=== PATIENT | male | born 1930 | race Caucasian/White ===

== ENCOUNTER 2018-03-07 11:40 | Inpatient (IN) | payer OTHER ==
[2018-03-07 14:37] LABS: Albumin 2.8 g/dL (3.4-5.0); Bilirubin Direct 0.1 mg/dL (0-0.2); Bilirubin Total 0.3 mg/dL (0.2-1.0); Protein, Total 7.3 g/dL (6.4-8.2); Troponin (Emerg Dept Use Only) 0.11 ng/mL (0.0-0.045)
[2018-03-07] MEDS ORDERED: NA CHLORIDE 0.9% 500 ML ONE (14:45)
[2018-03-07] MEDS ORDERED: NA CHLORIDE 0.9% 1,000 ML ONE (14:45)
[2018-03-07 14:52] LABS: Absolute Lymphocytes (CBC) 0.9 K/uL (0.7-4.9); Absolute Monocytes 0.6 K/uL (0.1-1.3); Absolute Neutrophil 6.6 K/uL (1.8-8.0); Basophils % 0.6 % (0-1.3); Eosinophils % 0.5 % (0-4.4); Hematocrit 31.8 % (39.6-49.0); Lymphocytes % 11.2 % (15.3-44.8); MCH 31.2 pg (27.0-35.0); MCV 86.9 fL (80-100); MPV 7.7 fL (7.6-11.3); Monocytes % 7.5 % (3.3-12.3); RBC Red Blood Cell Count 3.66 M/uL (4.33-5.43)
--- NOTE | 2018-03-07 14:53 | EKG ---
Test Date: 2018-03-07 Test Time: 13:56:03 Systems Programmer: PATEL MEASUREMENT RESULTS: Intervals: Rate: 86 [place]: 204 QRSD: 144 QT: 400 QTc: 478 [place]: P: [place]: 204 QRS: 11 T: 27 INTERPRETIVE STATEMENTS: Normal sinus rhythm Right bundle branch block Abnormal ECG Compared to ECG 01/17/2014 09:54:51 Sinus tachycardia no longer present Electronically Signed On 03-07-18 14:53:02 CABLE MAKER by Carlos Montejo
[2018-03-07 14:59] LABS: Protime INR 1.12
--- NOTE | 2018-03-07 15:52 | RAD REPORT ---
EXAM DESCRIPTION: CT - Abdomen Pelvis Wo Contrast - 03/07/2018 3:33 pm CLINICAL HISTORY: Abdominal pain COMPARISON: January 2014 TECHNIQUE: Axial [address] imaging of the abdomen and pelvis was performed without IV contrast. No IV contrast was given because of allergy, abnormal renal function, patient refusal or physician re quest. No oral contrast was given. All CT scans are performed using dose optimization technique as appropriate and may include automated exposure control or mA/KV adjustment according to patient size. FINDINGS: Patient has interstitial thickening throughout both lung bases progressive but not new fro m 2013. This could be progressive fibrosis, interstitial edema/ infiltrate or a combination. Small hi atal hernia is present. The liver, spleen and pancreas show no suspicious findings on non-contrast imaging. Gallbladder and b iliary tree are also without suspicious finding. No hydronephrosis or suspicious renal mass. No significant adrenal finding. Isodense renal masses an d pyelonephritis cannot be excluded in the absence of IV contrast. The urinary bladder is without sig nificant finding. No gastric dilatation or gastric wall thickening. Multiple distended small bowel loops are present. C olon is not dilated. No point of obstruction identified. Patient has bilateral inguinal hernias. The right inguinal hernia contains loops of small bowel. No bowel wall edema. This does not appear to be a point of obstruction. Distal descending colon extends into the left inguinal hernia. No free air or pneumatosis. Prostate gland is enlarged. No suspicious bony findings. IMPRESSION: Multiple distended but nondilated small bowel loops. Small bowel obstruction is not iden tifiable at this time. No free air, abscess or surgically emergent finding. Bilateral inguinal hernias are present containing small bowel on the right and colon on the left. No bowel wall thickening or edema. Interstitial thickening throughout both lung bases progressive from 2013 comparison. This could be pr ogressive fibrosis, superimposed infiltrate/edema or a combination. Full assessment is limited is the absence of IV contrast.
--- NOTE | 2018-03-07 16:57 | ER ---
Nurse's Notes [facility] Name: Sushant Garrett Age: 87 yrs Sex: Male : 1930 Arrival Date: 03/07/2018 Time: 11:46 Bed 5 Private MD: Unknown, Unknown Diagnosis: Weakness;Unspecified kidney failure;Non-ST elevation (NSTEMI) myocardial infarction;Nausea;Diarrhea, unspecified Presentation: 03/07 12:01 Presenting complaint: Patient states: Decreased appetite and insomnia for 6 days. aj Diarrhea for 3 days. Transition of care: patient was not received from another setting of care. Onset of symptoms was March 01, 2018. Risk Assessment: Do you want to hurt yourself or someone else? Patient reports no desire to harm self or others. Initial Sepsis Screen: Does the patient meet any 2 criteria? No. Patient's initial sepsis screen is negative. Does the patient have a suspected source of infection? No. Patient's initial sepsis screen is negative. Care prior to arrival: None. 12:01 Method Of Arrival: Wheelchair aj 12:01 Acuity: MIKE 3 aj Triage Assessment: 12:03 General: Appears in no apparent distress. comfortable, Behavior is calm, cooperative, aj appropriate for age. Pain: Denies pain. Neuro: Level of Consciousness is awake, alert, obeys commands, Oriented to person, place, time, situation, Appropriate for age. Respiratory: Airway is patent Respiratory effort is even, unlabored, Respiratory pattern is regular, symmetrical. GI: Reports anorexia. Derm: Skin is intact, is healthy with good turgor, Skin is pink, warm \T\ dry. normal. Historical: - Allergies: 12:03 No Known Allergies; aj - Home Meds: 12:03 Tarceva 150 mg oral tab 1 tab once daily [Active]; dicyclomine 10 mg Oral cap 1 cap 3 aj times per day [Active]; levothyroxine 150 mcg tab 1 tab once daily [Active]; - PMHx: 12:03 Cancer, Lung; aj - PSHx: 12:03 lung biopsy; aj - Immunization history:: Adult Immunizations up to date. - Social history:: Smoking status: Patient/guardian denies using tobacco. - Ebola Screening: : Patient negative for fever greater than or equal to 101.5 degrees Fahrenheit, and additional compatible Ebola Virus Disease symptoms Patient denies exposure to infectious person Patient denies travel to an Ebola-affected area in the 21 days before illness onset No symptoms or risks identified at this time. - Family history:: not pertinent. Screenin:56 Abuse screen: Denies threats or abuse. Denies injuries from another. Nutritional bp screening: No deficits noted. Tuberculosis screening: No symptoms or risk factors identified. Fall Risk None identified. Assessment: 12:56 General: SEE TRIAGE NOTE. bp 14:17 Reassessment: PO CONTRAST COMPLETED, CT NOTIFIED. bp 14:55 Reassessment: IVF INFUSING, LAB AND RAD RESULTS PENDING, VS STABLE ON MONITOR. bp 17:23 Reassessment: ADMIT MD AT B/S. bp 18:13 Reassessment: IVF INFUSING, ADMIT IN PROCESS. bp 19:15 General: Appears in no apparent distress. Behavior is calm, cooperative, appropriate bp for age. Pain: Denies pain. Neuro: Level of Consciousness is awake, alert, obeys commands, Oriented to person, place, time, situation. Cardiovascular: Patient's skin is warm and dry. Respiratory: Airway is patent Respiratory effort is even, unlabored, Respiratory pattern is regular, symmetrical. GI: Abdomen is non-distended. Derm: Skin is pink, warm \T\ dry. 19:15 General: Appears in no apparent distress. Behavior is calm, cooperative, appropriate ea for age. Pain: Denies pain. Neuro: Level of Consciousness is awake, alert, obeys commands, Oriented to person, place, time, situation. Cardiovascular: Patient's skin is warm and dry. Respiratory: Airway is patent Respiratory effort is even, unlabored, Respiratory pattern is regular, symmetrical. GI: Abdomen is non-distended. Derm: Skin is pink, warm \T\ dry. 19:49 Reassessment: Patient appears in no apparent distress at this time. Patient and/or jd3 family updated on plan of care and expected duration. Pain level reassessed. Patient is alert, oriented x 3, equal unlabored respirations, skin warm/dry/pink. 20:12 Reassessment: Patient and/or family updated on plan of care and expected duration. Pain ea level reassessed. Report called to Brittnee WALDRON. 20:53 Reassessment: Patient and/or family updated on plan of care and expected duration. Pain ea level reassessed. Patient is alert, oriented x 3, equal unlabored respirations, skin warm/dry/pink. 21:02 Reassessment: Patient appears in no apparent distress at this time. Patient and/or jd3 family updated on plan of care and expected duration. Pain level reassessed. Patient is alert, oriented x 3, equal unlabored respirations, skin warm/dry/pink. Vital Signs: 12:03 BP 119 / 64; Pulse 52; Resp 19; Temp 98.5; Pulse Ox 96% on R/A; Weight 63.5 kg; Height aj 5 ft. 6 in. (167.64 cm); 14:14 BP 113 / 70; Pulse 127; Resp 18; Pulse Ox 96% ; bp 14:54 BP 106 / 57; Pulse 94; Resp 19; Pulse Ox 98% ; bp 17:00 BP 112 / 43; Pulse 86; Resp 21; Pulse Ox 99% ; bp 19:47 BP 102 / 64; Pulse 88; Resp 18 S; Pulse Ox 100% on R/A; jd3 20:53 BP 110 / 60; Pulse 80; Resp 80; Pulse Ox 99% on R/A; ea 21:02 BP 105 / 60; Pulse 83; Resp 19 S; Pulse Ox 100% on R/A; jd3 12:03 Body Mass Index 22.60 (63.50 kg, 167.64 cm) aj ED Course: 11:46 Patient arrived in ED. mr 11:47 Unknown, Unknown is Private Physician. mr 12:02 Triage completed. aj 12:03 Arm band placed on left wrist. Patient placed in waiting room, Patient notified of wait aj time. 12:55 Michael Jorge, RN is Primary Nurse. bp 12:56 Patient has correct armband on for positive identification. Bed in low position. Call bp light in reach. Side rails up X2. Adult w/ patient. 13:00 Sonu Soliman MD is Attending Physician. dwight 14:17 Inserted saline lock: 22 gauge in right antecubital area, using aseptic technique. bp Blood collected. 14:29 X-ray completed. Portable x-ray completed in exam room. Patient tolerated procedure jb2 well. 14:30 XRAY Chest (1 view) In Process Unspecified. EDMS 14:39 Lab(s) recollected, by me, sent to lab. [facility] 15:32 CT completed. Patient tolerated procedure well. Patient moved to CT via stretcher. nj Patient moved back from CT. 15:33 Abdomen In Process Unspecified. EDMS 16:49 Kierra Whelan MD is Hospitalizing Provider. dwight 19:52 Straight cath inserted, using sterile technique, 16 Fr. Specimen obtained. bp 19:52 No provider procedures requiring assistance completed. Patient admitted, IV remains in bp place. 20:39 Ultrasound completed. Patient tolerated well. Patient moved back from ultrasound. lc3 Administered Medications: 14:20 Drug: NS 0.9% 500 ml Route: IV; Rate: bolus; Site: right antecubital; bp 19:52 Follow up: Response: No adverse reaction; IV Status: Completed infusion jd3 14:20 Drug: NS 0.9% 1000 ml Route: IV; Rate: 125 ml/hr; Site: right antecubital; bp 19:52 Follow up: Response: No adverse reaction; IV Status: Infusion continued upon admission jd3 17:36 Drug: Aspirin 162 mg Route: PO; bp 19:51 Follow up: Response: No adverse reaction jd3 Outcome: 16:57 Decision to Hospitalize by Provider. dwight 19:53 Condition: stable bp 19:53 Instructed on the need for admit, Demonstrated understanding of instructions, follow-up care, medications. 20:11 Admitted to Med/surg accompanied by tech, room 415, with chart, Report called to Brittnee michele RN 21:03 Patient left the ED. jd3 Signatures: Dispatcher [employer] EDMS Jes Agee, Sonu Wright RN, MD MD cha Rivera, Martha mr Garcia, Rehan barraza2 Estee Harman Nathan nj Herrera, Deanna 3 Brenna Monroe RN RN ea Davies, Jonathon, RN RN jMichael White, RN RN bp
--- NOTE | 2018-03-07 16:57 | EDPHYS ---
Physician Documentation [facility] Name: Sushant Garrett Age: 87 yrs Sex: Male : 1930 Arrival Date: 03/07/2018 Time: 11:46 Bed 5 Private MD: Unknown, Unknown ED Physician Sonu Soliman HPI: 03/07 13:38 This 87 yrs old Male presents to ER via Wheelchair with complaints of dwight Dehydration. 13:38 The patient presents with abdominal pain in the upper abdomen, in the lower abdomen, dwight abdominal distention in the upper abdomen, in the lower abdomen. Onset: The symptoms/episode began/occurred 3 day(s) ago. The patient presents to the emergency department with nausea, diarrhea, abdominal pain, of the right upper quadrant, left upper quadrant, right lower quadrant and left lower quadrant. Onset: The symptoms/episode began/occurred 3 day(s) ago. Possible causes: unknown. The symptoms are aggravated by nothing. The symptoms are alleviated by remaining still. The symptoms do not radiate. Historical: - Allergies: 12:03 No Known Allergies; aj - Home Meds: 12:03 Tarceva 150 mg oral tab 1 tab once daily [Active]; dicyclomine 10 mg Oral cap 1 cap 3 aj times per day [Active]; levothyroxine 150 mcg tab 1 tab once daily [Active]; - PMHx: 12:03 Cancer, Lung; aj - PSHx: 12:03 lung biopsy; aj - Immunization history:: Adult Immunizations up to date. - Social history:: Smoking status: Patient/guardian denies using tobacco. - Ebola Screening: : Patient negative for fever greater than or equal to 101.5 degrees Fahrenheit, and additional compatible Ebola Virus Disease symptoms Patient denies exposure to infectious person Patient denies travel to an Ebola-affected area in the 21 days before illness onset No symptoms or risks identified at this time. - Family history:: not pertinent. ROS: 13:38 Constitutional: Negative for fever, chills, and weight loss, Eyes: Negative for injury, dwight pain, redness, and discharge, ENT: Negative for injury, pain, and discharge, Neck: Negative for injury, pain, and swelling, Cardiovascular: Negative for chest pain, palpitations, and edema, Respiratory: Negative for shortness of breath, cough, wheezing, and pleuritic chest pain, Back: Negative for injury and pain, : Negative for injury, bleeding, discharge, and swelling, MS/Extremity: Negative for injury and deformity, Skin: Negative for injury, rash, and discoloration, Neuro: Negative for headache, weakness, numbness, tingling, and seizure, Psych: Negative for depression, anxiety, suicide ideation, homicidal ideation, and hallucinations, Allergy/Immunology: Negative for hives, rash, and allergies, Endocrine: Negative for neck swelling, polydipsia, polyuria, polyphagia, and marked weight changes, Hematologic/Lymphatic: Negative for swollen nodes, abnormal bleeding, and unusual bruising. 13:38 Abdomen/GI: Positive for abdominal pain, of the right upper quadrant, left upper quadrant, right lower quadrant and left lower quadrant. Exam: 13:38 Constitutional: This is a well developed, well nourished patient who is awake, alert, dwight and in no acute distress. Head/Face: Normocephalic, atraumatic. Eyes: Pupils equal round and reactive to light, extra-ocular motions intact. Lids and lashes normal. Conjunctiva and sclera are non-icteric and not injected. Cornea within normal limits. Periorbital areas with no swelling, redness, or edema. ENT: Nares patent. No nasal discharge, no septal abnormalities noted. Tympanic membranes are normal and external auditory canals are clear. Oropharynx with no redness, swelling, or masses, exudates, or evidence of obstruction, uvula midline. Mucous membranes moist. Neck: Trachea midline, no thyromegaly or masses palpated, and no cervical lymphadenopathy. Supple, full range of motion without nuchal rigidity, or vertebral point tenderness. No Meningismus. Chest/axilla: Normal chest wall appearance and motion. Nontender with no deformity. No lesions are appreciated. Cardiovascular: Regular rate and rhythm with a normal S1 and S2. No gallops, murmurs, or rubs. Normal PMI, no JVD. No pulse deficits. Respiratory: Lungs have equal breath sounds bilaterally, clear to auscultation and percussion. No rales, rhonchi or wheezes noted. No increased work of breathing, no retractions or nasal flaring. Back: No spinal tenderness. No costovertebral tenderness. Full range of motion. Male : Normal genitalia with no discharge or lesions. Skin: Warm, dry with normal turgor. Normal color with no rashes, no lesions, and no evidence of cellulitis. MS/ Extremity: Pulses equal, no cyanosis. Neurovascular intact. Full, normal range of motion. Neuro: Awake and alert, GCS 15, oriented to person, place, time, and situation. Cranial nerves II-XII grossly intact. Motor strength 5/5 in all extremities. Sensory grossly intact. Cerebellar exam normal. Normal gait. Psych: Awake, alert, with orientation to person, place and time. Behavior, mood, and affect are within normal limits. 13:38 Abdomen/GI: Inspection: distension, Bowel sounds: normal, Palpation: mild abdominal tenderness, in the right lower quadrant, Liver: no appreciated palpable abnormalities, Hernia: noted in the right inguinal area and right femoral area, incarceration, is not appreciated, tenderness, that is mild, bowel sounds are appreciated on auscultation. Vital Signs: 12:03 BP 119 / 64; Pulse 52; Resp 19; Temp 98.5; Pulse Ox 96% on R/A; Weight 63.5 kg; Height aj 5 ft. 6 in. (167.64 cm); 14:14 BP 113 / 70; Pulse 127; Resp 18; Pulse Ox 96% ; bp 14:54 BP 106 / 57; Pulse 94; Resp 19; Pulse Ox 98% ; bp 17:00 BP 112 / 43; Pulse 86; Resp 21; Pulse Ox 99% ; bp 19:47 BP 102 / 64; Pulse 88; Resp 18 S; Pulse Ox 100% on R/A; jd3 20:53 BP 110 / 60; Pulse 80; Resp 80; Pulse Ox 99% on R/A; ea 21:02 BP 105 / 60; Pulse 83; Resp 19 S; Pulse Ox 100% on R/A; jd3 12:03 Body Mass Index 22.60 (63.50 kg, 167.64 cm) MDM: 13:00 Patient medically screened. [facility] 13:41 Data reviewed: vital signs, nurses notes, lab test result(s), EKG, radiologic studies, [facility] CT scan, plain films. 03/07 13:36 Order name: Basic Metabolic Panel; Complete Time: 16:43 [facility] 03/07 13:36 Order name: CBC with Diff; Complete Time: 16:43 [facility] 03/07 13:36 Order name: LFT's; Complete Time: 16:43 [facility] 03/07 13:36 Order name: Magnesium; Complete Time: 16:43 [facility] 03/07 13:36 Order name: NT PRO-BNP; Complete Time: 16:43 [facility] 03/07 13:36 Order name: PT-INR; Complete Time: 16:43 [facility] 03/07 13:36 Order name: Troponin (emerg Dept Use Only); Complete Time: 16:43 [facility] 03/07 13:36 Order name: Lipase; Complete Time: 16:43 [facility] 03/07 13:36 Order name: Urine Culture [facility] 03/07 13:36 Order name: Stool Culture [facility] 03/07 13:36 Order name: Fecal Leukocyte Stain [facility] 03/07 13:36 Order name: CDIFF [facility] 03/07 13:36 Order name: Lactate; Complete Time: 16:43 [facility] 03/07 18:42 Order name: T4 Free [facility] 03/07 13:36 Order name: XRAY Chest (1 view) [facility] 03/07 13:36 Order name: EKG; Complete Time: 13:39 [facility] 03/07 13:36 Order name: Cardiac monitoring; Complete Time: 14:06 [facility] 03/07 13:36 Order name: EKG - Nurse/Tech; Complete Time: 14:06 [facility] 03/07 13:36 Order name: IV Saline Lock; Complete Time: 14:06 [facility] 03/07 15:02 Order name: Abdomen ; Complete Time: 16:43 [facility] 03/07 16:57 Order name: CONS Physician Consult [facility] 03/07 16:58 Order name: CONS Physician Consult [facility] 03/07 18:42 Order name: Thyroid Stimulating Hormone [facility] 03/07 19:54 Order name: Urine Dipstick--Ancillary (enter results) [place] 03/07 20:31 Order name: Urine Dipstick-Ancillary [facility] 03/07 20:56 Order name: US [facility] 03/07 13:36 Order name: Labs collected and sent; Complete Time: 14:07 [facility] 03/07 13:36 Order name: O2 Per Protocol; Complete Time: 14:07 [facility] 03/07 13:36 Order name: O2 Sat Monitoring; Complete Time: 14:07 [facility] 03/07 13:36 Order name: Urine Dipstick-Ancillary (obtain specimen); Complete Time: 20:15 [facility] Administered Medications: 14:20 Drug: NS 0.9% 500 ml Route: IV; Rate: bolus; Site: right antecubital; bp 19:52 Follow up: Response: No adverse reaction; IV Status: Completed infusion jd3 14:20 Drug: NS 0.9% 1000 ml Route: IV; Rate: 125 ml/hr; Site: right antecubital; bp 19:52 Follow up: Response: No adverse reaction; IV Status: Infusion continued upon admission jd3 17:36 Drug: Aspirin 162 mg Route: PO; bp 19:51 Follow up: Response: No adverse reaction jd3 Disposition: 03/07/18 16:57 Hospitalization ordered by Kierra Whelan for Inpatient Admission. Preliminary diagnosis are Weakness, Unspecified kidney failure, Non-ST elevation (NSTEMI) myocardial infarction, Nausea, Diarrhea, unspecified. - Bed requested for Telemetry/MedSurg (Inpatient). - Status is Inpatient Admission. jd3 - Condition is Fair. - Problem is new. - Symptoms have improved. UTI on Admission? No Signatures: Dispatcher [employer] EDKS Jes Agee RN RN aj Anderson, Corey, MD MD cha Fitzgerald, Diane, RN RN df Davies, Jonathon, RN RN jd3 Peltier, Brian RN RN bp Corrections: (The following items were deleted from the chart) 15:02 13:39 Abdomen Pelvis W Con+CT.RAD.HEMANT ordered. [facility] 19:17 16:57 Hospitalization Ordered by Keirra Whelan MD for Inpatient Admission. Preliminary df diagnosis is Weakness; Unspecified kidney failure; Non-ST elevation (NSTEMI) myocardial infarction; Nausea; Diarrhea, unspecified. Bed requested for Telemetry/MedSurg (Inpatient). Status is Inpatient Admission. Condition is Fair. Problem is new. Symptoms have improved. UTI on Admission? No. dwight 21:03 19:17 03/07/2018 16:57 Hospitalization Ordered by Kierra Whelan MD for Inpatient jd3 Admission. Preliminary diagnosis is Weakness; Unspecified kidney failure; Non-ST elevation (NSTEMI) myocardial infarction; Nausea; Diarrhea, unspecified. Bed requested for Telemetry/MedSurg (Inpatient). Status is Inpatient Admission. Condition is Fair. Problem is new. Symptoms have improved. UTI on Admission? No. df
--- NOTE | 2018-03-07 16:59 | RAD REPORT ---
EXAM DESCRIPTION: RAD - Chest Single View - 03/07/2018 2:32 pm CLINICAL HISTORY: Decreased appetite, abdominal pain, history of lung cancer COMPARISON: January 2014 TECHNIQUE: AP portable chest image was obtained 1417 hours . FINDINGS: Lungs are fibrotic. Prominent bilateral lung base interstitial stranding is present. Diaph ragm is flattened. Lungs are hyperexpanded compared to the prior study. History indicates prior lung cancer diagnosis. No clearly defined mass on this study. Stranding in the lateral left mid lung field could be progressive scarring or an infiltrate. There are no surgical clips identifiable to indicate a lobectomy or wedge resection. Heart and vasculature are normal. No measurable pleural effusion and no pneumothorax. No acute bony abnormality seen. No acute aortic findings suspected. IMPRESSION: Interstitial fibrotic changes are present. 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 Bilateral lung base interstitial opacification could be focally prominent fibrosis or superimposed in terstitial edema/ infiltrate. Minimal stranding in the lateral mid lung field could be infiltrate or scarring.
[2018-03-07] MEDS ORDERED: ALBUTEROL 2.5 MG/3 ML NEB SOL NEB PRN (17:30)
[2018-03-07] MEDS ORDERED: ONDANSETRON 4 MG/2 ML VIAL IV PRN (17:30)
[2018-03-07] MEDS ORDERED: IPRATROPIUM BROM 0.5MG/2.5ML NEB PRN (17:30)
[2018-03-07] MEDS ORDERED: ACETAMINOPHEN 500 MG TAB PO PRN (17:30)
[2018-03-07] MEDS ORDERED: ASPIRIN EC 81 MG TAB PO ONE (17:40)
--- NOTE | 2018-03-07 17:47 | P.HP ---
Certification for Inpatient Patient admitted to: Inpatient With expected LOS: >2 Midnights Patient will require the following post-hospital care: None Practitioner: I am a practitioner with admitting privileges, knowledge of patient current condition, hospital course, and medical plan of care. Services: Services provided to patient in accordance with Admission requirements found in Title 42 Section 412.3 of the Code of Federal Regulations Patient History Date of Service: 03/07/18 Primary Care Provider: Dr. Tirado([place], [place]); Oncology-Dr. Donahue() Reason for admission: Nausea, diarrhea History of Present Illness: 87-year-old male presented to the emergency room with nausea and diarrhea. Patient reports that he has been having nausea and diarrhea for quite some time. He denies any significant abdominal pain. He also denies any chest pain, shortness of breath or palpitations. Recently the diarrhea has been very watery. There is no blood in the stool or melena. He denies any fever or chills. He reports that the nausea and diarrhea have been consistent since he started on Tarceva his lung cancer medication. Most recently he has had poor oral intake. His daughter told him he needed to go to the emergency room for further evaluation. He initially resisted but after talking to his PCP it was recommended that he go to the ER for evaluation. In the ER he was evaluated. Blood pressure stable. White count 8.2, hemoglobin 11.4, platelet count of 215. Sodium 128, potassium 4.0, BUN of 65, creatinine 3.3 with a GFR of 18. Glucose 111. Lactic acid 1.1, AST 53. Troponin elevated at 0.11 with a BNP of 5252. Chest x-ray showed COPD pattern. EKG showed no significant ST changes. CT scan of the abdomen showed multiple distended but nondilated small bowel loops. Small-bowel obstruction was not identified at this time. No free air or abscess noted. No surgically emergent finding noted. Patient has bilateral inguinal hernia as. No bowel wall thickening or edema. Interstitial thickening throughout both lungs bases progressive since 2013. Patient was admitted for further evaluation. When I saw the patient ER, he appeared stable. He did not appear septic. He family was at bedside. He reports heavy use an antibiotic for for 10 days recently foreign infection in his toe. He has been taking Tarceva for over 5 years. Since taking medication-Tarceva he has noted increased nausea and diarrhea which is the potential side effect. The patient has a history of hypothyroidism, non small-cell lung cancer, former tobacco use, restless leg syndrome. Allergies No Known Allergies Allergy (Verified 08/08/12 18:11) Home medications list reviewed: Yes Home Medications: Ascorbic Acid [Vitamin C*] 500 mg PO BEDTIME 08/09/12 Aspirin Enteric Coated [ASPIRIN 81 MG EC*] 81 mg PO DAILY 08/09/12 Calcium 600 mg PO DAILY 08/09/12 Levothyroxine [Synthroid*] 150 mcg PO [id number] 08/09/12 Lysine [l-Lysine] 500 mg PO BEDTIME 08/09/12 Multivitamin [Multiple Vitamins] 1 each PO DAILY 08/09/12 [place]-3 Fatty Acids [Fish Oil] 1,000 mg PO BID 08/09/12 Omeprazole [Prilosec] 20 mg PO DAILY 08/09/12 Pramipexole Di-HCl [Mirapex] 1.5 mg PO NOON 08/09/12 Saw [place] 320 mg PO DAILY 08/09/12 Sildenafil Citrate [Viagra] 100 mg PO DAILY PRN 08/09/12 Testosterone 180 08/09/12 - Past Medical/Surgical History Diabetic: No -: Non small-cell lung cancer -: Hypothyroidism -: Former tobacco use -: Restless leg syndrome -: Chronic diarrhea/nausea Past Surgical History: Patient denies surgical history Psychosocial/ Personal History: The patient is a . He lives by himself. He has several children - Family History Family History: Reviewed- Non-Contributory - Social History Smoking Status: Former smoker Alcohol use: Yes CD- Drugs: No Caffeine use: Yes Place of Residence: Home Review of Systems General: Weakness, As per HPI Eyes: Unremarkable ENT: Unremarkable Respiratory: Unremarkable Cardiovascular: Unremarkable Gastrointestinal: Nausea, Diarrhea, As per HPI Genitourinary: Unremarkable Musculoskeletal: Unremarkable Integumentary: Unremarkable Neurological: Unremarkable Lymphatics: Unremarkable Physical Examination - Physical Exam General: Alert, In no apparent distress, Oriented x3, Cooperative HEENT: Atraumatic, Normocephalic, PERRLA, Other (Dry mucous membranes) Neck: Supple Respiratory: Clear to auscultation bilaterally, Normal air movement Cardiovascular: Normal pulses, Regular rate/rhythm Gastrointestinal: Normal bowel sounds, Soft and benign, Non-distended, No ascites, No tenderness, No masses, No rebound, No guarding Musculoskeletal: No contractures, No erythema, No tenderness, No warmth Integumentary: No tenderness/swelling, No erythema, No warmth, No cyanosis Neurological: Normal speech, Normal strength at 5/5 x4 extr, Normal tone, Normal affect - Studies Laboratory Data (last 24 hrs) 03/07/18 14:37: PT 13.2 H, INR 1.12 03/07/18 14:02: WBC 8.2, Hgb 11.4 L, Hct 31.8 L, Plt Count 215 03/07/18 14:02: Sodium 128 L, Potassium 4.0, BUN 65 H, Creatinine 3.30 H, Glucose 111 H, Magnesium 2.0, Total Bilirubin 0.3, AST 53 H, ALT 53, Alkaline Phosphatase 106, Lipase 333 Assessment and Plan - Plan Impression: Nausea, diarrhea likely related to colitis versus [id number] with noted dehydration complicated with acute renal failure and hyponatremia Non-small cell lung cancer COPD Former tobacco use Hypothyroidism Elevated troponin Restless leg syndrome Plan: Nausea, diarrhea likely related to colitis versus [id number]-[id number] with noted dehydration complicated with acute renal failure and hyponatremia: Will start IV fluids. Will also start Cipro and Flagyl as colitis is suspected. CT scan reviewed. Will check stool for culture, guaiac, and C diff colitis. Will monitor electrolytes closely. Patient has been taking Tarceva which can cause nausea and diarrhea. I will try to get a hold of his oncologist tomorrow discuss the possibility of discontinuation of medication. Will continue to hold Tarceva at this time. Will check renal ultrasound to evaluate for possible renal disease or dehydration. Will consult Nephrology to further evaluate. Non-small cell lung cancer: Will maintain sats above 90%. Will hold Tarceva due to above findings. Will discuss with his oncologist with about the possibility of stopping this medication COPD: Suspect the patient has underlying COPD. Will start Brovana and albuterol nebs. Will maintain sats above 90%. Former tobacco use: Patient has not smoked in quite some time. Hypothyroidism: Will continue with his medication. Will check tsh and free T4. Elevated troponin: I suspect this is likely stress related. Patient without any significant EKG changes. Will continue monitor EKG and troponin. Will check echocardiogram. Will consult cardiology for further evaluation and recommendation. Restless leg syndrome: Will continue with his medication. Discharge Plan: Home - Advance Directives Does patient have a Living Will: Yes Does patient have a Durable POA for Healthcare: No - Code Status/Comfort Care Code Status Assessed: Yes (Patient is DNR) Time Spent Managing Pts Care (In Minutes): 55
[2018-03-07] MEDS ORDERED: ENOXAPARIN 40 MG/0.4 ML SQ SCH (18:00)
[2018-03-07 18:41] LABS: Thyroid Stimulating Hormone 5.65 uIU/mL (0.360-3.740)
[2018-03-07 20:30] LABS: Urine Blood TRACE (NEG); Urine Glucose NEGATIVE (NEG); Urine Protein 2+ (NEG); Urine Specific Gravity 1.015 (1.005-1.030); Urine pH 5.5 (5.0-7.0)
[2018-03-07] MEDS: ARFORMOTEROL TARTRATE 15 MCG/2 ML VIAL.NEB NEB SCH (20:40)
--- NOTE | 2018-03-07 20:55 | RAD REPORT ---
EXAM DESCRIPTION: US - Renal Ultrasound-Complete - 03/07/2018 8:39 pm CLINICAL HISTORY: Acute renal failure COMPARISON: CT imaging March 07 FINDINGS: The right kidney measures 10.4 x 5.0 x 4.9 cm. The left kidney measures 10.1 x 4.6 x 3.5 cm. Cortical thickness is normal. Increased cortical echogenicity present consistent with medical shaq al disease. Patient has bilateral extrarenal pelves. No hydronephrosis. No solid mass identifiable. A 4.6 centimeter benign cyst is present upper pole right kidney. Additional small cysts are present. No bladder wall thickening or mass. No intraluminal stone or mass. IMPRESSION: Bilateral extrarenal pelves. No hydronephrosis or solid mass lesion. Medical renal disease is evident. No significant cortical thinning. Benign renal cysts are present.
[2018-03-07] MEDS ORDERED: Ciprofloxacin 200mg IV 200 MG/100 ML IV.SOLN. IV SCH (21:00)
[2018-03-07] MEDS: Ciprofloxacin 200mg IV 200 MG/100 ML IV.SOLN. IV SCH (22:45)
[2018-03-07] MEDS: NA CHLORIDE 0.9% 1,000 ML IV SCH (22:46)
[2018-03-07] MEDS: PRAMIPEXOLE 1 MG TAB PO SCH (22:46)
[2018-03-07] MEDS: ENOXAPARIN 30 MG/0.3 ML SQ SCH (22:46)
[2018-03-07 23:55] LABS: Troponin I 0.08 ng/mL (0.0-0.045)
[2018-03-07 23:57] LABS: CKMB Creatine Kinase MB 13.9 ng/mL (0.3-3.6)
[2018-03-08] MEDS: METRONIDAZOLE 500mg IVPB 500 MG/100 ML BAG IV SCH ×3 (00:41→17:11)
[2018-03-08 04:24] VITALS: BMI 19.7
[2018-03-08] MEDS: NA CHLORIDE 0.9% 1,000 ML IV SCH ×2 (05:03→14:11)
[2018-03-08] MEDS: LEVOTHYROXINE SOD 0.075 MG TAB PO SCH (05:03)
[2018-03-08 07:01] LABS: Absolute Monocytes 0.7 K/uL (0.1-1.3); Absolute Neutrophil 5.1 K/uL (1.8-8.0); Basophils % 0.5 % (0-1.3); Eosinophils % 2.5 % (0-4.4); Hematocrit 30.2 % (39.6-49.0); Lymphocytes % 14.7 % (15.3-44.8); MCH 30.6 pg (27.0-35.0); MCV 86.9 fL (80-100); MPV 7.5 fL (7.6-11.3); Monocytes % 10.3 % (3.3-12.3); RBC Red Blood Cell Count 3.48 M/uL (4.33-5.43)
[2018-03-08 07:04] LABS: Albumin 2.4 g/dL (3.4-5.0); Bilirubin Total 0.3 mg/dL (0.2-1.0); Magnesium 1.8 mg/dL (1.8-2.4); Potassium 3.2 mmol/L (3.5-5.1); Protein, Total 6.1 g/dL (6.4-8.2)
[2018-03-08] MEDS ORDERED: MAGNESIUM SULFATE 1 gm IVPB 1 GM/100 ML BAG IV ONE (07:39)
[2018-03-08 07:55] LABS: Troponin I 0.08 ng/mL (0.0-0.045)
[2018-03-08] MEDS ORDERED: POTASSIUM CL SA 10 MEQ TAB PO ONE (08:00)
[2018-03-08 08:10] LABS: CKMB Creatine Kinase MB 17.9 ng/mL (0.3-3.6)
[2018-03-08] MEDS: ARFORMOTEROL TARTRATE 15 MCG/2 ML VIAL.NEB NEB SCH ×2 (08:26→20:20)
[2018-03-08] MEDS: ENOXAPARIN 30 MG/0.3 ML SQ SCH (08:38)
[2018-03-08] MEDS: ASPIRIN EC 81 MG TAB PO SCH (08:39)
[2018-03-08] MEDS: PANTOPRAZOLE 40MG TABLET PO SCH (08:39)
[2018-03-08] MEDS: CRANBERRY 4200 MG PO SCH ×2 (14:00→21:00)
--- NOTE | 2018-03-08 15:22 | ECHO ---
HEIGHT: 5 ft 10 in WEIGHT: 137 lb 9.6 oz DATE OF STUDY: 03/08/[address]: Reynaldo Prasad DO 2-DIMENSIONAL: YES M.MODE: YES DOPPLER: YES COLOR FLOW: YES TDS: NO PORTABLE: NO DEFINITY: NO BUBBLE STUDY: NO DIAGNOSIS: ELEVATED TROPONIN CARDIAC HISTORY: CATHERIZATION: NO SURGERY: NO PROSTHETIC VALVE: NO PACEMAKER: NO MEASUREMENTS (cm) DIASTOLIC (NORMALS) SYSTOLIC (NORMALS) IVSd 1.2 (0.6-1.2) LA Diam 3.7 (1.9-4.0) LVEF 60% LVIDd 4.8 (3.5-5.7) LVIDs 3.2 (2.0-3.5) %FS 32% LVPWd 1.3 (0.6-1.2) Ao Diam 2.9 (2.0-3.7) 2 DIMENSIONAL ASSESSMENT: RIGHT ATRIUM: NORMAL LEFT ATRIUM: NORMAL RIGHT VENTRICLE: NORMAL LEFT VENTRICLE: NORMAL TRICUSPID VALVE: NORMAL MITRAL VALVE: NORMAL PULMONIC VALVE: NORMAL AORTIC VALVE: NORMAL PERICARDIAL EFFUSION: NONE AORTIC ROOT: NORMAL LEFT VENTRICULAR WALL MOTION: NORMAL EJECTION FRACTION. DOPPLER/COLOR FLOW: MILD TRICUSPID REGURGITATION. COMMENTS: MILD TRICUSPID REGURGITATION. NORMAL LEFT VENTRICULAR SIZE AND FUNCTION. LOW LEFT VENTRICULAR COMLIANCE. TECHNOLOGIST: PATRICIA LYNN
--- NOTE | 2018-03-08 16:45 | P.PN ---
Subjective Date of Service: 03/08/18 Primary Care Provider: Dr. Tirado([place], [place]); Oncology-Dr. Donahue([phone]) Chief Complaint: Nausea, diarrhea Subjective: Improving Physical Examination - Vital Signs Temperature: 97.2 F Blood Pressure: 106/61 Pulse: 74 Respirations: 18 Pulse Ox (%): 100 - Physical Exam General: Alert, In no apparent distress, Oriented x3, Cooperative HEENT: Atraumatic Neck: Supple Respiratory: Clear to auscultation bilaterally, Normal air movement Cardiovascular: Normal pulses, Regular rate/rhythm Gastrointestinal: Normal bowel sounds, Soft and benign, Non-distended, No tenderness, No masses, No rebound, No guarding Musculoskeletal: No erythema, No tenderness, No warmth Integumentary: No tenderness/swelling, No erythema, No warmth, No cyanosis Neurological: Normal speech, Normal strength at 5/5 x4 extr, Normal tone, Normal affect - Studies Medications List Reviewed: Yes Assessment & Plan Discharge Plan: Home Plan to discharge in: 48 Hours Physician Review Additional Text: Impression: Nausea, diarrhea likely related to colitis versus [id number] with noted dehydration complicated with 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 Will also continue with Cipro and Flagyl. Patient being evaluated for C diff colitis. Nausea and diarrhea may be related to his anti cancer medication-Tarceva. Will try to get a hold of his oncologist to further evaluate. Stool cultures obtained. Will ambulate with physical therapy. Will discuss further with nephrology. It appears patient has underlying chronic kidney disease. Non-small cell lung cancer: Will maintain sats above 90%. Will hold Tarceva due to above findings. Will discuss with his oncologist with about the possibility of stopping this medication COPD: Suspect the patient has underlying COPD. Will continue with Brovana and albuterol nebs. Will maintain sats above 90%. Former tobacco use: Patient has not smoked in quite some time. Hypothyroidism: Will continue with his medication. Will review and adjust medication Elevated troponin: I suspect this is likely stress related. Will check on echocardiogram. Case discussed with cardiology. No cardiac intervention recommended at this time. Restless leg syndrome: Will continue with his medication. Time Spent Managing Pts Care (In Minutes): 55
[2018-03-08] MEDS: DOCOSAHEXANOIC AC/EPA 1000 MG PO SCH (21:10)
[2018-03-08] MEDS: PRAMIPEXOLE 1 MG TAB PO SCH (21:11)
[2018-03-08] MEDS: Ciprofloxacin 200mg IV 200 MG/100 ML IV.SOLN. IV SCH (21:13)
--- NOTE | 2018-03-08 21:19 | P.CNS ---
Date of Consult: 03/08/18 Reason for Consult: Abnormal RFT and Hypokalemia Primary Care Provider: Dr. Tirado([place], [place]); Oncology-Dr. Donahue([phone]) Chief Complaint: Nausea, diarrhea History of Present Illness: 87-year-old man with PMHx of CKD , non-small cell lung ca on Tarceva, and COPD with chronic diarrhea Pt was admitted for woresning diarrhea of the last few days pt have chronic diarrhea since started chemotherapy 8 days prior to admission was prescribed antbiotics for foot infection and his symptoms woresen no chest pain , palpitation, nausea, vomiting In the ER he was evaluated. \ White count 8.2, hemoglobin 11.4, platelet count of 215. Sodium 128, potassium 4.0, BUN of 65, creatinine 3.3 with a GFR of 18. Glucose 111. Lactic acid 1.1, AST 53. Troponin elevated at 0.11 with a BNP of 5252. Allergies No Known Allergies Allergy (Verified 08/08/12 18:11) Home Medications: Levothyroxine [Synthroid*] 0.15 mg PO [id number] 08/09/12 Multivitamin [Multiple Vitamins] 1 each PO DAILY 08/09/12 Pramipexole Di-HCl [Mirapex] 1.5 mg PO NOON 08/09/12 [place] 4,200 mg PO TID 03/08/18 Cyanocobalamin (Vitamin B-12) [Vitamin B12] 1 tab PO DAILY 03/08/18 Dicyclomine [Bentyl*] 20 mg PO TID 03/08/18 Erlotinib HCl [Tarceva] 1 tab PO DAILY 03/08/18 Fish Oil/Dha/Epa [Fish Oil 1,200 mg Fish Oil] 1,200 mg PO BID 03/08/18 - Past Medical/Surgical History Diabetic: No -: Non small-cell lung cancer -: Hypothyroidism -: Former tobacco use -: Restless leg syndrome -: Chronic diarrhea/nausea -: polyp removal -: blister on lip removed Psychosocial/ Personal History: The patient is a . He lives by himself. He has several children - Social History Smoking Status: Former smoker Alcohol use: Yes CD- Drugs: No Caffeine use: Yes Place of Residence: Home Physical Examination Temp Pulse Resp BP Pulse Ox 97.2 F 74 18 106/61 100 03/08/18 16:45 03/08/18 16:45 03/08/18 16:45 03/08/18 16:45 03/08/18 16:45 General: Alert, In no apparent distress HEENT: Atraumatic Neck: Supple, Without JVD or thyroid abnormality Respiratory: Clear to auscultation bilaterally Cardiovascular: No edema, Regular rate/rhythm, Normal S1 S2, No gallops, No rubs , No murmurs Gastrointestinal: Normal bowel sounds, Soft and benign - Problems (1) Hyponatremia Current Visit: Yes Status: Acute (2) Dehydration Onset Date: 03/08/18 Current Visit: Yes Status: Acute (3) Diarrhea Onset Date: 03/08/18 Current Visit: Yes Status: Chronic (4) Elevated troponin Onset Date: 03/08/18 Current Visit: Yes Status: Acute (5) Hypothyroidism Onset Date: 03/08/18 Current Visit: Yes Status: Chronic (6) Small cell lung cancer Onset Date: 03/08/18 Current Visit: Yes Status: Acute Conclusions/Impression: 87-year-old man with PMHx of CKD , non-small cell lung ca on Tarceva, and COPD with chronic diarrhea Pt was admitted for woresning diarrhea of the last few days pt have chronic diarrhea since started chemotherapy 8 days prior to admission was prescribed antbiotics for foot infection and his symptoms woresen no chest pain , palpitation, nausea, vomiting In the ER he was evaluated. \ White count 8.2, hemoglobin 11.4, platelet count of 215. Sodium 128, potassium 4.0, BUN of 65, creatinine 3.3 with a GFR of 18. Glucose 111. Lactic acid 1.1, AST 53. Troponin elevated at 0.11 with a BNP of 5252. MARITA on CKD likely due to dehydration Cr 3.3 and improving to 2.9 Cr 1.7 in 2013 will try to get records from PCP US 10.07/18 , echogenic , rt cyst Ua +2 prot, trace bld UPC Elevated CE enzymes aymptomatic cont to trend Hyponatremia improved, due to depletion Hypokalemia due to diarrhea replace as needed Hypothyrodism on saynthroid Non-small Cell lung Ca hold chemo for now diarrhea fu c.diff
[2018-03-08] MEDS ORDERED: POTASSIUM 25 MEQ EFFERV TAB PO ONE (23:54)
[2018-03-09] MEDS: METRONIDAZOLE 500mg IVPB 500 MG/100 ML BAG IV SCH ×2 (00:58→08:35)
[2018-03-09] MEDS: NA CHLORIDE 0.9% 1,000 ML IV SCH ×2 (01:00→14:00)
[2018-03-09 05:47] LABS: Urine Appearance CLEAR; Urine Bilirubin NEGATIVE (NEG); Urine Blood NEGATIVE (NEG); Urine Color YELLOW; Urine Glucose NEGATIVE (NEG); Urine Protein TRACE (NEG); Urine Urobilinogen 0.2 mg/dL (0.2-1.0); Urine pH 5.5 (5.0-7.0)
[2018-03-09 05:53] LABS: Urine Protein/Creatinine Ratio 0.76 ratio (<0.15)
[2018-03-09] MEDS: LEVOTHYROXINE SOD 0.075 MG TAB PO SCH (06:07)
[2018-03-09 06:10] LABS: Urine Microscopic Reflex ORDER UMIC
[2018-03-09 06:26] LABS: Urine Bacteria <20 /HPF (NONE SEEN); Urine Culture Reflex Order NOT NEEDED; Urine RBC NONE SEEN /HPF (NONE SEEN)
[2018-03-09 06:47] LABS: Absolute Lymphocytes (CBC) 1.1 K/uL (0.7-4.9); Absolute Monocytes 0.7 K/uL (0.1-1.3); Absolute Neutrophil 4.4 K/uL (1.8-8.0); Basophils % 0.5 % (0-1.3); Eosinophils % 3.1 % (0-4.4); Hematocrit 26.9 % (39.6-49.0); Lymphocytes % 17.8 % (15.3-44.8); MCH 30.8 pg (27.0-35.0); MCV 86.9 fL (80-100); MPV 7.4 fL (7.6-11.3); Monocytes % 10.8 % (3.3-12.3)
[2018-03-09 06:52] LABS: Albumin 2.2 g/dL (3.4-5.0); Bilirubin Total 0.3 mg/dL (0.2-1.0); Potassium 3.7 mmol/L (3.5-5.1); Protein, Total 5.7 g/dL (6.4-8.2)
[2018-03-09] MEDS: CRANBERRY 4200 MG PO SCH ×2 (08:23→14:00)
[2018-03-09] MEDS: ASPIRIN EC 81 MG TAB PO SCH (08:34)
[2018-03-09] MEDS: DOCOSAHEXANOIC AC/EPA 1000 MG PO SCH (08:34)
[2018-03-09] MEDS: PANTOPRAZOLE 40MG TABLET PO SCH (08:34)
[2018-03-09] MEDS: ENOXAPARIN 30 MG/0.3 ML SQ SCH (08:35)
[2018-03-09] MEDS: ARFORMOTEROL TARTRATE 15 MCG/2 ML VIAL.NEB NEB SCH (08:42)
[2018-03-09 08:58] VITALS: BP 106/51; TEMP 98.1
[2018-03-09] MEDS ORDERED: POTASSIUM 25 MEQ EFFERV TAB PO ONE (09:00)
[2018-03-09] MEDS ORDERED: CYANOCOBALAMIN 1,000 MCG TAB PO SCH (09:00)
[2018-03-09 09:25] LABS: Ferritin 196.8 ng/mL (26-388); Transferrin 148 mg/dL (200-360)
--- NOTE | 2018-03-09 10:39 | P.DS ---
Admission Date: 03/07/18 Discharge Date: 03/09/18 Primary Care Provider: Dr. Tirado([place], [place]); Oncology-Dr. Donahue() Disposition: [facility] CARE Discharge Condition: GOOD Reason for Admission: Nausea, diarrhea Consultations: Nephrology-Dr. Amador Cardiology-Dr. Garber Procedures: CT scan: COMPARISON: January 2014 TECHNIQUE: Axial [address] imaging of the abdomen and pelvis was performed without IV contrast. No IV contrast was given because of allergy, abnormal renal function, patient refusal or physician request. No oral contrast was given. All CT scans are performed using dose optimization technique as appropriate and may include automated exposure control or mA/KV adjustment according to patient size. FINDINGS: Patient has interstitial thickening throughout both lung bases progressive but not new from 2013. This could be progressive fibrosis, interstitial edema/ infiltrate or a combination. Small hiatal hernia is present. The liver, spleen and pancreas show no suspicious findings on non-contrast imaging. Gallbladder and biliary tree are also without suspicious finding. No hydronephrosis or suspicious renal mass. No significant adrenal finding. Isodense renal masses and pyelonephritis cannot be excluded in the absence of IV contrast. The urinary bladder is without significant finding. No gastric dilatation or gastric wall thickening. Multiple distended small bowel loops are present. Colon is not dilated. No point of obstruction identified. Patient has bilateral inguinal hernias. The right inguinal hernia contains loops of small bowel. No bowel wall edema. This does not appear to be a point of obstruction. Distal descending colon extends into the left inguinal hernia. No free air or pneumatosis. Prostate gland is enlarged. No suspicious bony findings. IMPRESSION: Multiple distended but nondilated small bowel loops. Small bowel obstruction is not identifiable at this time. No free air, abscess or surgically emergent finding. Bilateral inguinal hernias are present containing small bowel on the right and colon on the left. No bowel wall thickening or edema. Interstitial thickening throughout both lung bases progressive from 2013 comparison. This could be progressive fibrosis, superimposed infiltrate/edema or a combination. ECHO: Ejection fraction 60% LEFT VENTRICULAR WALL MOTION: NORMAL EJECTION FRACTION. DOPPLER/COLOR FLOW: MILD TRICUSPID REGURGITATION. COMMENTS: MILD TRICUSPID REGURGITATION. NORMAL LEFT VENTRICULAR SIZE AND FUNCTION. LOW LEFT VENTRICULAR COMLIANCE. Renal ultrasound: COMPARISON: CT imaging March 07 FINDINGS: The right kidney measures 10.4 x 5.0 x 4.9 cm. The left kidney measures 10.1 x 4.6 x 3.5 cm. Cortical thickness is normal. Increased cortical echogenicity present consistent with medical renal disease. Patient has bilateral extrarenal pelves. No hydronephrosis. No solid mass identifiable. A 4.6 centimeter benign cyst is present upper pole right kidney. Additional small cysts are present. No bladder wall thickening or mass. No intraluminal stone or mass. IMPRESSION: Bilateral extrarenal pelves. No hydronephrosis or solid mass lesion. Medical renal disease is evident. No significant cortical thinning. Benign renal cysts are present. 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 Patient reports that he has been having nausea and diarrhea for quite some time. He denies any significant abdominal pain. He also denies any chest pain, shortness of breath or palpitations. Recently the diarrhea has been very watery. There is no blood in the stool or melena. He denies any fever or chills. He reports that the nausea and diarrhea have been consistent since he started on Tarceva his lung cancer medication. Most recently he has had poor oral intake. His daughter told him he needed to go to the emergency room for further evaluation. He initially resisted but after talking to his PCP it was recommended that he go to the ER for evaluation. In the ER he was evaluated. Blood pressure stable. White count 8.2, hemoglobin 11.4, platelet count of 215. Sodium 128, potassium 4.0, BUN of 65, creatinine 3.3 with a GFR of 18. Glucose 111. Lactic acid 1.1, AST 53. Troponin elevated at 0.11 with a BNP of 5252. Chest x-ray showed COPD pattern. EKG showed no significant ST changes. CT scan of the abdomen showed multiple distended but nondilated small bowel loops. Small-bowel obstruction was not identified at this time. No free air or abscess noted. No surgically emergent finding noted. Patient has bilateral inguinal hernia as. No bowel wall thickening or edema. Interstitial thickening throughout both lungs bases progressive since 2013. Patient was admitted for further evaluation. When I saw the patient ER, he appeared stable. He did not appear septic. He family was at bedside. He reports heavy use an antibiotic for for 10 days recently foreign infection in his toe. He has been taking Tarceva for over 5 years. Since taking medication-Tarceva he has noted increased nausea and diarrhea which is the potential side effect. The patient has a history of hypothyroidism, non small-cell lung cancer, former tobacco use, restless leg syndrome. Hospital Course: Patient presented with nausea, vomiting and dehydration likely related to medication-Tarceva with possible colitis. Patient was admitted for further evaluation. CT scan revealed no obstruction. C diff culture negative. Patient responded to IV antibiotic therapy and fluids. Tarceva was discontinued. Patient did well during the course of his stay. At discharge he will continue with Cipro 250 mg daily and Flagyl 500 mg 3 times a day for 7 days. I was able to get in contact with his oncologist prior to discharge. Will recommend to hold Tarceva for at least 2 weeks. Recommendations for the patient to follow up with oncology within 2 weeks to determine if the Tarceva can be discontinued or continued after that time. Recommendation is for the patient follow up with GI as an outpatient to further evaluate as well. Patient may require colonoscopy. Patient presented with dehydration. 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 Patient also had hyponatremia. Patient receive IV fluids. Renal function and hyponatremia improved. At discharge recommendation is to recheck lab-BMP in 1 week. Recommendation is for the patient follow up with nephrology as an outpatient to further monitor and address. Recommendation on no further use of nonsteroidal anti-inflammatories. Future medications will need to be renally dosed. Patient likely with underlying COPD. Patient with underlying [id number] lung cancer. As recommended above, will recommend to hold Tarceva for the next 2 weeks. Patient will follow up with his oncologist to determine when to restart her see the after that time. At discharge Symbicort 160 mcg 2 puffs twice daily and Pro air 2 puffs 3 times a day as needed for shortness of breath has been started. Patient may follow up with pulmonology as an outpatient to further monitor and address. Patient has hypothyroidism. Patient will continue with his medication Levoxyl 150 mcg daily. Recommendation to recheck tsh and free T4 in 4-6 weeks to monitor his progress. Patient has restless leg syndrome. Patient will continue with his medication Mirapex 1.5 mg daily. Patient has enlarged prostate per CT scan. Patient may have underlying BPH. Patient may follow up with his PCP to have his PSA evaluated. Patient may benefit with urology evaluation as an outpatient to further monitor and address. Patient with bilateral inguinal hernias. No obstruction identified on CT scan. No heavy lifting, pushing or pulling is recommended. Patient may follow up with surgery as an outpatient to further consider surgery in the future. Patient with anemia with noted iron deficiency. Patient also takes B12 supplementation as an outpatient. At discharge he will continue with iron 325 mg 1 pill once daily. Recommendation to recheck CBC in 2-4 weeks to monitor his progress. Vital Signs/Physical Exam: Temp Pulse Resp BP Pulse Ox 98.1 F 76 18 106/51 L 97 03/09/18 08:00 03/09/18 08:00 03/09/18 08:00 03/09/18 08:00 03/09/18 08:00 General: Alert, In no apparent distress, Oriented x3, Cooperative HEENT: Atraumatic, Normocephalic, Mucous membr. moist/pink Neck: Supple Respiratory: Clear to auscultation bilaterally, Normal air movement Cardiovascular: Normal pulses, Regular rate/rhythm Gastrointestinal: Normal bowel sounds, Soft and benign, Non-distended, No tenderness, No masses, No rebound, No guarding Musculoskeletal: No contractures, No erythema, No tenderness, No warmth Integumentary: No significant lesion, No tenderness/swelling, No erythema, No warmth, No cyanosis Neurological: Normal speech, Normal strength at 5/5 x4 extr, Normal tone, Normal affect Laboratory Data at Discharge: WBC 6.4 K/uL (4.3-10.9) 03/09/18 05:26 Hgb 9.5 g/dL (13.6-17.9) L 03/09/18 05:26 Hct 26.9 % (39.6-49.0) L 03/09/18 05:26 Plt Count 199 K/uL (152-406) 03/09/18 05:26 PT 13.2 SECONDS (9.5-12.5) H 11/28/18 14:37 INR 1.12 03/07/18 14:37 Sodium 137 mmol/L (136-145) 03/09/18 05:26 Potassium 3.7 mmol/L (3.5-5.1) 03/09/18 05:26 BUN 45 mg/dL (7-18) H 03/09/18 05:26 Creatinine 2.40 mg/dL (0.55-1.3) H 03/09/18 05:26 Glucose 94 mg/dL (74-106) 03/09/18 05:26 Magnesium 2.0 mg/dL (1.8-2.4) 03/09/18 05:26 Total Bilirubin 0.3 mg/dL (0.2-1.0) 03/09/18 05:26 AST 35 U/L (15-37) 03/09/18 05:26 ALT 43 U/L (12-78) 03/09/18 05:26 Alkaline Phosphatase 85 U/L (45-117) 03/09/18 05:26 Troponin I 0.08 ng/mL (0.0-0.045) H 03/08/18 05:30 Triglycerides 126 mg/dL (<150) 03/08/18 05:30 Cholesterol 113 mg/dL (<200) 03/08/18 05:30 HDL Cholesterol 52 mg/dL (40-60) 03/08/18 05:30 Cholesterol/HDL Ratio 2.17 03/08/18 05:30 Lipase 333 U/L (73-393) 03/07/18 14:02 Home Medications: Levothyroxine [Synthroid*] 0.15 mg PO [id number] 08/09/12 Pramipexole Di-HCl [Mirapex] 1.5 mg PO NOON 08/09/12 Cranberry 4,200 mg PO TID 03/08/18 Cyanocobalamin (Vitamin B-12) [Vitamin B12] 1 tab PO DAILY 03/08/18 Erlotinib HCl [Tarceva] 1 tab PO DAILY 03/08/18 Fish Oil/Dha/Epa [Fish Oil 1,200 mg Fish Oil] 1,200 mg PO BID 03/08/18 Albuterol Sulfate [Proair Hfa] 2 puff IH TID PRN #1 hfa.aer.ad 03/09/18 Budesonide/Formoterol Fumarate [Symbicort 160-4.5 Mcg Inhaler] 2 puff IH BID #1 hfa.aer.ad 03/09/18 Ciprofloxacin HCl [Cipro 250 MG Tablet*] 250 mg PO DAILY #7 tab 03/09/18 Ferrous Sulfate [Iron] 325 mg PO DAILY #90 tablet 03/09/18 Pantoprazole [Protonix Tab] 40 mg PO DAILY #30 tab 03/09/18 metroNIDAZOLE [Flagyl] 500 mg PO TID #21 tablet 03/09/18 New Medications: Albuterol Sulfate [Proair Hfa] 2 puff IH TID PRN #1 hfa.aer.ad PRN Reason: Shortness Of Breath Budesonide/Formoterol Fumarate [Symbicort 160-4.5 Mcg Inhaler] 2 puff IH BID #1 hfa.aer.ad Ciprofloxacin HCl [Cipro 250 MG Tablet*] 250 mg PO DAILY #7 tab Ferrous Sulfate [Iron] 325 mg PO DAILY #90 tablet metroNIDAZOLE [Flagyl] 500 mg PO TID #21 tablet Pantoprazole [Protonix Tab] 40 mg PO DAILY #30 tab Patient Discharge Instructions: 1. Follow up with PCP in 1 week to follow up this hospitalization. 2. Patient presented with nausea, vomiting and dehydration likely related to medication-Tarceva with possible colitis. Patient was admitted for further evaluation. CT scan revealed no obstruction. C diff culture negative. Patient responded to IV antibiotic therapy and fluids. Tarceva was discontinued. Patient did well during the course of his stay. At discharge he will continue with Cipro 250 mg daily and Flagyl 500 mg 3 times a day for 7 days. I was able to get in contact with his oncologist prior to discharge. Will recommend to hold Tarceva for at least 2 weeks. Recommendations for the patient to follow up with oncology within 2 weeks to determine if the Tarceva can be discontinued or continued after that time. Recommendation is for the patient follow up with GI as an outpatient to further evaluate as well. Patient may require colonoscopy. 3. Patient presented with dehydration. 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 Patient also had hyponatremia. Patient receive IV fluids. Renal function and hyponatremia improved. At discharge recommendation is to recheck lab-BMP in 1 week. Recommendation is for the patient follow up with nephrology as an outpatient to further monitor and address. Recommendation on no further use of nonsteroidal anti-inflammatories. Future medications will need to be renally dosed. 4. Patient likely with underlying COPD. Patient with underlying non- small-cell lung cancer. As recommended above, will recommend to hold Tarceva for the next 2 weeks. Patient will follow up with his oncologist to determine when to restart her see the after that time. At discharge Symbicort 160 mcg 2 puffs twice daily and Pro air 2 puffs 3 times a day as needed for shortness of breath has been started. Patient may follow up with pulmonology as an outpatient to further monitor and address. 5. Patient has hypothyroidism. Patient will continue with his medication Levoxyl 150 mcg daily. Recommendation to recheck tsh and free T4 in 4-6 weeks to monitor his progress. 6. Patient has restless leg syndrome. Patient will continue with his medication Mirapex 1.5 mg daily. 7. Patient has enlarged prostate per CT scan. Patient may have underlying BPH. Patient may follow up with his PCP to have his PSA evaluated. Patient may benefit with urology evaluation as an outpatient to further monitor and address. 8. Patient with bilateral inguinal hernias. No obstruction identified on CT scan. No heavy lifting, pushing or pulling is recommended. Patient may follow up with surgery as an outpatient to further consider surgery in the future. 9. Patient with anemia with noted iron deficiency. Patient also takes B12 supplementation as an outpatient. At discharge he will continue with iron 325 mg 1 pill once daily. Recommendation to recheck CBC in 2-4 weeks to monitor his progress. Diet: AHA Activity: Ad kate Time spent managing pt's care (in minutes): 55
[2018-03-09 14:00] VITALS: O2SAT 97
--- NOTE | 2018-03-09 20:54 | P.PN ---
Subjective Date of Service: 03/09/18 Primary Care Provider: Dr. Tirado([place], [place]); Oncology-Dr. Donahue([phone]) Chief Complaint: Nausea, diarrhea Pt seen and examined before Dc no new complaints diarrhea resolved Cr down to 2.4 Physical Examination - Vital Signs Temperature: 98.1 F Blood Pressure: 106/51 Pulse: 76 Respirations: 18 Pulse Ox (%): 97 - Physical Exam General: Alert HEENT: Atraumatic Neck: Supple, Without JVD or thyroid abnormality Respiratory: Clear to auscultation bilaterally, Normal air movement Cardiovascular: No edema - Studies Medications List Reviewed: Yes Assessment And Plan - Current Problems (Diagnosis) (1) Hyponatremia Status: Acute (2) Dehydration Onset Date: 03/08/18 Status: Acute (3) Diarrhea Onset Date: 03/08/18 Status: Chronic (4) Elevated troponin Onset Date: 03/08/18 Status: Acute (5) Hypothyroidism Onset Date: 03/08/18 Status: Chronic (6) Small cell lung cancer Onset Date: 03/08/18 Status: Acute - Plan 87-year-old man with PMHx of CKD , non-small cell lung ca on Tarceva, and COPD with chronic diarrhea Pt was admitted for woresning diarrhea of the last few days pt have chronic diarrhea since started chemotherapy 8 days prior to admission was prescribed antbiotics for foot infection and his symptoms woresen no chest pain , palpitation, nausea, vomiting In the ER he was evaluated. \ White count 8.2, hemoglobin 11.4, platelet count of 215. Sodium 128, potassium 4.0, BUN of 65, creatinine 3.3 with a GFR of 18. Glucose 111. Lactic acid 1.1, AST 53. Troponin elevated at 0.11 with a BNP of 5252. MARITA on CKD likely due to dehydration Cr down to 2.4 Cr 1.7 in 2014 US 10.4/10 , echogenic , rt cyst Ua +2 prot, trace bld Elevated CE enzymes aymptomatic Hyponatremia resolved due to depletion Hypokalemia resolved due to diarrhea replace as needed Hypothyrodism on saynthroid Non-small Cell lung Ca hold chemo for now diarrhea resolved
--- NOTE | 2018-03-12 11:55 | CON ---
Date of Consultation: 03/08/2018 Reason For Consultation: Elevated troponin. History Of Present Illness: Mr. Garrett is an 87, admitted with weakness, was found to have elevated troponin. He is a DNR. Has no interest in invasive workup. He had a creatinine of 3.3, hemoglobin of 10.6, potassium of 3.2. His BNP was 5152. Troponin was 0.11. His CPKs and MBs were positive. T he patient denied any chest pain, shortness of breath, nausea, vomiting, diaphoresis, PND, orthopnea, pedal edema, palpitation, or syncope. Past Medical History: Lung cancer that is metastatic. Allergies: NONE. Review of Systems: Negative. Social History: Negative. Medications: Include thyroid and multivitamins. Physical Examination: General: He appeared to be weak. He appeared to be his stated age. Vital Signs: Stable. He was afebrile. HEENT: Negative. Neck: Supple with no bruit. Chest: Clear. Cardiac: Revealed a regular rhythm and rate. No murmurs, gallops, or rubs. Abdomen: Benign. Extremities: Revealed no clubbing, cyanosis, or edema. Diagnostic Data: As stated earlier. Impression And Plan: I believe Mr. Garrett main issue is dehydration. His creatinine is elevated. H is potassium is low. I think the troponin elevation and BNP elevation are not clinically significant . There is no symptoms indicating any cardiac issue. Nevertheless, I think he needs to have a renal consult. He needs to be hydrated aggressively. An echocardiogram is pending. No plan to do any in vasive workup on Mr. Garrett. He is a DNR. JATINDER/THAD Voice ID: [id number] Report ID: [id number]
[2018-03-13 21:15] LABS: Albumin, (SPE) 2.5 g/dL (3.8-4.8); Alpha-1-Globulins 0.5 g/dL (0.2-0.3); Alpha-2-Globulins 0.7 g/dL (0.5-0.9); Gamma Globulins 0.8 g/dL (0.8-1.7); INTERPRETATION REPORT
== END 2018-03-09 17:12 | disposition home health service (06) | DRG 392 ==
LOC: ER 11:40 → ERHOLD 16:52 → 4TH 20:16
PROVIDERS: ADMIT Family Medicine; ATTEND Family Medicine
DX: K52.9 Noninfective gastroenteritis and colitis, unspecified (principal); K52.1 Toxic gastroenteritis and colitis; C34.90 Malignant neoplasm of unspecified part of unspecified bronchus or lung; N18.4 Chronic kidney disease, stage 4 (severe); N17.9 Acute kidney failure, unspecified; E87.1 Hypo-osmolality and hyponatremia; T45.1X5A Adverse effect of antineoplastic and immunosuppressive drugs, initial encounter; Y92.9 Unspecified place or not applicable; E03.9 Hypothyroidism, unspecified; G25.81 Restless legs syndrome; Z87.891 Personal history of nicotine dependence; E86.0 Dehydration; J44.9 Chronic obstructive pulmonary disease, unspecified; N40.0 Benign prostatic hyperplasia without lower urinary tract symptoms; K40.20 Bilateral inguinal hernia, without obstruction or gangrene, not specified as recurrent; D50.9 Iron deficiency anemia, unspecified
CPT/HCPCS: 36415; 51702; 71045; 74176; 76770; 80048; 80053; 80061; 80076; 81003; 81015; 82274; 82550; 82553; 82570; 82607; 82728; 83540; 83605; 83690; 83735; 83880; 84132; 84156; 84165; 84439; 84443; 84466; 84484; 85025; 85610; 86334; 87040; 87045; 87046; 87086; 87088; 87177; 87205; 87209; 87493; 89055; 93005; 93306; 96360; 96361; 97163; 99285; J0744; J1650; J3475; J7030; J7605

== ENCOUNTER 2018-03-15 09:26 | Emergency (ER) | payer OTHER ==
[2018-03-15] MEDS ORDERED: NA CHLORIDE 0.9% 500 ML ONE (09:48)
[2018-03-15 09:56] LABS: Absolute Monocytes 0.9 K/uL (0.1-1.3); Absolute Neutrophil 5.5 K/uL (1.8-8.0); Basophils % 0.3 % (0-1.3); Eosinophils % 3.8 % (0-4.4); Hematocrit 26.2 % (39.6-49.0); Lymphocytes % 13.5 % (15.3-44.8); MCH 32.1 pg (27.0-35.0); MCV 88.3 fL (80-100); MPV 6.6 fL (7.6-11.3); Monocytes % 11.6 % (3.3-12.3); RBC Red Blood Cell Count 2.97 M/uL (4.33-5.43)
[2018-03-15 10:14] LABS: Albumin 2.2 g/dL (3.4-5.0); Bilirubin Direct 0.1 mg/dL (0-0.2); Bilirubin Total 0.3 mg/dL (0.2-1.0); Potassium 4.4 mmol/L (3.5-5.1); Protein, Total 6.2 g/dL (6.4-8.2)
[2018-03-15] MEDS ORDERED: NA CHLORIDE 0.9% 250 ML ONE (10:28)
[2018-03-15] MEDS ORDERED: NA CHLORIDE 0.9% 1,000 ML ONE (12:06)
--- NOTE | 2018-03-15 12:23 | RAD REPORT ---
EXAM DESCRIPTION: CTAbdomen Pelvis W Contrast - 03/15/2018 12:09 pm CLINICAL HISTORY: Abdominal pain. ABD PAIN COMPARISON: Abdomen Pelvis Wo Contrast dated 03/07/2018; CT ABDOMEN PELVIS WO CONTRAST dated 01/17 TECHNIQUE: Biphasic CT imaging of the abdomen and pelvis was performed with 100 ml non-ionic IV cont rast. All CT scans are performed using dose optimization technique as appropriate and may include automated exposure control or mA/KV adjustment according to patient size. FINDINGS: Emphysematous and fibrotic changes are present in both lung bases.Moderate hiatal hernia i s present with slight thickening of the distal esophagus. The liver demonstrates small benign appearing cyst in the left lobe measuring 12 mm. No aggressive li danyel lesion or biliary dilatation. Small gallstones suspected. The spleen, pancreas and adrenal glands are normal. Bilateral renal cysts are present, benign in appearance, largest measuring 4 cm involvin g the superior anterior right kidney. No bowel obstruction, free air, free fluid or abscess. A large amount of stool is present throughout the colon. Colonic diverticulosis is also noted in the descending and sigmoid colon. The appendix is not identified as a discrete structure, however, no secondary findings of appendicitis are identified . No evidence of significant lymphadenopathy. Right inguinal hernia is present containing a small amount of fluid as well as a loop of the small in testine without obstruction. Left inguinal hernia is present containing a small amount fat. Moderate lumbosacral degenerative changes are present. Moderate degenerative changes are present in both hips. IMPRESSION: Marked fecal retention in the colon is seen. Right inguinal hernia is present containing fluid and nonobstructed small bowel. Diverticulosis coli without diverticulitis. Prominent emphysematous changes and fibrotic changes lung bases. Cholelithiasis.
--- NOTE | 2018-03-15 13:00 | ER ---
Nurse's Notes [facility] Name: Sushant Garrett Age: 87 yrs Sex: Male : 1930 Arrival Date: 03/15/2018 Time: 09:28 Bed 8 Private MD: Diagnosis: Constipation, unspecified Presentation: 03/15 09:22 Presenting complaint: EMS states: pt c/o diffuse abd pain, pt was on toilet having a sv large semi-loose stool, last BM was 3 days ago. Pt was recently taken off of his lung cancer meds last week and it had caused him to have diarrhea for 4 yrs. Transition of care: patient was not received from another setting of care. Onset of symptoms was March 15, 2018. Risk Assessment: Do you want to hurt yourself or someone else? Patient reports no desire to harm self or others. Initial Sepsis Screen: Does the patient meet any 2 criteria? No. Patient's initial sepsis screen is negative. Does the patient have a suspected source of infection? No. Patient's initial sepsis screen is negative. Care prior to arrival: None. 09:22 Method Of Arrival: EMS sv 09:22 Acuity: MIKE 3 sv Triage Assessment: 09:38 General: Appears in no apparent distress. comfortable, Behavior is calm, cooperative, sv appropriate for age. Pain: Denies pain. Neuro: Level of Consciousness is awake, alert, obeys commands, Oriented to person, place, time, situation, Moves all extremities. Respiratory: Respiratory effort is even, unlabored, Respiratory pattern is regular, symmetrical. GI: Abdomen is round Stools are reported to be loose, Abd is soft and non tender X 4 quads. Derm: Skin is normal. Historical: - Allergies: 09:37 No Known Allergies; sv - Home Meds: 09:37 Cipro Oral [Active]; levothyroxine oral [Active]; Flagyl Oral [Active]; Fish Oil oral sv oral [Active]; cranberry oral oral [Active]; B12 [Active]; pramipoxole [Active]; Ferrous Sulfate Oral [Active]; Protonix Oral [Active]; - PMHx: 09:37 Cancer, Lung; sv - PSHx: 09:37 lung biopsy; sv - Immunization history:: Adult Immunizations up to date. - Social history:: Smoking status: Patient/guardian denies using tobacco. - Ebola Screening: : No symptoms or risks identified at this time. - Family history:: not pertinent. - Hospitalizations: : No recent hospitalization is reported. Screenin:37 Abuse screen: Denies threats or abuse. Denies injuries from another. Nutritional sv screening: No deficits noted. Tuberculosis screening: No symptoms or risk factors identified. Fall Risk None identified. Assessment: 09:49 Reassessment: Patient appears in no apparent distress at this time. No changes from sv previously documented assessment. Patient and/or family updated on plan of care and expected duration. Pain level reassessed. Patient is alert, oriented x 3, equal unlabored respirations, skin warm/dry/pink. 09:53 Reassessment: Pt completed PO contrast, CT notified. ph 10:31 Reassessment: Patient appears in no apparent distress at this time. No changes from sv previously documented assessment. Patient and/or family updated on plan of care and expected duration. Pain level reassessed. Patient is alert, oriented x 3, equal unlabored respirations, skin warm/dry/pink. 11:30 Reassessment: Patient appears in no apparent distress at this time. No changes from sv previously documented assessment. Patient and/or family updated on plan of care and expected duration. Pain level reassessed. Patient is alert, oriented x 3, equal unlabored respirations, skin warm/dry/pink. 12:55 Reassessment: IVF changed to 500 ml bolus. sv 13:37 Reassessment: Patient appears in no apparent distress at this time. Patient and/or iw family updated on plan of care and expected duration. Pain level reassessed. Patient is alert, oriented x 3, equal unlabored respirations, skin warm/dry/pink. IV infusion complete, pt assisted to wheelchair, discharged to home, with family, assisted to vehicle Patient states symptoms have improved. GI: Bowel sounds. Vital Signs: 09:33 BP 127 / 62; Pulse 97; Resp 16; Temp 98.3; Pulse Ox 99% ; Pain 0/10; sv 10:44 BP 112 / 64; Pulse 84; Resp 16; Pulse Ox 99% ; sv 11:58 BP 107 / 62; Pulse 82; Resp 16; Pulse Ox 100% ; jb1 ED Course: 09:28 Patient arrived in ED. ph 09:30 Aaron Baez MD is Attending Physician. rn 09:30 Lindsey Prater, VANITA is Primary Nurse. sv 09:32 Triage completed. sv 09:37 Arm band placed on. sv 09:37 Patient has correct armband on for positive identification. Placed in gown. Bed in low sv position. Side rails up X2. Pulse ox on. NIBP on. Door closed. Warm blanket given. Head of bed elevated. 09:48 Initial lab(s) drawn, by me, sent to lab. Inserted saline lock: 22 gauge in right jb1 antecubital area, using aseptic technique. Blood collected. 09:54 Oral contrast given. vr 10:[address] Scan. sv 12:09 Abdomen In Process Unspecified. EDMS 13:39 No provider procedures requiring assistance completed. IV discontinued, intact, iw bleeding controlled, No redness/swelling at site. Pressure dressing applied. Administered Medications: 09:49 Drug: NS 0.9% 500 ml Route: IV; Rate: bolus; Site: right antecubital; sv 10:31 Follow up: Response: No adverse reaction; IV Status: Completed infusion; IV Intake: sv 500ml 10:31 Drug: NS 0.9% 250 ml Route: IV; Rate: 1 bolus; Site: right antecubital; sv 10:50 Follow up: Response: No adverse reaction; IV Status: Completed infusion; IV Intake: sv 250ml 12:05 Drug: NS 0.9% 1000 ml Route: IV; Rate: 200 ml/hr; Site: right antecubital; sv 13:38 Follow up: Response: No adverse reaction; IV Status: Completed infusion; IV Intake: sv 500ml Intake: 09:52 PO: 500ml (Contrast); Total: 500ml. sv 10:31 IV: 500ml; Total: 1000ml. sv 10:50 IV: 250ml; Total: 1250ml. sv 13:38 IV: 500ml; Total: 1750ml. sv 09:52 CT informed pt finished contrast. sv Outcome: 12:59 Discharge ordered by . rn 13:38 Discharged to home via wheelchair, with family. iw 13:38 Condition: good 13:38 Discharge instructions given to patient, family, Instructed on discharge instructions, follow up and referral plans. Demonstrated understanding of instructions, follow-up care. 13:39 Patient left the ED. iw Signatures: Dispatcher [employer] EDMS Efraín Shannon jb1 Lindsey Prater, RN RN Yokasta Aggarwal RN RN iw Aaron Baez MD MD rn Davis, Victoria vr Hall, Patricia, RN RN ph
--- NOTE | 2018-03-15 13:00 | EDPHYS ---
Physician Documentation [facility] Name: Sushant Garrett Age: 87 yrs Sex: Male : 1930 Arrival Date: 03/15/2018 Time: 09:28 Bed 8 Private MD: ED Physician Aaron Baez HPI: 03/15 12:49 This 87 yrs old Male presents to ER via EMS with complaints of Abdominal Pain.rn 12:49 The patient presents with. Onset: The symptoms/episode began/occurred today. Associated rn signs and symptoms: Pertinent positives: constipation, Pertinent negatives: diarrhea, dysuria, fever. The symptoms are described as achy. Modifying factors: The symptoms are alleviated by nothing, the symptoms are aggravated by nothing. Severity of pain: At its worst the pain was moderate in the emergency department the pain has improved. The patient has experienced similar episodes in the past. Reports recently stopped his cancer medication that gave him chronic diarrhea, reports constipation, had abd pain today, improved after having large bowel movement, no vomiting, no fever. . Historical: - Allergies: 09:37 No Known Allergies; sv - Home Meds: 09:37 Cipro Oral [Active]; levothyroxine oral [Active]; Flagyl Oral [Active]; Fish Oil oral sv oral [Active]; cranberry oral oral [Active]; B12 [Active]; pramipoxole [Active]; Ferrous Sulfate Oral [Active]; Protonix Oral [Active]; - PMHx: 09:37 Cancer, Lung; sv - PSHx: 09:37 lung biopsy; sv - Immunization history:: Adult Immunizations up to date. - Social history:: Smoking status: Patient/guardian denies using tobacco. - Ebola Screening: : No symptoms or risks identified at this time. - Family history:: not pertinent. - Hospitalizations: : No recent hospitalization is reported. ROS: 12:49 Constitutional: Negative for fever, chills, and weight loss, Eyes: Negative for injury, rn pain, redness, and discharge, Cardiovascular: Negative for chest pain, palpitations, and edema, Respiratory: Negative for shortness of breath, cough, wheezing, and pleuritic chest pain, Abdomen/GI: + abd pain with constipation MS/Extremity: Negative for injury and deformity, Skin: Negative for injury, rash, and discoloration, Neuro: Negative for headache, weakness, numbness, tingling, and seizure. Exam: 12:49 Constitutional: This is a well developed, well nourished patient who is awake, alert, rn and in no acute distress. Head/Face: Normocephalic, atraumatic. Eyes: Pupils equal round and reactive to light, extra-ocular motions intact. Lids and lashes normal. Conjunctiva and sclera are non-icteric and not injected. Cornea within normal limits. Periorbital areas with no swelling, redness, or edema. ENT: dry MM Cardiovascular: Regular rate and rhythm with a normal S1 and S2. No gallops, murmurs, or rubs. Normal PMI, no JVD. No pulse deficits. Respiratory: Lungs have equal breath sounds bilaterally, clear to auscultation and percussion. No rales, rhonchi or wheezes noted. No increased work of breathing, no retractions or nasal flaring. Abdomen/GI: soft, non-tender, non-distended MS/ Extremity: Pulses equal, no cyanosis. Neurovascular intact. Full, normal range of motion. Equal circumference. Neuro: Awake and alert, GCS 15, oriented to person, place, time, and situation. Cranial nerves II-XII grossly intact. Motor strength 5/5 in all extremities. Sensory grossly intact. Vital Signs: 09:33 BP 127 / 62; Pulse 97; Resp 16; Temp 98.3; Pulse Ox 99% ; Pain 0/10; sv 10:44 BP 112 / 64; Pulse 84; Resp 16; Pulse Ox 99% ; sv 11:58 BP 107 / 62; Pulse 82; Resp 16; Pulse Ox 100% ; jb1 MDM: 09:30 Patient medically screened. rn 11:30 ED course: Pt taken to CT scan, CT abdomen/pelvis initally ordered with contrast, rn creatinine high, drank contrast so only oral contrast CT planned to be performed, facilities maintenance technician accidentally looked at another person's labs, and performed CT with IV contrast and oral, notified me immediately, will monitor and hydrate. . 12:49 Differential diagnosis: diverticulitis, non-specific abd pain, constipation, fecal rn impaction, dehydration. Data reviewed: vital signs, nurses notes, lab test result(s), radiologic studies, CT scan, and as a result, I will discharge patient. Counseling: I had a detailed discussion with the patient and/or guardian regarding: the historical points, exam findings, and any diagnostic results supporting the discharge/admit diagnosis, lab results, radiology results, the need for outpatient follow up, to return to the emergency department if symptoms worsen or persist or if there are any questions or concerns that arise at home. Special discussion: I discussed with the patient/guardian in detail that at this point there is no indication for admission to the hospital. It is understood, however, that if the symptoms persist or worsen the patient needs to return immediately for re-evaluation. ED course: Pt improved, no abd pain, no acute findings on ct scan other than constipation, recommended outpt f/u with good bowel regimen and hydration, also needs repeat outpt creatinine given accidental contrast study.. 03/15 09:32 Order name: Basic Metabolic Panel; Complete Time: 10:17 rn 03/15 09:32 Order name: CBC with Diff; Complete Time: 10: rn 03/15 09:32 Order name: Hepatic Function; Complete Time: 10: rn 03/15 09:32 Order name: Lipase; Complete Time: 10: rn 03/15 09:32 Order name: IV Saline Lock; Complete Time: 09:49 rn 03/15 09:32 Order name: Labs collected and sent; Complete Time: 09:49 rn 03/15 12:05 Order name: Abdomen ; Complete Time: 12:32 EDMS Administered Medications: 09:49 Drug: NS 0.9% 500 ml Route: IV; Rate: bolus; Site: right antecubital; sv 10:31 Follow up: Response: No adverse reaction; IV Status: Completed infusion; IV Intake: sv 500ml 10:31 Drug: NS 0.9% 250 ml Route: IV; Rate: 1 bolus; Site: right antecubital; sv 10:50 Follow up: Response: No adverse reaction; IV Status: Completed infusion; IV Intake: sv 250ml 12:05 Drug: NS 0.9% 1000 ml Route: IV; Rate: 200 ml/hr; Site: right antecubital; sv 13:38 Follow up: Response: No adverse reaction; IV Status: Completed infusion; IV Intake: sv 500ml Disposition: 03/15/18 12:59 Discharged to Home. Impression: Constipation, unspecified. - Condition is Stable. - Discharge Instructions: Constipation, Adult. - Medication Reconciliation Form, Thank You Letter, Antibiotic Education, Prescription Opioid Use form. - Follow up: Private Physician; When: As needed; Reason: Recheck today's complaints, Re-evaluation by your physician. - Problem is new. - Symptoms have improved. Signatures: Dispatcher [employer] EDIA Lindsey Prater RN RN sv Yokasta Travis RN RN iw Aaron Baez MD MD overnight caregiver: (The following items were deleted from the chart) 12:05 11:30 Abdomen Pelvis Wo Con+CT.RAD.BRZ ordered. EDIA EDIA 12:18 09:33 Abdomen Pelvis W Con+CT.RAD.BRZ ordered. [facility] EDIA 13:39 12:59 03/15/2018 12:59 Discharged to Home. Impression: Constipation, unspecified. iw Condition is Stable. Forms are Medication Reconciliation Form, Thank You Letter, Antibiotic Education, Prescription Opioid Use. Follow up: Private Physician; When: As needed; Reason: Recheck today's complaints, Re-evaluation by your physician. Problem is new. Symptoms have improved. rn
[2018-03-15 13:46] VITALS: TEMP 98.3
[2018-03-15 13:48] VITALS: BP 107/62; O2SAT 100
== END 2018-03-15 13:39 | disposition home or self-care (01) ==
LOC: ER 09:26
DX: K59.00 Constipation, unspecified (principal); Z85.118 Personal history of other malignant neoplasm of bronchus and lung
CPT/HCPCS: 36415; 74177; 80048; 80076; 83690; 85025; 96361; 96365; 99284; J7030; Q9967

== ENCOUNTER 2018-03-21 14:30 | Inpatient (IN) | payer OTHER ==
[2018-03-21] MEDS ORDERED: ACETAMINOPHEN 500 MG TAB ONE ×2 (15:11→22:01)
[2018-03-21] MEDS ORDERED: NA CHLORIDE 0.9% 2,000 ML ONE (15:18)
[2018-03-21 15:26] LABS: Absolute Lymphocytes (CBC) 0.2 K/uL (0.7-4.9); Absolute Monocytes 0.3 K/uL (0.1-1.3); Absolute Neutrophil 15.9 K/uL (1.8-8.0); Basophils % 0.2 % (0-1.3); Eosinophils % 0.1 % (0-4.4); Lymphocytes % 1.2 % (15.3-44.8); MPV 7.6 fL (7.6-11.3); RBC Red Blood Cell Count 3.06 M/uL (4.33-5.43)
[2018-03-21 15:27] LABS: Protime INR 1.25
--- NOTE | 2018-03-21 15:28 | RAD REPORT ---
EXAM DESCRIPTION: RAD - Chest Single View - 03/21/2018 3:22 pm CLINICAL HISTORY: FEVER Chest pain. COMPARISON: Chest Single View dated 03/07/2018; CHEST SINGLE VIEW dated 01/17/2014; CHEST SINGLE VIE W dated 08/08/2012 FINDINGS: Portable technique limits examination quality. Bilateral patchy pulmonary opacities are noted, greatest in the lung bases, most likely representing bilateral pneumonia. The heart is mildly enlarged in size. Small pleural effusions versus pleural thi ckening suspected.
[2018-03-21 15:44] LABS: ALT/SGPT 32 U/L (12-78); AST/SGOT 54 U/L (15-37); Albumin 2.1 g/dL (3.4-5.0); Alkaline Phosphatase 68 U/L (45-117); BUN Blood Urea Nitrogen 28 mg/dL (7-18); Bicarbonate 23 mmol/L (21-32); Bilirubin Direct < 0.1 mg/dL (0-0.2); Bilirubin Total 0.3 mg/dL (0.2-1.0); CKMB Creatine Kinase MB 5.7 ng/mL (0.3-3.6); Glucose Level 112 mg/dL (74-106); Lipase 106 U/L (73-393); Potassium 4.2 mmol/L (3.5-5.1); Protein, Total 6.2 g/dL (6.4-8.2); Sodium Level 134 mmol/L (136-145); Troponin (Emerg Dept Use Only) 0.36 ng/mL (0.0-0.045)
[2018-03-21 15:49] LABS: Creatine Phosphokinase 1744 U/L (39-308)
[2018-03-21] MEDS ORDERED: AZITHROMYCIN 500 MG/250 ML BAG ONE (15:53)
[2018-03-21] MEDS ORDERED: CEFTRIAXONE/SWI 1gm 1 GM/10 ML SYR ONE (15:53)
[2018-03-21 15:58] LABS: Blood Morphology Comment NOTED (NOT SEEN); Burr Cells 1+; Platelet Estimate INCR; Urine White Blood Cell Casts OK
[2018-03-21 16:35] LABS: Urine Blood 2+ (NEG); Urine Glucose NEGATIVE (NEG); Urine Protein 2+ (NEG); Urine Specific Gravity 1.015 (1.005-1.030)
[2018-03-21 16:35] LABS: Urine Bacteria <20 /HPF (NONE SEEN); Urine Culture Reflex Order REFLEXED; Urine Mucus 1+ /HPF (NONE SEEN)
[2018-03-21] MEDS ORDERED: NA CHLORIDE 0.9% 1,000 ML ONE (17:05)
--- NOTE | 2018-03-21 17:08 | RAD REPORT ---
EXAM DESCRIPTION: USExtrem Venous W Compress Bil03/21/2018 4:55 pm CLINICAL HISTORY: Bilateral leg swelling COMPARISON: none FINDINGS: The common femoral, superficial femoral, popliteal and posterior tibial veins bilaterally are compressible and demonstrate augmentation. Doppler demonstrates good flow. A 3.9 x 0.8 x 2 centimeter right Amrtinez's cyst A 3.7 x 1.2 x 1.6 centimeter left Martinez's cyst IMPRESSION: No evidence of deep venous thrombosis involving either lower extremity. Bilateral Martinez's cysts
--- NOTE | 2018-03-21 17:26 | ER ---
Nurse's Notes [facility] Name: Sushant Garrett Age: 87 yrs Sex: Male : 1930 Arrival Date: 03/21/2018 Time: 14:33 Bed 6 Private MD: Diagnosis: Sepsis, unspecified organism;Pneumonia, unspecified organism;Urinary tract infection, site not specified Presentation: 03/21 14:42 Presenting complaint: EMS states: from home, with complaints of fever starting today, hj T- 101.6; BP- 124/70; HR- 120; HR- 30; BGL- 147; per report, was diagnosed with UTI; reports pitting edema bilateral legs; 18g L AC; NS- 400 cc; A\T\) x4;. Transition of care: patient was not received from another setting of care. Onset of symptoms was March 21, 2018. Risk Assessment: Do you want to hurt yourself or someone else? Patient reports no desire to harm self or others. Initial Sepsis Screen: Does the patient meet any 2 criteria? RR > 20 per min. Temp <36.0*C (96.8*F)) or > 38.3*C (100.9*F). Systolic BP < 90 mmHg. HR > 90 bpm. Yes Does the patient have a suspected source of infection? Yes: Dysuria/Frequency/Urgency/UTI. Care prior to arrival: Medication(s) given: Normal saline infusion, IV initiated. 18 GA, in the left antecubital area, Glucose check: 147. 14:42 Method Of Arrival: EMS: [facility] 14:42 Acuity: MIKE 3 hj Triage Assessment: 14:49 General: Appears in no apparent distress. uncomfortable, Behavior is calm, cooperative, hj appropriate for age. Pain: Denies pain. EENT: No signs and/or symptoms were reported regarding the EENT system. Neuro: Level of Consciousness is awake, alert, obeys commands, Oriented to person, place, time, situation, Appropriate for age. Cardiovascular: Capillary refill < 3 seconds Patient's skin is warm and dry. Respiratory: Airway is patent Respiratory effort is even, unlabored, Respiratory pattern is regular, symmetrical. GI: No signs and/or symptoms were reported involving the gastrointestinal system. : No signs and/or symptoms were reported regarding the genitourinary system. Derm: Musculoskeletal: No signs and/or symptoms reported regarding the musculoskeletal system. Historical: - Allergies: 14:49 No Known Allergies; hj - Home Meds: 15:15 Cipro Oral [Active]; levothyroxine 150 mcg tab 1 tab once daily [Active]; metronidazole hj 500 mg Oral tab 1 tab every 6 hours [Active]; Fish Oil 1,000 mg oral cap daily [Active]; pramipexole 1.5 mg oral Tb24 1 tab once daily [Active]; pantoprazole 40 mg oral TbEC 1 tab once daily [Active]; furosemide 40 mg Oral tab 1 tab once daily [Active]; sulfamethoxazole-trimethoprim 800-160 mg Oral tab 1 tab every 12 hours [Active]; - PMHx: 14:49 Cancer, Lung; hj - PSHx: 14:49 lung biopsy; hj - Immunization history:: Adult Immunizations up to date. - Social history:: Smoking status: Patient/guardian denies using tobacco, Patient/guardian denies using alcohol. - Ebola Screening: : Patient negative for fever greater than or equal to 101.5 degrees Fahrenheit, and additional compatible Ebola Virus Disease symptoms Patient denies exposure to infectious person Patient denies travel to an Ebola-affected area in the 21 days before illness onset. Screenin:49 Abuse screen: Denies threats or abuse. Denies injuries from another. Nutritional hj screening: No deficits noted. Tuberculosis screening: No symptoms or risk factors identified. Fall Risk None identified. Assessment: 14:49 General: Appears in no apparent distress. uncomfortable, Behavior is calm, cooperative, hj appropriate for age. Pain: Denies pain. Neuro: Level of Consciousness is awake, alert, obeys commands, Oriented to person, place, time, situation, Appropriate for age. Cardiovascular: Capillary refill < 3 seconds Patient's skin is warm and dry. Respiratory: Airway is patent Respiratory effort is even, unlabored, Respiratory pattern is regular, symmetrical. GI: No signs and/or symptoms were reported involving the gastrointestinal system. : Reports diagnosed with UTI yesterday from PCP and Rx with sulfs drugs. EENT: No signs and/or symptoms were reported regarding the EENT system. Derm: No signs and/or symptoms reported regarding the dermatologic system. Musculoskeletal: No signs and/or symptoms reported regarding the musculoskeletal system. 15:00 Reassessment: Patient and/or family updated on plan of care and expected duration. Pain hj level reassessed. Patient is alert, oriented x 3, equal unlabored respirations, skin warm/dry/pink. asymptomatic;. 15:30 Reassessment: Patient and/or family updated on plan of care and expected duration. Pain hj level reassessed. Patient is alert, oriented x 3, equal unlabored respirations, skin warm/dry/pink. awaiting results and POC;. 16:00 Reassessment: Patient and/or family updated on plan of care and expected duration. Pain hj level reassessed. Patient is alert, oriented x 3, equal unlabored respirations, skin warm/dry/pink. US neg for DVT:. 16:30 Reassessment: Patient and/or family updated on plan of care and expected duration. Pain hj level reassessed. Patient is alert, oriented x 3, equal unlabored respirations, skin warm/dry/pink. provider aware on BP trends;. 16:45 Reassessment: Patient and/or family updated on plan of care and expected duration. Pain hj level reassessed. Patient is alert, oriented x 3, equal unlabored respirations, skin warm/dry/pink. provider in room with ER MD for POC and possible central line placement for pressures;. 17:00 Reassessment: Patient and/or family updated on plan of care and expected duration. Pain hj level reassessed. Patient is alert, oriented x 3, equal unlabored respirations, skin warm/dry/pink. family updated on POC;l. 17:16 Reassessment: MD aware on hypotensive pressures; for central line placement;. hj 18:00 Reassessment: Patient and/or family updated on plan of care and expected duration. Pain hj level reassessed. Patient is alert, oriented x 3, equal unlabored respirations, skin warm/dry/pink. started on Levophed at 5 mcg;. 18:23 Reassessment: Patient and/or family updated on plan of care and expected duration. Pain hj level reassessed. Patient is alert, oriented x 3, equal unlabored respirations, skin warm/dry/pink. BP monitored; Patient states feeling better. Patient states symptoms have improved. 20:00 Reassessment: Patient appears in no apparent distress at this time. No changes from jd3 previously documented assessment. Patient and/or family updated on plan of care and expected duration. Pain level reassessed. Patient is alert, oriented x 3, equal unlabored respirations, skin warm/dry/pink. Vital Signs: 14:46 BP 95 / 35; Pulse 116; Resp 18; Temp 101.5(O); Pulse Ox 93% on R/A; Weight 63.5 kg; hj Height 5 ft. 7 in. (170.18 cm); Pain 0/10; 14:47 Pulse Ox 100% on 2 lpm NC; hj 14:58 BP 100 / 55; Pulse 103; Resp 18; Temp 101.5(O); Pulse Ox 100% on 2 lpm NC; hj 15:11 BP 96 / 59; Pulse 108; Resp 18; Pulse Ox 99% on 2 lpm NC; hj 15:51 BP 84 / 51; Pulse 105; Resp 18; Pulse Ox 98% on 2 lpm NC; hj 16:26 BP 91 / 57; Pulse 89; Resp 18; Pulse Ox 100% on 2 lpm NC; hj 16:39 BP 83 / 45; Pulse 88; Resp 18; Pulse Ox 100% on 2 lpm NC; hj 17:15 BP 77 / 51; Pulse 83; Resp 18; Pulse Ox 99% 2 lpm ; hj 17:48 BP 85 / 56; Pulse 84; Resp 18 S; Pulse Ox 99% on 2 lpm NC; iw 18:00 BP 98 / 61; Pulse 88; Resp 18; Pulse Ox 99% on 2 lpm NC; hj 18:18 BP 105 / 61; Pulse 79; Resp 18; Pulse Ox 99% on R/A; hj 18:23 BP 102 / 58; Pulse 88; Resp 18; Temp 98.7(O); Pulse Ox 99% on 2 lpm NC; hj 19:59 BP 117 / 81; Pulse 101; Resp 22 S; Temp 99.5(O); Pulse Ox 97% on 2 lpm NC; jd3 14:46 Body Mass Index 21.93 (63.50 kg, 170.18 cm) hj 18:18 levophed at 5 mcg/min hj ED Course: 14:33 Patient arrived in ED. iw 14:42 Nelson Weir RN is Primary Nurse. hj 14:43 EKG done, by technical cable jointer. reviewed by Aaron Baez MD. at1 14:45 Triage completed. hj 14:50 Arm band placed on right wrist. hj 14:50 Patient has correct armband on for positive identification. Placed in gown. Bed in low hj position. Call light in reach. Side rails up X 1. Adult w/ patient. 14:56 Initial lab(s) drawn, by me, sent to lab. First set of blood cultures drawn by me. dh3 Inserted saline lock: 20 gauge in right antecubital area, using aseptic technique. Blood collected. 15:04 Allen Lagunas NP is PHCP. pm1 15:04 Aaron Baez MD is Attending Physician. pm1 15:17 Second set of blood cultures drawn by me, by venipuncture 23G to right hand. dh3 15:21 X-ray completed. Portable x-ray completed in exam room. Patient tolerated procedure ml well. 15:23 Chest Single View XRAY In Process Unspecified. EDMS 15:46 Flu and/or RSV swab sent to lab. dh3 16:55 Extrem Venous W Compression Marco Antonio US In Process Unspecified. EDMS 17:24 Kierra Whelan MD is Hospitalizing Provider. pm1 17:40 Assisted provider with central line placement. Set up central line tray. Triple lumen iw line placed in right femoral. Line placed by Aaron Baez MD Dressed with Tape, Tegaderm, Patient tolerated well. Before procedure, did Practitioner(s) obtain informed consent? Yes. Patient \T\ family education about procedure, CLABSI prevention and S/S of infection? Yes. Time-out/Briefing performed prior to start of procedure? Yes. Was handwashing/sanitizing done immediately prior to procedure? Yes. Was patient positioned to in a way to prevent air embolism? Yes. Was procedure site sterilized? Yes, with chlorhexidine. Was the site allowed to dry? Yes. Was local anesthetic and/or sedation utilized? Yes. During the procedure, did the Practitioner(s) maintain a sterile field? Yes. Were unused ports clamped during insertion? Yes. Was a 2nd qualified MD obtained after 3 unsuccessful insertion attempts? No. Was blood aspirated from each lumen? Yes. After the procedure, did the Practitioner(s) clean the site and apply a sterile dressing? Yes. 19:00 Report given to VANITA Damon. hj 20:45 Patient admitted, IV remains in place. jd3 Administered Medications: 15:00 Drug: Tylenol 1000 mg Route: PO; hj 16:39 Follow up: Response: No adverse reaction; Temperature is decreased hj 15:01 Drug: NS 0.9% (30 ml/kg) 30 ml/kg Route: IV; Rate: bolus; Site: left antecubital; hj 15:41 Drug: Zithromax 500 mg Route: IVPB; Infused Over: 1 hrs; Site: right antecubital; hj 18:59 Follow up: IV Status: Completed infusion hj 15:42 Drug: Rocephin 1 grams Route: IV; Rate: calculated rate; Site: left antecubital; hj 18:15 Follow up: IV Status: Completed infusion hj 16:38 Drug: NS 0.9% (30 ml/kg) 30 ml/kg Route: IV; Rate: bolus; Site: right antecubital; hj 18:14 Follow up: IV Status: Completed infusion hj 16:54 Drug: NS 0.9% 1000 ml Route: IV; Rate: 100 ml/hr; Site: right antecubital; hj 18:15 Follow up: IV Status: Infusion continued hj 17:48 Drug: Levophed (4 mg/250 mL D5W 4 mcg/min Route: IV; Rate: calculated rate; Site: right iw femoral; 18:16 Follow up: IV Status: Infusion continued Point of Care Testing: Blood Glucose: 15:21 Blood Glucose: 116 mg/dL; hj Ranges: Outcome: 17:25 Decision to Hospitalize by Provider. pm1 20:44 Admitted to Tele accompanied by nurse, via stretcher, room 1, with oxygen, on monitor, mollyd3 with chart, Report called to Glen WALDRON 20:44 Condition: stable 20:44 Instructed on the need for admit, Demonstrated understanding of instructions. 21:00 Patient left the ED. rv Signatures: Dispatcher [employer] EDMS Yokasta Travis RN RN iw Lopez, Melissa ml Gonzales, Amanda, handwriting expert EKG Tat1 Nelson Weir RN RN hj Marinas, Patrick, LPTA LPTA pm1 Hina Jensen 3 Jaydon Garcia RN RN jd3 Vicente, Ronaldo, RN RN rv Corrections: (The following items were deleted from the chart) 14:59 14:46 BP 95 / 35; Pulse 116bpm; Resp 18bpm; Pulse Ox 93% RA; Temp 98.0F Oral; 89.81 kg; Height 5 ft. 7 in.; BMI: 31.0; Pain 0/10; hj 15:11 14:46 BP 95 / 35; Pulse 116bpm; Resp 18bpm; Pulse Ox 93% RA; Temp 101.5F Oral; 89.81 hj kg; Height 5 ft. 7 in.; BMI: 31.0; Pain 0/10; 18:25 18:23 BP 102 / 58; Pulse 88bpm; Resp 18bpm; Pulse Ox 99% 2 lpm Nasal Cannula; [facility]
--- NOTE | 2018-03-21 17:26 | EDPHYS ---
Physician Documentation [facility] Name: Sushant Garrett Age: 87 yrs Sex: Male : 1930 Arrival Date: 03/21/2018 Time: 14:33 Bed 6 Private MD: ED Physician Aaron Baez HPI: 03/21 16:04 This 87 yrs old Male presents to ER via EMS with complaints of Fever. pm1 16:04 The patient reports fever, that was measured at 101.6 degrees Fahrenheit. Onset: The pm1 symptoms/episode began/occurred today. Modifying factors: Recent medications: Other Diagnosed with UTI yesterday by PCP and started on Bactrim, has taken two doses of abx. Currently also taking cipro for lower extremity skin infection as a result of reaction to chemo therapy. Associated signs and symptoms: Pertinent positives: cough, Urinary frequency, Has had some constipation since last night. Normal BM last night, Pertinent negatives: chest pain, nausea, shortness of breath, vomiting. Severity of symptoms: Pain is currently a 0 / 10. The patient has been recently seen by a physician: the patient's primary care provider, yesterday, diagnosed with UTI and prescribed Bactrim. Patient was seen here on March 15 and was diagnosed with constipation. Has had constipation until last night with a normal bowel movement. Has had urinary frequency for the past few days and was seen by his PCP yesterday. Diagnosed with UTI and prescribed bactrim. Today, onset of fever, tmax 101.6. Reports a dry cough. No chest pain or shortness of breath. 16:04 3 weeks ago he was active and moving around but since chemotherapy has been sedentary. pm1 Historical: - Allergies: 14:49 No Known Allergies; hj - Home Meds: 15:15 Cipro Oral [Active]; levothyroxine 150 mcg tab 1 tab once daily [Active]; metronidazole hj 500 mg Oral tab 1 tab every 6 hours [Active]; Fish Oil 1,000 mg oral cap daily [Active]; pramipexole 1.5 mg oral Tb24 1 tab once daily [Active]; pantoprazole 40 mg oral TbEC 1 tab once daily [Active]; furosemide 40 mg Oral tab 1 tab once daily [Active]; sulfamethoxazole-trimethoprim 800-160 mg Oral tab 1 tab every 12 hours [Active]; - PMHx: 14:49 Cancer, Lung; hj - PSHx: 14:49 lung biopsy; hj - Immunization history:: Adult Immunizations up to date. - Social history:: Smoking status: Patient/guardian denies using tobacco, Patient/guardian denies using alcohol. - Ebola Screening: : Patient negative for fever greater than or equal to 101.5 degrees Fahrenheit, and additional compatible Ebola Virus Disease symptoms Patient denies exposure to infectious person Patient denies travel to an Ebola-affected area in the 21 days before illness onset. ROS: 16:04 MS/Extremity: Negative for injury and deformity. pm1 16:04 Neuro: Negative for headache, weakness, numbness, tingling, and seizure. 16:04 Eyes: Negative for injury, pain, redness, and discharge, ENT: Negative for injury, pain, and discharge, Neck: Negative for injury, pain, and swelling, Cardiovascular: Negative for chest pain, palpitations Abdomen/GI: Negative for abdominal pain, nausea, vomiting, diarrhea, and constipation, Back: Negative for injury and pain. 16:04 Constitutional: Positive for fever, Negative for body aches, poor PO intake. 16:04 Respiratory: Positive for cough, Negative for shortness of breath, sputum production, wheezing. 16:04 : Positive for urinary frequency, Negative for burning with urination, testicular pain 16:04 Skin: Positive for cellulitis, of the right and left lower extremity. 16:16 Cardiovascular: Positive for edema, bilateral lower extremities for the past two weeks. pm1 Exam: 16:16 Constitutional: This is a well developed, well nourished patient who is awake, alert, pm1 and in no acute distress. Head/Face: Normocephalic, atraumatic. Eyes: Pupils equal round and reactive to light, extra-ocular motions intact. Lids and lashes normal. Conjunctiva and sclera are non-icteric and not injected. Cornea within normal limits. Periorbital areas with no swelling, redness, or edema. ENT: Nares patent. No nasal discharge, no septal abnormalities noted. Tympanic membranes are normal and external auditory canals are clear. Oropharynx with no redness, swelling, or masses, exudates, or evidence of obstruction, uvula midline. Mucous membranes moist. Neck: Trachea midline, no thyromegaly or masses palpated, and no cervical lymphadenopathy. Supple, full range of motion without nuchal rigidity, or vertebral point tenderness. No Meningismus. Chest/axilla: Normal chest wall appearance and motion. Nontender with no deformity. No lesions are appreciated. 16:16 Abdomen/GI: Soft, non-tender, with normal bowel sounds. No distension or tympany. No guarding or rebound. No evidence of tenderness throughout. Back: No spinal tenderness. No costovertebral tenderness. Full range of motion. MS/ Extremity: Pulses equal, no cyanosis. Neurovascular intact. Full, normal range of motion. 16:16 Cardiovascular: Rate: normal, Rhythm: regular, Heart sounds: normal, Edema: pedal edema, that is moderate, bilateral extremities below knee. 16:16 Respiratory: the patient does not display signs of respiratory distress, Respirations: normal, Breath sounds: decreased breath sounds, are located in both bases. 16:16 Skin: Appearance: normal except for affected area, swelling, noted on the bilateral feet, below knees right leg and left leg. 16:16 Neuro: Orientation: is normal, Motor: is normal, moves all fours, Sensation: is normal, no obvious gross deficits. Vital Signs: 14:46 BP 95 / 35; Pulse 116; Resp 18; Temp 101.5(O); Pulse Ox 93% on R/A; Weight 63.5 kg; hj Height 5 ft. 7 in. (170.18 cm); Pain 0/10; 14:47 Pulse Ox 100% on 2 lpm NC; hj 14:58 BP 100 / 55; Pulse 103; Resp 18; Temp 101.5(O); Pulse Ox 100% on 2 lpm NC; hj 15:11 BP 96 / 59; Pulse 108; Resp 18; Pulse Ox 99% on 2 lpm NC; hj 15:51 BP 84 / 51; Pulse 105; Resp 18; Pulse Ox 98% on 2 lpm NC; hj 16:26 BP 91 / 57; Pulse 89; Resp 18; Pulse Ox 100% on 2 lpm NC; hj 16:39 BP 83 / 45; Pulse 88; Resp 18; Pulse Ox 100% on 2 lpm NC; hj 17:15 BP 77 / 51; Pulse 83; Resp 18; Pulse Ox 99% 2 lpm ; hj 17:48 BP 85 / 56; Pulse 84; Resp 18 S; Pulse Ox 99% on 2 lpm NC; iw 18:00 BP 98 / 61; Pulse 88; Resp 18; Pulse Ox 99% on 2 lpm NC; hj 18:18 BP 105 / 61; Pulse 79; Resp 18; Pulse Ox 99% on R/A; hj 18:23 BP 102 / 58; Pulse 88; Resp 18; Temp 98.7(O); Pulse Ox 99% on 2 lpm NC; hj 19:59 BP 117 / 81; Pulse 101; Resp 22 S; Temp 99.5(O); Pulse Ox 97% on 2 lpm NC; jd3 14:46 Body Mass Index 21.93 (63.50 kg, 170.18 cm) hj 18:18 levophed at 5 mcg/min hj Procedures: 17:35 Central Line: the site was prepped with Betadine, in sterile fashion, a triple lumen rn catheter was inserted, in the right femoral vein, in 1 attempts. placement was verified, by blood return, the site was dressed with Tegaderm, using sterile technique, the patient tolerated the procedure, well. MDM: 15:06 Patient medically screened. pm1 16:22 Data reviewed: vital signs. Data interpreted: Pulse oximetry: on room air is 98 %. pm1 Interpretation: normal. 16:55 Counseling: I had a detailed discussion with the patient and/or guardian regarding: the pm1 historical points, exam findings, and any diagnostic results supporting the discharge/admit diagnosis, lab results, radiology results, the need for further work-up and treatment in the hospital. 16:55 ED course: negative for DVT per U/S tech. pm1 17:38 Physician consultation: Kierra Whelan MD was called at 17:38, was contacted at 17:38, pm1 regarding admission, patient's condition, and will see patient. 03/21 15:01 Order name: Basic Metabolic Panel; Complete Time: 16:12 iw 03/21 15:01 Order name: Blood Culture Adult (2) iw 03/21 15:01 Order name: CBC with Diff; Complete Time: 16:12 iw 03/21 15:01 Order name: Ckmb; Complete Time: 16:12 iw 03/21 15:01 Order name: CPK; Complete Time: 16:12 iw 03/21 15:01 Order name: Lactate; Complete Time: 15:39 03/21 15:01 Order name: LFT's; Complete Time: 16:12 iw 03/21 15:01 Order name: Lipase; Complete Time: 16:12 iw 03/21 15:01 Order name: Procalcitonin; Complete Time: 16:12 iw 03/21 15:01 Order name: Protime (+inr); Complete Time: 15:35 iw 03/21 15:01 Order name: Ptt, Activated; Complete Time: 15:35 iw 03/21 15:01 Order name: Troponin (emerg Dept Use Only); Complete Time: 16:12 iw 03/21 15:01 Order name: Urine Microscopic Only; Complete Time: 16:48 iw 03/21 15:17 Order name: Urine Culture pm1 03/21 15:23 Order name: Glucose, Ancillary Testing; Complete Time: 15:24 EDMS 03/21 15:30 Order name: CBC Smear Scan; Complete Time: 16:12 EDMS 03/21 15:36 Order name: Flu; Complete Time: 16:16 pm1 03/21 16:20 Order name: Urine Dipstick--Ancillary (enter results); Complete Time: 16:48 03/21 16:39 Order name: Urine Culture EDNJ 03/21 17:49 Order name: C-Reactive Protein; Complete Time: 20:28 EDNJ 03/21 17:49 Order name: CBC with Automated Diff EDNJ 03/21 17:49 Order name: CBC with Automated Diff EDMS 03/21 17:49 Order name: CBC with Automated Diff EDMS 03/21 17:49 Order name: CBC with Automated Diff EDMS 03/21 17:49 Order name: Comprehensive Metabolic Panel [facility] 03/21 17:49 Order name: Comprehensive Metabolic Panel [facility] 03/21 17:49 Order name: Comprehensive Metabolic Panel [facility] 03/21 17:49 Order name: Comprehensive Metabolic Panel [facility] 03/21 17:49 Order name: Creatine Phosphokinase EDNJ 03/21 17:49 Order name: Creatine Phosphokinase EDNJ 03/21 15:01 Order name: Chest Single View XRAY; Complete Time: 15:35 iw 03/21 15:01 Order name: Accucheck; Complete Time: 15:20 iw 03/21 15:01 Order name: Cardiac monitoring; Complete Time: 15:06 iw 03/21 15:01 Order name: EKG - Nurse/Tech; Complete Time: 15:06 03/21 15:01 Order name: IV Saline Lock - Large Bore; Complete Time: 15:06 03/21 15:01 Order name: Labs collected and sent; Complete Time: 15:06 03/21 15:01 Order name: O2 Per Protocol; Complete Time: 15:06 03/21 15:01 Order name: O2 Sat Monitoring; Complete Time: 15:06 03/21 15:01 Order name: Urine Dipstick-Ancillary (obtain specimen); Complete Time: 16:38 03/21 16:16 Order name: Extrem Venous W Compression Marco Antonio US; Complete Time: 17:12 pm1 03/21 17:09 Order name: EKG Electrocardiogram EDNJ 03/21 17:49 Order name: CONS Pharmacy Consult EDNJ 03/21 17:49 Order name: Creatine Phosphokinase EDNJ 03/21 17:49 Order name: Lactate EDNJ 03/21 17:49 Order name: Lactate EDNJ 03/21 17:49 Order name: Troponin I [facility] 03/21 17:49 Order name: Troponin I; Complete Time: 20:17 EDNJ 03/21 17:49 Order name: Troponin I EDNJ 03/21 17:49 Order name: Sputum Culture EDNJ Administered Medications: 15:00 Drug: Tylenol 1000 mg Route: PO; hj 16:39 Follow up: Response: No adverse reaction; Temperature is decreased hj 15:01 Drug: NS 0.9% (30 ml/kg) 30 ml/kg Route: IV; Rate: bolus; Site: left antecubital; hj 15:41 Drug: Zithromax 500 mg Route: IVPB; Infused Over: 1 hrs; Site: right antecubital; hj 18:59 Follow up: IV Status: Completed infusion hj 15:42 Drug: Rocephin 1 grams Route: IV; Rate: calculated rate; Site: left antecubital; hj 18:15 Follow up: IV Status: Completed infusion hj 16:38 Drug: NS 0.9% (30 ml/kg) 30 ml/kg Route: IV; Rate: bolus; Site: right antecubital; hj 18:14 Follow up: IV Status: Completed infusion hj 16:54 Drug: NS 0.9% 1000 ml Route: IV; Rate: 100 ml/hr; Site: right antecubital; hj 18:15 Follow up: IV Status: Infusion continued 17:48 Drug: Levophed (4 mg/250 mL D5W 4 mcg/min Route: IV; Rate: calculated rate; Site: right iw femoral; 18:16 Follow up: IV Status: Infusion continued Point of Care Testing: Blood Glucose: 15:21 Blood Glucose: 116 mg/dL; Ranges: Critical Glucose Levels:Adult <50 mg/dl or >400 mg/dl <40 mg/dl or >180 mg/dl Disposition: 03/21/18 17:25 Hospitalization ordered by Kierra Whelan for Inpatient Admission. Preliminary diagnosis are Sepsis, unspecified organism, Pneumonia, unspecified organism, Urinary tract infection, site not specified. - Bed requested for Intensive Care Unit. - Status is Inpatient Admission. rv - Condition is Fair. - Problem is new. - Symptoms have improved. UTI on Admission? Yes Addendum: 03/27/2018 01:39 Co-signature as Attending Physician, Aaron Baez MD. r n Signatures: Dispatcher [employer] EDYokasta Roe RN RN iw Nieto, Roman, MD MD rn Joaquin, Henry, RN RN Allen Lagunas NP NURSE INTERN pm1 Sara Amaya RN RN df Hank Reyes RN RN rv Corrections: (The following items were deleted from the chart) 03/21 16:17 16:04 Eyes: Negative for injury, pain, redness, and discharge, ENT: Negative for pm1 injury, pain, and discharge, Neck: Negative for injury, pain, and swelling, Cardiovascular: Negative for chest pain, palpitations, and edema, Abdomen/GI: Negative for abdominal pain, nausea, vomiting, diarrhea, and constipation, Back: Negative for injury and pain, pm1 18:31 17:25 Hospitalization Ordered by Kierra Whelan MD for Inpatient Admission. Preliminary df diagnosis is Sepsis, unspecified organism; Pneumonia, unspecified organism; Urinary tract infection, site not specified. Bed requested for Intensive Care Unit. Status is Inpatient Admission. Condition is Fair. Problem is new. Symptoms have improved. UTI on Admission? Yes. pm1 21:00 18:31 03/21/2018 17:25 Hospitalization Ordered by Kierra Whelan MD for Inpatient rv Admission. Preliminary diagnosis is Sepsis, unspecified organism; Pneumonia, unspecified organism; Urinary tract infection, site not specified. Bed requested for Intensive Care Unit. Status is Inpatient Admission. Condition is Fair. Problem is new. Symptoms have improved. UTI on Admission? Yes. df
[2018-03-21] MEDS ORDERED: NOREPINEPHRINE 4mg/D5W 250mL 4 MG/250 ML BAG IV ONE (17:38)
[2018-03-21] MEDS ORDERED: NA CHLORIDE 0.9% 500 ML IV ONE (17:44)
[2018-03-21] MEDS ORDERED: CEFEPIME 1 GM in NA CHLORIDE 0.9% 100 ML IV SCH (18:00)
[2018-03-21] MEDS: CEFEPIME/SWI 1gm 1 GM/10 ML SYR IVP SCH (18:00)
[2018-03-21] MEDS ORDERED: VANCOMYCIN 1GM/D5W 1 GM/200 ML BAG IV SCH (21:00)
[2018-03-21] MEDS ORDERED: VANCOMYCIN/NS 1 gm 1 GM/250 ML BAG IV SCH (21:00)
--- NOTE | 2018-03-21 22:29 | P.HP ---
Certification for Inpatient With expected LOS: >2 Midnights Practitioner: I am a practitioner with admitting privileges, knowledge of patient current condition, hospital course, and medical plan of care. Services: Services provided to patient in accordance with Admission requirements found in Title 42 Section 412.3 of the Code of Federal Regulations Patient History Date of Service: 03/21/18 Reason for admission: sepsis History of Present Illness: Mr Garrett is an 87 years old male with history of NSCC of the lyng, COPD, former smoker, hypothyroidism, who start today with progressive SOB and cough. He has had fever as well. The patient is very hard hearing. At arrival the patient was hypotensive, febrile and tachycardic, O2 sat 90% on RA. Lab work remarkable for leukocytosis, normal lactate but elevated procalcitonin. Trop I was also elevated in context of acute on CKD. CXR remarkable for bilateral infiltrate consistent with pneumonia. Allergies No Known Allergies Allergy (Verified 08/08/12 18:11) Home medications list reviewed: Yes Home Medications: Levothyroxine [Synthroid*] 0.15 mg PO [id number] 08/09/12 Pramipexole Di-HCl [Mirapex] 1.5 mg PO NOON 08/09/12 Cranberry 4,200 mg PO TID 03/08/18 Cyanocobalamin (Vitamin B-12) [Vitamin B12] 1 tab PO DAILY 03/08/18 Erlotinib HCl [Tarceva] 1 tab PO DAILY 03/08/18 Fish Oil/Dha/Epa [Fish Oil 1,200 mg Fish Oil] 1,200 mg PO BID 03/08/18 Albuterol Sulfate [Proair Hfa] 2 puff IH TID PRN #1 hfa.[email or web address] 03/09/18 Budesonide/Formoterol Fumarate [Symbicort 160-4.5 Mcg Inhaler] 2 puff IH BID #1 hfa.aer.ad 03/09/18 Ciprofloxacin HCl [Cipro 250 MG Tablet*] 250 mg PO DAILY #7 tab 03/09/18 Ferrous Sulfate [Iron] 325 mg PO DAILY #90 tablet 03/09/18 Pantoprazole [Protonix Tab] 40 mg PO DAILY #30 tab 03/09/18 metroNIDAZOLE [Flagyl] 500 mg PO TID #21 tablet 03/09/18 - Past Medical/Surgical History Diabetic: No -: Non small-cell lung cancer -: Hypothyroidism -: Former tobacco use -: Restless leg syndrome -: Chronic diarrhea/nausea -: polyp removal -: blister on lip removed Psychosocial/ Personal History: The patient is a . He lives by himself. He has several children - Family History Family History: Reviewed- Non-Contributory - Social History Smoking Status: Former smoker Alcohol use: Yes CD- Drugs: No Caffeine use: Yes Place of Residence: Home Review of Systems 10-point ROS is otherwise unremarkable Physical Examination - Vital Signs Temperature: 99.5 F Blood Pressure: 117/81 Pulse: 101 Respirations: 22 - Physical Exam General: Alert, In no apparent distress HEENT: Atraumatic, PERRLA, Mucous membr. moist/pink, EOMI, Sclerae nonicteric Neck: Supple, 2+ carotid pulse no bruit, No LAD, Without JVD or thyroid abnormality Respiratory: Diminished, Crackles/rales (bibasilar crackles) Cardiovascular: Normal S1 S2, No gallops Gastrointestinal: Normal bowel sounds, No tenderness Musculoskeletal: No tenderness Integumentary: No rashes Neurological: Normal speech, Normal strength at 5/5 x4 extr, Normal tone, Normal affect Lymphatics: No axilla or inguinal lymphadenopathy - Studies Laboratory Data (last 24 hrs) 03/21/18 14:56: PT 14.8 H, INR 1.25, APTT 39.8 H 03/21/18 14:56: WBC 16.4 H D, Hgb 9.3 L, Hct 27.0 L, Plt Count 443 H D 03/21/18 14:56: Sodium 134 L, Potassium 4.2, BUN 28 H, Creatinine 2.30 H, Glucose 112 H, Total Bilirubin 0.3, AST 54 H, ALT 32, Alkaline Phosphatase 68, Lipase 106 Microbiology Data (last 24 hrs): 03/21/18 15:44 Nasopharnyx Influenza Type A Antigen Screen - Final 03/21/18 15:44 Nasopharnyx Influenza Type B Antigen Screen - Final Assessment and Plan - Problems (Diagnosis) (1) Sepsis Current Visit: Yes Status: Acute Qualifiers: Sepsis type: sepsis due to unspecified organism Qualified Code(s): A41.9 - Sepsis, unspecified organism (2) COPD exacerbation Current Visit: Yes Status: Acute (3) Pneumonia Current Visit: Yes Status: Acute Qualifiers: Pneumonia type: due to unspecified organism Laterality: bilateral Lung location: lower lobe of lung Qualified Code(s): J18.1 - Lobar pneumonia, unspecified organism (4) Elevated troponin Onset Date: 03/08/18 Current Visit: No Status: Acute (5) Small cell lung cancer Onset Date: 03/08/18 Current Visit: No Status: Acute (6) Hypothyroidism Onset Date: 03/08/18 Current Visit: No Status: Chronic Qualifiers: Hypothyroidism type: unspecified Qualified Code(s): E03.9 - Hypothyroidism , unspecified - Plan The patient will be admitted to the hospital due to sepsis, secondary to COPD exacerbation due to pneumonia. He required vasopressors initially to sustain his blood pressure, currently Levophed is off. Continue IV broad spectrum antibiotics. The patient said that he has been treated with antibiotics for UTI recently as well. Continue close monitoring of his clinical status. - Advance Directives Does patient have a Living Will: Yes Does patient have a Durable POA for Healthcare: Yes - Code Status/Comfort Care Code Status Assessed: Yes Code Status: Full Code Critical Care: Yes (30 minutes)
[2018-03-22] MEDS: CEFEPIME/SWI 1gm 1 GM/10 ML SYR IVP SCH ×3 (01:18→17:49)
[2018-03-22] MEDS ORDERED: D5W 250 ML IV ONE (02:46)
[2018-03-22] MEDS ORDERED: NOREPINEPHRINE 4 MG/4 ML VIAL ONE (02:46)
[2018-03-22] MEDS: ACETAMINOPHEN 500 MG TAB PO PRN ×3 (03:39→17:49)
[2018-03-22 05:15] LABS: Absolute Lymphocytes (CBC) 0.2 K/uL (0.7-4.9); Absolute Monocytes 0.3 K/uL (0.1-1.3); Absolute Neutrophil 13.6 K/uL (1.8-8.0); Basophils % 0.3 % (0-1.3); Eosinophils % 0.1 % (0-4.4); Hematocrit 24.9 % (39.6-49.0); Lymphocytes % 1.6 % (15.3-44.8); MPV 6.9 fL (7.6-11.3); Monocytes % 1.9 % (3.3-12.3); RBC Red Blood Cell Count 2.84 M/uL (4.33-5.43)
--- NOTE | 2018-03-22 05:17 | EKG ---
Test Date: 2018-03-21 Test Time: 14:31:09 Rotary Machine Operator: JOSE ARMANDO MEASUREMENT RESULTS: Intervals: Rate: 118 OK: QRSD: 120 QT: 354 QTc: 496 Sieper: P: OK: QRS: 9 T: 41 INTERPRETIVE STATEMENTS: Sinus tachycardia with frequent premature ventricular complexes Right bundle branch block Borderline ECG Compared to ECG 03/07/2018 13:56:03 Ventricular premature complex(es) now present Sinus rhythm no longer present Electronically Signed On 03-22-18 05:16:39 DUPLEX TRIMMER by Carlos Montejo
[2018-03-22 05:43] LABS: Albumin 1.8 g/dL (3.4-5.0); Bilirubin Total 0.3 mg/dL (0.2-1.0); Protein, Total 5.2 g/dL (6.4-8.2)
[2018-03-22] MEDS ORDERED: NA CHLORIDE 0.9% 500 ML IV ONE (09:07)
--- NOTE | 2018-03-22 10:37 | RAD REPORT ---
EXAM DESCRIPTION: RAD - Chest Single View - 03/22/2018 10:23 am CLINICAL HISTORY: Shortness of breath COMPARISON: March 21 TECHNIQUE: AP portable chest image was obtained 1007 hours . FINDINGS: Lungs are slightly underinflated. Interstitial and alveolar opacification is present in marlys th lung walker worse in each lung base. Pattern is similar or slightly worse than comparison study. . Heart and vasculature are normal. Small bilateral pleural effusions are present similar or fractiona lly increased. IMPRESSION: Interstitial and alveolar opacification present along with small pleural effusions. Findings are similar or fractionally progressive from March 21.
--- NOTE | 2018-03-22 12:34 | EKG ---
Test Date: 2018-03-22 Test Time: 09:12:26 Dough Mixer: JOSE ARMANDO MEASUREMENT RESULTS: Intervals: Rate: 129 OH: QRSD: 132 QT: 360 QTc: 527 Mora: P: OH: QRS: -37 T: 53 INTERPRETIVE STATEMENTS: Sinus tachycardia Left axis deviation Right bundle branch block Abnormal ECG Compared to ECG 03/21/2018 14:31:09 Left-axis deviation now present Ventricular premature complex(es) no longer present Electronically Signed On 03-22-18 12:33:41 PROOFING MACHINE OPERATOR by Carlos Montejo
[2018-03-22] MEDS: NOREPINEPHRINE 4 MG in D5W 250 ML IV PRN ×2 (13:42→21:22)
[2018-03-22] MEDS ORDERED: ENOXAPARIN 80 MG/0.8 ML SQ ONE (17:14)
[2018-03-22 19:02] LABS: Arterial Blood Carboxyhemoglob 1.3 % (0-1.5); Blood Gas Oxyhemoglobin 90.1 % (94-97); Blood O2 Saturation 91.7 % (92-98.5)
--- NOTE | 2018-03-22 19:14 | PN ---
Date of Progress Note: 03/22/2018 Subjective: The patient seen and examined. Chart reviewed and case discussed with RN. The patient' s family at the bedside. Treatment plan explained. All questions answered. He did have episode of hypoxia along with tachycardia. Continues to be somewhat hypotensive, however, being weaned down fro m pressors. The patient overall states he feels about the same. Medication was reviewed. Physical Examination: Vital Signs: T-max 101.5 yesterday afternoon, current temperature is 99.5, heart rate 115, blood pre ssure 120/82, respirations 28, O2 92% on 2 L via nasal cannula. General: Awake, alert, oriented x3. Elderly male, ill appearing, in some mild distress. CV: S1, S2. Sinus tachycardia. Peripheral pulses present. Respiratory: Diminished breath sounds. The patient is tachypneic and use of accessory muscles is pr esent. Gastrointestinal: Abdomen is soft, nontender, nondistended. Positive bowel sounds. No guarding or rigidity. Extremities: No clubbing or cyanosis. Trace pedal edema. Neurologic: Nonfocal. Cranial nerves 2 through 12 intact grossly. No focal neurological deficits. Skin: No rashes. Normal skin turgor. Cap refill less than 2 seconds. Laboratory Data: Sodium 134, potassium 4, chloride 105, CO2 20, BUN 33, creatinine 2.2, glucose 106, calcium 7.7. CK is 1672. Troponin 0.47, 0.36. CRP is 104, albumin 1.8. WBC 14.1, H and H 8.6, 24 .9, platelets 368, neutrophils 96.1. D-dimer 6181. Blood culture is pending. Urine culture, no [facility]. Chest x-ray, personally reviewed, shows interstitial and alveolar opacification present along w ith the small pleural effusions. Findings similar or fractionally progressive from March 21. EKG shows sinus tachycardia, rate of 129, left axis deviation, right bundle-branch block. Assessment: 1.Septic shock due to pneumonia. The patient is still hypotensive, requiring pressors. We will con tinue broad-spectrum IV antibiotics and follow up on cultures. 2.Acute chronic obstructive pulmonary disease exacerbation. Continue nebulizer treatments. Monitor O2 level. The patient did have some episodes of hypoxia, placed on Ventimask. 3.Pneumonia, bilateral lower lobe HCAP. We will continue with broad-spectrum IV antibiotics and fol low up on cultures. Chest x-ray does not show any improvement today. 4.Hypoxia. The patient was also tachycardic. D-dimer is elevated. We will check for PE with V/Q s can, unable to do CT angio due to elevated creatinine. 5.Elevated troponin level, likely due to septic shock. No intervention planned by Cardiology. Appr eciate Dr. Garber's input. No ST-elevation on EKG. 6.History of small cell lung cancer. 7.Hypothyroidism. We will continue Synthroid. 8.Severe protein-calorie malnutrition. Albumin is 1.8. 9.Acute on chronic kidney injury stage III. 10.Normocytic normochromic anemia, likely anemia of chronic disease. Plan: Continue monitoring in ICU setting. Follow up on V/Q scan. Appreciate Cardiology input. Wea n off pressors as tolerated. Overall, guarded prognosis. The patient's daughters are durable power of neuroradiologist, but no medical power of neuroradiologist is set. After discussions regarding code status, the p atient states he needs more time to decide. Therefore, we will keep as full code for now. SA/MODL Voice ID: [id number] Report ID: [id number]
[2018-03-22] MEDS: PRAMIPEXOLE 1 MG TAB PO SCH (20:23)
[2018-03-22] MEDS: FERROUS SULFATE 325 MG TAB PO SCH (20:23)
[2018-03-22] MEDS: HOME MED 1 EA UNK (Budesonide/Formoterol Fumarate [Symbicort 160-4.5 Mcg Inhaler] 2 PUFF) IH SCH (21:00)
[2018-03-23] MEDS: CEFEPIME/SWI 1gm 1 GM/10 ML SYR IVP SCH ×3 (00:32→16:58)
[2018-03-23 05:14] LABS: Absolute Lymphocytes (CBC) 0.6 K/uL (0.7-4.9); Absolute Monocytes 0.3 K/uL (0.1-1.3); Absolute Neutrophil 7.3 K/uL (1.8-8.0); Basophils % 0.3 % (0-1.3); Eosinophils % 1.5 % (0-4.4); Hematocrit 25.5 % (39.6-49.0); Lymphocytes % 7.4 % (15.3-44.8); MPV 7.2 fL (7.6-11.3); Monocytes % 3.3 % (3.3-12.3); RBC Red Blood Cell Count 2.88 M/uL (4.33-5.43)
[2018-03-23 05:23] LABS: Albumin 1.6 g/dL (3.4-5.0); Bilirubin Total 0.2 mg/dL (0.2-1.0); Potassium 3.6 mmol/L (3.5-5.1); Protein, Total 5.2 g/dL (6.4-8.2)
[2018-03-23] MEDS: LEVOTHYROXINE SOD 0.075 MG TAB PO SCH (06:00)
[2018-03-23] MEDS: PANTOPRAZOLE 40MG TABLET PO SCH (06:30)
[2018-03-23] MEDS ORDERED: VANCOMYCIN/NS 1 gm 1 GM/250 ML BAG IV SCH (09:00)
[2018-03-23] MEDS: HOME MED 1 EA UNK (Budesonide/Formoterol Fumarate [Symbicort 160-4.5 Mcg Inhaler] 2 PUFF) IH SCH (09:00)
--- NOTE | 2018-03-23 09:10 | RAD REPORT ---
EXAM DESCRIPTION: CT - Thorax Wo Con - 03/23/2018 8:49 am CLINICAL HISTORY: Shortness of breath COMPARISON: Portable chest same date, CT chest August 2012 TECHNIQUE: Axial 5 mm thick images of the chest were obtained without IV contrast. All CT scans are performed using dose optimization technique as appropriate and may include automated exposure control or mA/KV adjustment according to patient size. FINDINGS: Interstitial and alveolar opacification is present along the pleural margin of the upper a nd mid portion left upper lobe. There is interstitial opacification in the anterior lingula. This is suspected to be a combination of left upper lobe pneumonia and atelectasis. Increased interstitial op acification is seen peripherally in the right upper lobe. In the posterolateral right upper lobe near the minor fissure there is a 2.3 centimeter soft tissue mass with spiculated or angular margins. The re is stranding in the adjacent parenchyma. The mass has increased from the 1.5 centimeter measuremen t in 2012. Large bilateral pleural effusions are present with partial atelectasis of each lower lobe. No pneumothorax. Small nonspecific mediastinal lymph nodes are present not clearly different from comparison. Aorta an d pulmonary artery assessment is very limited in the absence of contrast. No pericardial thickening o r effusion. No chest wall mass or abnormal axillary lymphadenopathy. IMPRESSION: A 2.3 centimeter spiculated soft tissue mass in the right midlung field. Imaging charact eristics are suspicious for malignancy. The mass measured 1.5 cm in 2013. This is relatively small a mount of growth over 5 years. An atypical presentation of a granuloma or focus of scarring would also be a differential consideration. As clinical findings warrant, PET-CT imaging could be performed to evaluate for metabolic activity. T o avoid false-positive finding, this follow-up would need to be delayed until such time as any infect ious/ inflammatory process has resolved. Large bilateral layering pleural effusions. Loculation is not suspected. Bilateral lower lobe atelectasis. Airspace opacification in the posterior left upper lobe is suspicio us for an early pneumonia. Right middle lobe and bilateral upper lobe interstitial opacification has increased from 2013. This c ould be an acute interstitial edema or infiltrate as well as progressive fibrosis.
--- NOTE | 2018-03-23 09:21 | EKG ---
Test Date: 2018-03-23 Test Time: 01:32:49 Supervisor [place]: COURT LIAISON MEASUREMENT RESULTS: Intervals: Rate: 110 WI: QRSD: 140 QT: 362 QTc: 489 [place]: P: WI: QRS: -34 T: 52 INTERPRETIVE STATEMENTS: Atrial fibrillation with rapid ventricular response with premature ventricular or aberrantly conducted complexes Left axis deviation Nonspecific intraventricular block Abnormal ECG Compared to ECG 03/22/2018 09:12:26 Ventricular premature complex(es) now present Sinus tachycardia no longer present Right bundle-branch block no longer present Electronically Signed On 03-23-18 09:20:29 ROLL THREADER OPERATOR by Carlos Montejo
[2018-03-23 11:34] LABS: Arterial Blood Carboxyhemoglob 1.2 % (0-1.5); Blood Gas Oxyhemoglobin 96.4 % (94-97); Blood O2 Saturation 98.2 % (92-98.5)
--- NOTE | 2018-03-23 12:51 | PN ---
Date of Progress Note: 03/23/2018 Subjective: The patient seen and examined. Chart reviewed and case discussed with RN. The patient had to be placed on BiPAP last night due to the respiratory distress, now in atrial fibrillation. Th e patient states he does not feel well and still deciding on his code status, however, for now wants to be full code, was previously DNR. Medications: List reviewed. Physical Examination: Vital Signs: Temperature 98.5, heart rate 108, blood pressure 103/52, respirations 24, O2 98% on BiP AP. General: Awake, alert, oriented x3, ill-appearing elderly male, in mild respiratory distress. CV: S1 and S2. Irregularly irregular. Peripheral pulses present. Respiratory: Moving air well. No wheezing or crackles. Gastrointestinal: Abdomen is soft, nontender, nondistended. Positive bowel sounds. Extremities: No clubbing, cyanosis. Does have pedal edema. Neurologic: Nonfocal. Laboratory Data: Sodium 134, potassium 3.6, chloride 105, CO2 20, BUN 39, creatinine 2.2, glucose 10 1, calcium 7.7. CK 586. Albumin 1.6. WBC 8.4, H and H 8.9 and 25.5, platelets 301, neutrophils 87% . ABG; pH 7.43, pCO2 24, pO2 60, and bicarb 15. Blood cultures no growth to date. Assessment: An 87-year-old male with: 1.Septic shock due to pneumonia. The patient is still hypotensive on Levophed, difficult to wean of f. Cultures negative to date. We will continue on IV antibiotics. 2.Acute chronic obstructive pulmonary disease exacerbation. Continue nebulizer treatments. The pat ient getting into respiratory distress. Now currently on BiPAP. 3.Acute respiratory distress with impending failure. The patient is currently on BiPAP. The patien t's code status is unclear. At this point wants to be full code, however, still wanting time to deci de, was previously DNR. He does not have any medical power of in house cra. 4.Bilateral lower lobe pneumonia, health care-associated pneumonia. The patient will continue on an tibiotics. Cultures negative to date. Chest x-ray did not show much improvement yesterday. We will obtain CT scan of the chest. 5.Elevated troponin level, likely secondary to septic shock. Cardiology on board. No intervention planned. 6.New onset atrial fibrillation. We will continue with Lovenox 1 mg/kg, likely secondary to hypoxia and sepsis. 7.History of small cell lung cancer. We will further assess with CT of the chest. 8.Hypothyroidism. Continue Synthroid. 9.Severe protein-calorie malnutrition, albumin less than 2. 10.Iydig-ju-cobicwh kidney disease, stage 3. 11.Normocytic normochromic anemia, anemia of chronic disease. Plan: We will address code status with the rest of the family members. We will obtain echocardiogra m to rule out RV strain. Not safe to go down for V/Q scan at this point. We will obtain CT chest. Consult Pulmonology. /MODL Voice ID: [id number] Report ID: [id number]
[2018-03-23] MEDS: PRAMIPEXOLE 1 MG TAB PO SCH (13:16)
--- NOTE | 2018-03-23 15:39 | ECHO ---
HEIGHT: 5 ft 7 in WEIGHT: 165 lb 6.4 oz DATE OF STUDY: 03/23/[address]: Kierra Whelan MD 2-DIMENSIONAL: YES M.MODE: YES DOPPLER: YES COLOR FLOW: YES TDS: NO PORTABLE: NO DEFINITY: NO BUBBLE STUDY: NO DIAGNOSIS: CHANGE IN RHYTHM CARDIAC HISTORY: CATHERIZATION: NO SURGERY: NO PROSTHETIC VALVE: NO PACEMAKER: NO MEASUREMENTS (cm) DIASTOLIC (NORMALS) SYSTOLIC (NORMALS) IVSd 1.4 (0.6-1.2) LA Diam 4.3 (1.9-4.0) LVEF 40% LVIDd 4.0 (3.5-5.7) LVIDs 3.2 (2.0-3.5) %FS 19% LVPWd 1.3 (0.6-1.2) Ao Diam 3.1 (2.0-3.7) 2 DIMENSIONAL ASSESSMENT: RIGHT ATRIUM: NORMAL LEFT ATRIUM: DILATED RIGHT VENTRICLE: NORMAL LEFT VENTRICLE: LEFT VENTRICULAR HYPERTROPHY TRICUSPID VALVE: NORMAL MITRAL VALVE: NORMAL PULMONIC VALVE: NORMAL AORTIC VALVE: SCLEROSIS PERICARDIAL EFFUSION: NONE AORTIC ROOT: NORMAL LEFT VENTRICULAR WALL MOTION: GLOBAL HYPOKINESIS. DOPPLER/COLOR FLOW: MILD AORTIC, MITRAL AND TRICUSPID REGURGITATION. NORMAL RIGHT VENTRICULAR SYSTOLIC PRESSURE. COMMENTS: DEPRESSED LEFT VENTRICULAR EJECTION FRACTION. DILATED LEFT ATRIUM. LEFT VENTRICULAR HYPERTROPHY. AORTIC SCLEROSIS WITH NO AORTIC STENOSIS. MILD AORTIC, MITRAL AND TRICUSPID REGURGITATION. TECHNOLOGIST: KELSIE SAVAGE
--- NOTE | 2018-03-23 15:45 | P.CNS ---
Date of Consult: 03/23/18 Chief Complaint: sepsis History of Present Illness: Patient is 87 years of age admitted to the hospital complaining of feeling very weak and some shortness of breath denies any cough. History of lung cancer his oral chemotherapy was stopped recently patient was hypotensive little confused history of COPD Allergies No Known Allergies Allergy (Verified 08/08/12 18:11) Home Medications: Levothyroxine [Synthroid*] 0.15 mg PO [id number] 08/09/12 Pramipexole Di-HCl [Mirapex] 1.5 mg PO NOON 08/09/12 Cranberry 4,200 mg PO TID 03/08/18 Cyanocobalamin (Vitamin B-12) [Vitamin B12] 1 tab PO DAILY 03/08/18 Fish Oil/Dha/Epa [Fish Oil 1,200 mg Fish Oil] 1,200 mg PO BID 03/08/18 Albuterol Sulfate [Proair Hfa] 2 puff IH TID PRN #1 hfa.aer.ad 03/09/18 Budesonide/Formoterol Fumarate [Symbicort 160-4.5 Mcg Inhaler] 2 puff IH BID #1 hfa.aer.ad 03/09/18 Pantoprazole [Protonix Tab] 40 mg PO DAILY #30 tab 03/09/18 metroNIDAZOLE [Flagyl] 500 mg PO TID #21 tablet 03/09/18 Ferrous Sulfate [Iron] 325 mg PO BEDTIME 03/22/18 - Past Medical/Surgical History Diabetic: No -: Non small-cell lung cancer -: Hypothyroidism -: Former tobacco use -: Restless leg syndrome -: Chronic diarrhea/nausea -: R inguinal hernia -: Diverticulosis -: Emphysema -: polyp removal -: blister on lip removed -: Lung biopsy Psychosocial/ Personal History: The patient is a . He lives by himself. He has several children - Social History Smoking Status: Former smoker Alcohol use: Yes CD- Drugs: No Caffeine use: Yes Place of Residence: Home Review of Systems General: Weakness Respiratory: Shortness of Breath Physical Examination Temp Pulse Resp BP Pulse Ox 98.5 F 120 H 13 79/40 L 94 03/23/18 04:00 03/23/18 13:00 03/23/18 13:00 03/23/18 13:00 12/14/18 13:00 General: Alert, Oriented x2, Other (Confused at times) HEENT: Atraumatic Neck: Supple Respiratory: Diminished (Bilaterally) Cardiovascular: No edema, Normal S1 S2 Gastrointestinal: Normal bowel sounds, Soft and benign, Non-distended - Problems (1) Shock Current Visit: Yes Status: Acute Plan: Patient is 87 years of age with a history of lung cancer COPD admitted with hypotension weakness is currently on Levophed chest x-ray shows some bilateral interstitial disease bilateral pleural effusion and a right sided lung mass blood cultures are so far negative patient's renal function has worsened pro calcitonin level is elevated patient has a respiratory alkalosis patient's white count is back to normal mild normocytic anemia echocardiogram pending I have added Decadron serum cortisol level thymine and vitamin-C continue with vancomycin cefepime
[2018-03-23] MEDS: ASCORBIC ACID 500 MG TABLET PO SCH (16:28)
[2018-03-23] MEDS: THIAMINE 200 MG/2 ML INJ IVP SCH (16:28)
[2018-03-23] MEDS: DEXAMETHASONE 4 MG/ML VIAL IV SCH (16:57)
[2018-03-23] MEDS ORDERED: ENOXAPARIN 80 MG/0.8 ML SQ SCH (17:00)
[2018-03-23] MEDS: FERROUS SULFATE 325 MG TAB PO SCH (21:00)
[2018-03-24] MEDS: CEFEPIME/SWI 1gm 1 GM/10 ML SYR IVP SCH ×3 (01:57→17:43)
[2018-03-24] MEDS: DEXAMETHASONE 4 MG/ML VIAL IV SCH ×2 (01:58→08:37)
[2018-03-24] MEDS: LEVOTHYROXINE SOD 0.075 MG TAB PO SCH (05:15)
[2018-03-24] MEDS: PANTOPRAZOLE 40MG TABLET PO SCH (05:16)
[2018-03-24 06:25] LABS: Basophils % 0.1 % (0-1.3); Eosinophils % 0.1 % (0-4.4); Hematocrit 24.9 % (39.6-49.0); Lymphocytes % 11.7 % (15.3-44.8); MPV 7.8 fL (7.6-11.3); Monocytes % 2.1 % (3.3-12.3); RBC Red Blood Cell Count 2.81 M/uL (4.33-5.43)
[2018-03-24 06:26] LABS: Absolute Lymphocytes (CBC) 0.3 K/uL (0.7-4.9)
[2018-03-24 06:43] LABS: Albumin 1.7 g/dL (3.4-5.0); Bilirubin Total 0.2 mg/dL (0.2-1.0); Potassium 3.9 mmol/L (3.5-5.1); Protein, Total 5.6 g/dL (6.4-8.2)
[2018-03-24] MEDS: THIAMINE 200 MG/2 ML INJ IVP SCH (08:36)
[2018-03-24] MEDS: ASCORBIC ACID 500 MG TABLET PO SCH (08:37)
[2018-03-24 09:19] LABS: Blood Morphology Comment NOTED (NOT SEEN); Burr Cells 2+; Platelet Estimate ADEQ
--- NOTE | 2018-03-24 09:43 | P.PN ---
Subjective Date of Service: 03/24/18 Chief Complaint: sepsis Subjective: Improving (Patient is doing much better he is currently eating shortness of breath has improved off vasopressors) Review of Systems General: Weakness Physical Examination - Vital Signs Temperature: 97.9 F Blood Pressure: 112/68 Pulse: 86 Respirations: 23 Pulse Ox (%): 96 - Physical Exam General: Alert, Oriented x3 HEENT: Atraumatic Neck: Supple Respiratory: Diminished (Diminished air entry bilaterally) - Studies Microbiology Data (last 24 hrs): 03/21/18 16:00 Clean Catch Urine [place] Count - Final 03/21/18 16:00 Clean Catch Urine - Final Assessment & Plan - Problems (Diagnosis) (1) Shock Current Visit: Yes Status: Resolved Plan: Shock resolved (2) Pleural effusion Current Visit: Yes Status: Acute Plan: Patient has bilateral pleural effusion echocardiogram shows depressed ejection fraction reduce prednisone to low-dose 10 mg twice a day transfer patient to the floor cultures are all negative Dc vancomycin cortisol level is satisfactory white count is now normal high risk for thromboembolism roving changer to p.o. Xarelto for now due to elevated creatinine will be unable to do CT angiogram no evidence of DVT his high risk for thromboembolism I have started him on Eliquis continue with thymine p.o. and vitamin-C low-dose prednisone had bronchodilators for possible underlying COPD transfer to the floor
[2018-03-24] MEDS: ARFORMOTEROL TARTRATE 15 MCG/2 ML VIAL.NEB NEB SCH ×2 (11:44→19:55)
[2018-03-24] MEDS ORDERED: ARFORMOTEROL TARTRATE 15 MCG/2 ML VIAL.NEB ONE (11:51)
[2018-03-24] MEDS: PRAMIPEXOLE 1 MG TAB PO SCH (12:40)
--- NOTE | 2018-03-24 15:25 | PN ---
Date of Progress Note: 03/24/2018 History: The patient was seen and examined. Chart reviewed and case discussed with RN. Overall, the patient is doing better on nasal cannula. He states that he does get anxious at times and blood pressure has improved. Medications: List reviewed. Physical Examination: Vital Signs: Temperature 97.9, heart rate 86, blood pressure 112/68, respirations 23, O2 96% on 4 L via nasal cannula. General: Awake, alert, oriented x3. Some mild distress, elderly male, ill- appearing. CV: S1, S2. Regular rate and rhythm. Peripheral pulses present. Respiratory: Diminished breath sounds at the bases, otherwise moving air well. No wheezing. The patient is tachypneic. No use of accessory muscles. Gastrointestinal: Abdomen is soft, nontender, nondistended. Positive bowel sounds. No guarding or rigidity. Extremities: No clubbing, cyanosis. The patient does have some pedal edema. Neurologic: Nonfocal. Skin: The patient does have chronic venous stasis changes, bilateral lower extremities. Laboratory Data: Sodium 137, potassium 3.9, chloride 105, CO2 19, BUN 43, creatinine 2.3, glucose 137, calcium 8.1, albumin 1.7. Cortisol level 19. WBC 2.4, H and H 8.5 and 24.9, platelets 282, neutrophils 86%. Blood cultures no growth to date. Assessment And Plan: An 87-year-old male with: 1. Septic shock secondary to pneumonia. The patient now off Levophed. Blood pressure improving. Cultures negative to date. We will continue IV antibiotics. Discontinue vancomycin. 2. Acute chronic obstructive pulmonary disease exacerbation. The patient is on nebulizer treatments, off BiPAP, steroids, switched to p.o. 3. Acute respiratory distress with hypoxia, improving, now back to nasal cannula. 4. Bilateral lower lobe pneumonia health care-associated. Continue antibiotics. Cultures are negative to date. 5. Bilateral pleural effusions. 6. Elevated troponin level secondary to septic shock. 7. New onset atrial fibrillation, paroxysmal, now back in sinus rhythm. The patient has been switched over to oral anticoagulation. 8. History of small cell lung cancer. 9. Hypothyroidism. Continue Synthroid. 10. Severe protein-calorie malnutrition. Albumin less than 2. Continue with protein supplementation. 11. Acute on chronic kidney disease, stage 3. 12. Creatinine somewhat elevated today compared to yesterday. 13. Normocytic normochromic anemia, secondary to anemia of chronic disease. 14. Hypertensive heart disease. Echocardiogram shows EF of 40% and left ventricular hypertrophy. Plan: We will step down to the floor. Continue to monitor closely. /THAD Voice ID: [id number] Report ID: [id number] RADHA
[2018-03-24] MEDS: IPRATROPIUM BROM 0.5MG/2.5ML NEB PRN (19:55)
[2018-03-24] MEDS: predniSONE 10 MG TAB PO SCH (20:43)
[2018-03-24] MEDS: APIXABAN 5 MG TABLET PO SCH (20:43)
[2018-03-24] MEDS: FERROUS SULFATE 325 MG TAB PO SCH (20:43)
[2018-03-25] MEDS: CEFEPIME/SWI 1gm 1 GM/10 ML SYR IVP SCH ×3 (00:36→16:52)
[2018-03-25] MEDS: LEVOTHYROXINE SOD 0.075 MG TAB PO SCH (06:15)
[2018-03-25] MEDS: PANTOPRAZOLE 40MG TABLET PO SCH (06:15)
[2018-03-25 06:57] LABS: Absolute Lymphocytes (CBC) 0.4 K/uL (0.7-4.9); Absolute Monocytes 0.4 K/uL (0.1-1.3); Absolute Neutrophil 5.5 K/uL (1.8-8.0); Basophils % 0.2 % (0-1.3); Hematocrit 25.5 % (39.6-49.0); Lymphocytes % 6.5 % (15.3-44.8); MPV 7.6 fL (7.6-11.3); Monocytes % 6.1 % (3.3-12.3); RBC Red Blood Cell Count 2.91 M/uL (4.33-5.43)
[2018-03-25 07:15] LABS: Bilirubin Total 0.2 mg/dL (0.2-1.0); Potassium 3.6 mmol/L (3.5-5.1); Protein, Total 5.9 g/dL (6.4-8.2)
[2018-03-25 08:26] LABS: Blood Morphology Comment NOT SEEN (NOT SEEN); Platelet Estimate ADEQ
[2018-03-25] MEDS: ASCORBIC ACID 500 MG TABLET PO SCH (08:42)
[2018-03-25] MEDS: predniSONE 10 MG TAB PO SCH ×2 (08:42→21:35)
[2018-03-25] MEDS: THIAMINE HCL 100 MG TABLET PO SCH (08:44)
[2018-03-25] MEDS: APIXABAN 5 MG TABLET PO SCH ×2 (08:44→21:35)
[2018-03-25] MEDS: ARFORMOTEROL TARTRATE 15 MCG/2 ML VIAL.NEB NEB SCH (10:57)
[2018-03-25] MEDS: PRAMIPEXOLE 1 MG TAB PO SCH (12:57)
--- NOTE | 2018-03-25 18:22 | PN ---
Date of Progress Note: 03/25/2018 Subjective: Patient seen and examined. Chart reviewed and case discussed with RN. The patient doin g significantly better. No acute events overnight. Medications: List reviewed. Physical Examination: Vital Signs: Temperature 99.9, heart rate 102, blood pressure 132/86, respirations 20, O2 94% on 3.5 L via nasal cannula. General: Awake, alert, oriented x3, in some mild respiratory distress. Elderly male. CVS: S1, S2. Regular rate and rhythm. Peripheral pulses present. No murmurs. Respiratory: Moving air well bilaterally. No wheezing or stridor. Gastrointestinal: Abdomen is soft, nontender, nondistended. Positive bowel sounds. No guarding or rigidity. Extremities: No clubbing, cyanosis. Trace edema. Skin: Bilateral venous stasis changes. Neuro: Cranial nerves 2 through 12 intact grossly. No focal neurological deficit. Speech is normal . Laboratory Data: Sodium 135, potassium 3.6, chloride 107, CO2 21, BUN 49, creatinine 2, glucose 128, calcium 8.4, AST 38, ALT 47, albumin 2. WBC 6.3, H and H 8.9/25.5, platelets 318, neutrophils 87%, 1% bands. Blood cultures: No growth to date. Urine culture: No growth final. Assessment: An 87-year-old male with: 1.Septic shock secondary to pneumonia, off pressors. Blood pressure is improved, on antibiotics. C ultures are negative to date. 2.Acute chronic obstructive pulmonary disease exacerbation. Continue nebulizer treatments. Still o n 4 L of oxygen via nasal cannula. Continue p.o. steroids. Appreciate Dr. Thayer's input. 3.Acute respiratory distress with hypoxia, currently still on nasal cannula. 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 4.Bilateral lower lobe pneumonia, healthcare associated. Continue antibiotics. Cultures are negati ve. 5.Bilateral pleural effusions. 6.Elevated troponin level secondary to septic shock. No chest pain. 7.New-onset atrial fibrillation, paroxysmal, switches back and forth from sinus rhythm, now on Eliqu is. 8.History of small-cell lung cancer. 9.Hypothyroidism. Synthroid. 10.Severe protein-calorie malnutrition, improving. Encourage p.o. intake supplementation. Albumin is 2. 11.Qjqop-kw-sgnwoky kidney disease stage 3. Creatinine is improving. We will continue to monitor. Avoid NSAIDs. 12.Normocytic normochromic anemia secondary to anemia of chronic disease. 13.Hypertensive heart disease. Plan: The patient will likely need physical therapy and family is interested in long term faci lity placement. We will consult Social Work. V/Q scan in a.m. Continue anticoagulation and antibio tics. Wean off oxygen as tolerated. SA/MODL Voice ID: [id number] Report ID: [id number]
[2018-03-25] MEDS: FERROUS SULFATE 325 MG TAB PO SCH (21:35)
[2018-03-26] MEDS: CEFEPIME/SWI 1gm 1 GM/10 ML SYR IVP SCH ×3 (00:34→16:17)
--- NOTE | 2018-03-26 00:55 | CON ---
Date of Consultation: 03/22/2018 Reason For Consultation: Elevated troponin. History Of Present Illness: The patient is an 87-year-old white male, has history of metastatic lung cancer, hypothyroidism, gastroesophageal reflux disease as well as anemia. He came in with sepsis. He was just in the hospital March 02, 2018, for shortness of breath. At that time, he was listed as being a DNR. He denied any chest pain, nausea, vomiting, diaphoresis, PND, orthopnea, pedal phuc a, palpitations, or syncope. He had a white count of 16,000, creatinine of 2.2. His hemoglobin was 8.3. His CPK was 1672, MB of 5.7. Troponin was 0.36. His chest x-ray showed bilateral pneumonia. EKG showed sinus tachycardia with PVCs and right bundle-branch block. Past Medical History: As stated earlier. Allergies: NONE. Review of Systems: Negative. Social History: Negative. Family History: Negative. Medications: At home include inhalers, iron tablets, Synthroid, and Protonix. Physical Examination: General: He was in sinus rhythm. Vital Signs: Stable. Afebrile. HEENT: Negative. Neck: Supple with no bruit, JVD, or thyromegaly. Chest: Reveals decreased breath sounds bilaterally. No rales. Cardiac: Revealed regular rhythm and rate with an occasional ectopy, but no gallops, rubs, or murmur s. Abdomen: Benign. Extremities: Revealed no clubbing, cyanosis. He had trace edema. Diagnostic Data: As stated earlier. Impression And Plan: 1.Elevated troponin secondary to sepsis and pneumonia. Elevated CPKs and MB's are suggestive of rha bdomyolysis type of pictures. 2.Renal insufficiency. 3.Anemia. 4.Elevated white count secondary to pneumonia. 5.Bilateral pneumonia, on antibiotics. 6.Gastroesophageal reflux disease. 7.Abnormal EKG. 8.Metastatic breast cancer. The patient has expressed interest in the past of not having much in wa y of invasive cardiac workup. An echocardiogram is pending. We will see what that shows, but I doub t that we are going to find anything drastic. It will be good to rule out wall motion abnormalities and effusions. JATINDER/MODL Voice ID: [id number] Report ID: [id number]
[2018-03-26] MEDS ORDERED: LORAZEPAM 0.5 MG TABLET PO ONE (01:37)
[2018-03-26 05:01] LABS: Absolute Lymphocytes (CBC) 0.6 K/uL (0.7-4.9); Absolute Monocytes 0.9 K/uL (0.1-1.3); Absolute Neutrophil 9.6 K/uL (1.8-8.0); Basophils % 0.1 % (0-1.3); Hematocrit 25.9 % (39.6-49.0); Lymphocytes % 5.3 % (15.3-44.8); MPV 7.3 fL (7.6-11.3); Monocytes % 7.7 % (3.3-12.3); RBC Red Blood Cell Count 2.97 M/uL (4.33-5.43)
[2018-03-26 05:19] LABS: Bilirubin Total 0.3 mg/dL (0.2-1.0); Potassium 3.6 mmol/L (3.5-5.1); Protein, Total 5.8 g/dL (6.4-8.2)
[2018-03-26 06:28] LABS: Anisocytosis 1+; Blood Morphology Comment NOTED (NOT SEEN); Platelet Estimate ADEQ
[2018-03-26] MEDS: LEVOTHYROXINE SOD 0.075 MG TAB PO SCH (07:34)
[2018-03-26] MEDS: PANTOPRAZOLE 40MG TABLET PO SCH (07:34)
[2018-03-26] MEDS: ARFORMOTEROL TARTRATE 15 MCG/2 ML VIAL.NEB NEB SCH ×2 (08:50→19:51)
[2018-03-26] MEDS: ASCORBIC ACID 500 MG TABLET PO SCH (09:28)
[2018-03-26] MEDS: THIAMINE HCL 100 MG TABLET PO SCH (09:28)
[2018-03-26] MEDS: APIXABAN 5 MG TABLET PO SCH ×2 (09:28→20:17)
[2018-03-26] MEDS: predniSONE 10 MG TAB PO SCH ×2 (09:28→20:17)
[2018-03-26 11:03] LABS: Arterial Blood Carboxyhemoglob 1.2 % (0-1.5); Blood Gas Oxyhemoglobin 95.5 % (94-97); Blood O2 Saturation 97.3 % (92-98.5)
[2018-03-26] MEDS: PRAMIPEXOLE 1 MG TAB PO SCH (11:16)
--- NOTE | 2018-03-26 11:21 | RAD REPORT ---
EXAM DESCRIPTION: CT - Head Brain Wo Cont - 03/26/2018 11:08 am CLINICAL HISTORY: Transient alteration of awareness COMPARISON: None. TECHNIQUE: Axial 5 mm thick images of the head were obtained without IV contrast. All CT scans are performed using dose optimization technique as appropriate and may include automated exposure control or mA/KV adjustment according to patient size. FINDINGS: No intracranial hemorrhage, mass, edema or shift of mid-line structures. No cortical edema or sulcal effacement. Patient has moderately advanced atrophy and chronic ischemic change. No abnorm al extra-axial fluid collections. Ventricles are in proportion to volume loss. Arterial and physiolog ic calcifications are present. Mastoid air cells and visualized portions of the paranasal sinuses are clear. No acute bony findings. IMPRESSION: Moderate severity atrophy and chronic ischemic change with no acute intracranial finding .
--- NOTE | 2018-03-26 13:54 | PN ---
Date of Progress Note: 03/26/2018 Subjective: Patient seen and examined. Chart reviewed and case discussed with RN. The patient had sudden onset of confusion and agitation, trying to pull on his BiPAP, trying to get out of bed. Medications: List reviewed. Physical Examination: Vital Signs: Temperature 97.1, heart rate 95, blood pressure 108/54, O2 99% on BiPAP. General: Awake, alert, oriented to self only, confused, agitated, elderly male, ill-appearing, in so me respiratory distress. CV: S1, S2. Irregularly irregular. Peripheral pulses present. Respiratory: Moving air well bilaterally except at the bases. Some crackles heard. The patient is tachypneic with some use of accessory muscles. Gastrointestinal: Abdomen is soft, nontender, nondistended. Positive bowel sounds. Extremities: No clubbing, cyanosis, or edema. Neuro: Cranial nerves 2 through 12 intact grossly. No focal neurological deficit. Speech is normal . Laboratory Data: Sodium 139, potassium 3.6, chloride 107, CO2 22, BUN 51, creatinine 2, glucose 128, calcium 8.3, albumin 2. WBC 11, hemoglobin and hematocrit 8.9 and 25.9, platelets 339, neutrophils 86%. Head CT scan pending. Assessment: An 87-year-old male with: 1.Septic shock secondary to pneumonia, improved. Blood pressure is stable on antibiotics. Cultures are negative. 2.Acute chronic obstructive pulmonary disease exacerbation, on nebulizer treatments. Still on suppl emental oxygen, requiring BiPAP. We will repeat ABG. Continue steroids p.o. Dr. Thayer on board. 3.Acute respiratory distress with hypoxia requiring BiPAP secondary to chronic obstructive pulmonary disease and possible pulmonary embolism. 4.New-onset atrial fibrillation, paroxysmal. Continue with Eliquis for rate control. 5.Bilateral lower lobe pneumonia, healthcare associated. Continue with antibiotics. Cultures negat lucia to date. 6.Bilateral pleural effusions, likely coming from his history of lung cancer. 7.History of small cell lung cancer. 8.Elevated troponin level secondary to septic shock. No intervention planned. Appreciate Dr. Hallie guerrero's and Dr. Montejo's input. 9.Hypothyroidism. Continue Synthroid. 10.Severe protein-calorie malnutrition. To continue p.o. protein supplementation. 11.Acute on chronic kidney disease stage 3. Creatinine stable. We will monitor and avoid NSAIDs. 12.Normocytic normochromic anemia secondary to anemia of chronic disease. 13.Hypertensive heart disease. 14.Acute metabolic encephalopathy, unclear etiology. We will obtain head CT scan to rule out any so rt of hemorrhage. We will monitor. May be related to medication side effect. Plan: Discharge planning. Likely will need SNF for physical therapy and rehab. CARLOS Voice ID: [id number] Report ID: [id number]
[2018-03-26] MEDS: IPRATROPIUM BROM 0.5MG/2.5ML NEB PRN (19:52)
[2018-03-26] MEDS: FERROUS SULFATE 325 MG TAB PO SCH (20:17)
[2018-03-27] MEDS: CEFEPIME/SWI 1gm 1 GM/10 ML SYR IVP SCH ×3 (00:40→16:05)
[2018-03-27 05:00] LABS: Absolute Monocytes 0.8 K/uL (0.1-1.3); Absolute Neutrophil 8.7 K/uL (1.8-8.0); Basophils % 0.5 % (0-1.3); Eosinophils % 0.1 % (0-4.4); Hematocrit 26.8 % (39.6-49.0); Lymphocytes % 9.1 % (15.3-44.8); MPV 7.8 fL (7.6-11.3); Monocytes % 7.7 % (3.3-12.3); RBC Red Blood Cell Count 3.06 M/uL (4.33-5.43)
[2018-03-27 05:21] LABS: Albumin 2.1 g/dL (3.4-5.0); Bilirubin Total 0.3 mg/dL (0.2-1.0); Potassium 3.7 mmol/L (3.5-5.1); Protein, Total 6.1 g/dL (6.4-8.2)
[2018-03-27] MEDS: LEVOTHYROXINE SOD 0.075 MG TAB PO SCH (05:31)
[2018-03-27] MEDS: PANTOPRAZOLE 40MG TABLET PO SCH (05:32)
[2018-03-27] MEDS: ARFORMOTEROL TARTRATE 15 MCG/2 ML VIAL.NEB NEB SCH ×2 (07:36→20:35)
[2018-03-27] MEDS: predniSONE 10 MG TAB PO SCH ×2 (10:09→20:07)
[2018-03-27] MEDS: APIXABAN 5 MG TABLET PO SCH ×2 (10:09→20:06)
[2018-03-27] MEDS: THIAMINE HCL 100 MG TABLET PO SCH (10:10)
[2018-03-27] MEDS: ASCORBIC ACID 500 MG TABLET PO SCH (10:10)
--- NOTE | 2018-03-27 11:47 | P.PN ---
Subjective Date of Service: 03/27/18 Chief Complaint: sepsis Subjective: No new changes Patient seen and examined at bedside. No family at bedside. Chart reviewed and case discussed with nursing staff. Still requiring BiPAP intermittently. When examined this morning, he was off of BiPAP, on 5 L of oxygen via nasal cannula and he was seen to be using accessory muscles for breathing. Review of Systems As noted Physical Examination - Vital Signs Temperature: 97.7 F Blood Pressure: 120/84 Pulse: 100 Respirations: 24 Pulse Ox (%): 90 - Physical Exam General: Alert, Mild distress (Struggling to breathe), Other (Elderly male, ill appearing) HEENT: Atraumatic, PERRLA, EOMI Neck: Supple, JVD not distended Respiratory: Crackles/rales, Other (Tachypneic) Cardiovascular: Irregular heart rate/rhythm (irregularly irregular) Gastrointestinal: Normal bowel sounds, No tenderness Musculoskeletal: No tenderness Integumentary: No rashes Neurological: Normal speech, Normal tone, Normal affect Lymphatics: No axilla or inguinal lymphadenopathy - Studies Microbiology Data (last 24 hrs): 03/21/18 15:16 Blood - Blood Aerobic Blood Culture - Final No growth in 5 days. 03/21/18 15:16 Blood - Blood Anaerobic Blood Culture - Final 03/21/18 14:56 Blood - Blood Aerobic Blood Culture - Final No growth in 5 days. 03/21/18 14:56 Blood - Blood Anaerobic Blood Culture - Final No growth in 5 days. Medications List Reviewed: Yes Assessment And Plan - Plan This is an 87-year-old male with: Septic shock secondary to pneumonia, improved. Blood pressure is stable on antibiotics (IV cefepime). Cultures are negative. Acute chronic obstructive pulmonary disease exacerbation, on nebulizer treatments. Still on supplemental oxygen, requiring BiPAP. Dr. Thayer on board. Acute respiratory distress with hypoxia requiring BiPAP secondary to chronic obstructive pulmonary disease and possible pulmonary embolism. New-onset atrial fibrillation, paroxysmal. Continue with Eliquis for rate control. Bilateral lower lobe pneumonia, healthcare associated. Continue with antibiotics, IV cefepime. Cultures negative to date. Bilateral pleural effusions, likely coming from his history of lung cancer. History of small cell lung cancer. Elevated troponin level secondary to septic shock. No intervention planned. Appreciate Dr. Garber's and Dr. Montejo's input. Hypothyroidism. Continue Synthroid. Severe protein-calorie malnutrition. To continue p.o. protein supplementation. Acute on chronic kidney disease stage 3. Creatinine stable. We will monitor and avoid NSAIDs. Normocytic normochromic anemia secondary to anemia of chronic disease. Hypertensive heart disease. Acute metabolic encephalopathy, unclear etiology. Improved. CT head negative for any acute abnormalities. Continue to monitor. This may be secondary to medication side effect. DVT prophylaxis: Eliquis GI prophylaxis: Not needed Diet: Heart healthy Disposition: Continue to monitor; Discharge planning, Likely will need SNF for physical therapy and rehab. Social work involved Physician Review: Patient Assessed, Agree with Above Assessment and Plan Time Spent Managing PTS Care (In Minutes): 35
[2018-03-27] MEDS: PRAMIPEXOLE 1 MG TAB PO SCH (11:53)
[2018-03-27] MEDS: FERROUS SULFATE 325 MG TAB PO SCH (20:05)
[2018-03-27] MEDS: ACETAMINOPHEN 500 MG TAB PO PRN (20:05)
[2018-03-27] MEDS: IPRATROPIUM BROM 0.5MG/2.5ML NEB PRN ×2 (20:35→21:15)
[2018-03-28] MEDS: CEFEPIME/SWI 1gm 1 GM/10 ML SYR IVP SCH ×3 (00:19→17:12)
[2018-03-28] MEDS: LEVOTHYROXINE SOD 0.075 MG TAB PO SCH (05:05)
[2018-03-28] MEDS: PANTOPRAZOLE 40MG TABLET PO SCH (06:05)
[2018-03-28] MEDS: ARFORMOTEROL TARTRATE 15 MCG/2 ML VIAL.NEB NEB SCH ×2 (08:03→19:47)
[2018-03-28] MEDS: IPRATROPIUM BROM 0.5MG/2.5ML NEB PRN ×3 (08:32→19:47)
[2018-03-28] MEDS: APIXABAN 5 MG TABLET PO SCH ×3 (09:00→22:05)
[2018-03-28] MEDS: ASCORBIC ACID 500 MG TABLET PO SCH ×2 (09:00→10:39)
[2018-03-28] MEDS: THIAMINE HCL 100 MG TABLET PO SCH ×2 (09:00→10:39)
[2018-03-28] MEDS: predniSONE 10 MG TAB PO SCH ×3 (09:00→22:05)
[2018-03-28] MEDS: PRAMIPEXOLE 1 MG TAB PO SCH (12:10)
--- NOTE | 2018-03-28 14:41 | RAD REPORT ---
EXAM DESCRIPTION: RAD - Chest Single View - 03/28/2018 2:32 pm CLINICAL HISTORY: PNA, effusions, interval management Chest pain. COMPARISON: Chest Single View dated 03/22/2018; Chest Single View dated 03/21/2018; Chest Single Vie w dated 03/07/2018; CHEST SINGLE VIEW dated 01/17/2014 FINDINGS: Portable technique limits examination quality. Significant worsening of bilateral pulmonary opacities is noted since the comparative study, likely i ndicating worsening pneumonia. The heart is mildly enlarged in size. Bilateral pleural effusions are present, small. IMPRESSION: Significant worsening in lung aeration since 03/22/2018 study.
--- NOTE | 2018-03-28 14:55 | P.PN ---
Subjective Date of Service: 03/28/18 Chief Complaint: sepsis Subjective: No new changes Patient seen and examined at bedside. No family at bedside. Chart reviewed and case discussed with nursing staff. Still requiring BiPAP. When examined this morning, if he had increased work of breathing with, was requiring BiPAP Unable to really communicate, which is far from his baseline Review of Systems As noted Physical Examination - Vital Signs Temperature: 97.9 F Blood Pressure: 145/65 Pulse: 105 Respirations: 20 Pulse Ox (%): 90 - Physical Exam General: Moderate distress HEENT: Atraumatic, PERRLA, EOMI Neck: Supple, JVD not distended Respiratory: Other (Increased work of breathing, tachypneic, on BiPAP) Cardiovascular: Normal S1 S2, Irregular heart rate/rhythm Gastrointestinal: Normal bowel sounds, No tenderness Musculoskeletal: No tenderness Integumentary: No rashes Neurological: Normal speech, Normal tone, Normal affect Lymphatics: No axilla or inguinal lymphadenopathy - Studies Medications List Reviewed: Yes Assessment And Plan - Plan This is an 87-year-old male with: Septic shock secondary to pneumonia, improved. Blood pressure is stable on antibiotics. Cultures are negative. Acute chronic obstructive pulmonary disease exacerbation, on nebulizer treatments. Still on supplemental oxygen, requiring BiPAP. Dr. Thayer on board. Acute respiratory distress with hypoxia requiring BiPAP secondary to chronic obstructive pulmonary disease and possible pulmonary embolism. New-onset atrial fibrillation, paroxysmal. Continue with Eliquis for rate control. Bilateral lower lobe pneumonia, healthcare associated. Continue with antibiotics, IV cefepime. Added Levaquin as worsening pneumonia noted on repeat chest x-ray. Cultures negative to date. Bilateral pleural effusions, likely coming from his history of lung cancer. History of small cell lung cancer. On chart review, patient noted to be on oral chemotherapy medication trend last visit, which was stopped for 2 weeks due to excessive nausea vomiting. I am unsure if patient has restarted taking the medication as he is unable to tell me so and there is no family at bedside. Attempts to call our number provided, unable to reach or leave a message. Will attempt to contact her again for further information Elevated troponin level secondary to septic shock. No intervention planned. Appreciate Dr. Garber's and Dr. Montejo's input. Hypothyroidism. Continue Synthroid. Severe protein-calorie malnutrition. To continue p.o. protein supplementation. Acute on chronic kidney disease stage 3. Creatinine stable. We will monitor and avoid NSAIDs. Normocytic normochromic anemia secondary to anemia of chronic disease. Hypertensive heart disease. Acute metabolic encephalopathy, unclear etiology. Improved. CT head negative for any acute abnormalities. Continue to monitor. This may be secondary to medication side effect. DVT prophylaxis: Eliquis GI prophylaxis: Not needed Diet: Heart healthy Disposition: Continue to monitor; Discharge planning, Likely will need SNF for physical therapy and rehab. Social work involved Physician Review: Patient Assessed, Agree with Above Assessment and Plan Time Spent Managing PTS Care (In Minutes): 35
[2018-03-28] MEDS ORDERED: Levofloxacin 750mg IV 750 MG/150 ML BAG IV SCH (15:00)
[2018-03-28] MEDS: FERROUS SULFATE 325 MG TAB PO SCH ×2 (21:00→22:05)
[2018-03-28] MEDS: PROMOD 30 ML DOSE PO SCH ×2 (21:00→22:06)
[2018-03-29] MEDS: CEFEPIME/SWI 1gm 1 GM/10 ML SYR IVP SCH ×3 (01:03→17:42)
[2018-03-29] MEDS: IPRATROPIUM BROM 0.5MG/2.5ML NEB PRN ×2 (02:09→08:08)
[2018-03-29] MEDS ORDERED: ALBUMIN HUMAN 25% 100 ML IV ONE (02:20)
[2018-03-29] MEDS ORDERED: FUROSEMIDE 20 MG/ 2ML VIAL IV ONE (02:20)
[2018-03-29] MEDS ORDERED: HYDROCORTISONE SUC 100 MG INJ IV ONE (02:23)
[2018-03-29] MEDS ORDERED: NA CHLORIDE 0.9% 50 ML ONE (03:28)
[2018-03-29] MEDS ORDERED: MORPHINE 2 MG/ML SYR IV ONE ×2 (04:05→05:42)
[2018-03-29] MEDS ORDERED: MORPHINE 2 MG/ML SYR ONE (04:20)
[2018-03-29 04:49] LABS: Urine Appearance CLEAR; Urine Bilirubin NEGATIVE (NEG); Urine Blood 1+ (NEG); Urine Color YELLOW; Urine Glucose NEGATIVE (NEG); Urine Protein 2+ (NEG); Urine Urobilinogen 0.2 mg/dL (0.2-1.0)
[2018-03-29 05:16] LABS: Urine Microscopic Reflex ORDER UMIC
[2018-03-29 05:22] LABS: Urine RBC NONE SEEN /HPF (NONE SEEN)
[2018-03-29 05:23] LABS: Urine Amorphous Sediment 3+ /HPF (NONE SEEN); Urine Bacteria <20 /HPF (NONE SEEN); Urine Culture Reflex Order NOT NEEDED
[2018-03-29] MEDS: LEVOTHYROXINE SOD 0.075 MG TAB PO SCH (06:00)
[2018-03-29] MEDS: PANTOPRAZOLE 40MG TABLET PO SCH (06:30)
[2018-03-29 07:04] LABS: Absolute Lymphocytes (CBC) 0.3 K/uL (0.7-4.9); Absolute Monocytes 0.3 K/uL (0.1-1.3); Absolute Neutrophil 10.6 K/uL (1.8-8.0); Eosinophils % 0.1 % (0-4.4); Hematocrit 23.8 % (39.6-49.0); Lymphocytes % 2.6 % (15.3-44.8); MPV 7.6 fL (7.6-11.3); Monocytes % 2.5 % (3.3-12.3)
[2018-03-29 07:09] LABS: Albumin 2.3 g/dL (3.4-5.0); Bilirubin Total 0.5 mg/dL (0.2-1.0); Magnesium 2.1 mg/dL (1.8-2.4); Phosphorus 3.4 mg/dL (2.5-4.9); Potassium 3.5 mmol/L (3.5-5.1); Protein, Total 6.1 g/dL (6.4-8.2)
[2018-03-29] MEDS ORDERED: Pharmacy Consult 1 EA XX PRN (07:46)
--- NOTE | 2018-03-29 07:52 | P.PN ---
Subjective Date of Service: 03/29/18 Chief Complaint: sepsis Patient was transferred from the floor and become more confused hypoxic requiring BiPAP chest x-ray shows extensive interstitial lung disease although there is some improvement from yesterday no evidence of obvious sepsis Review of Systems is unable to be obtained Physical Examination - Vital Signs Temperature: 97.9 F Blood Pressure: 123/95 Pulse: 119 Respirations: 40 Pulse Ox (%): 93 - Physical Exam General: Alert, Delirious Neck: Supple Respiratory: Clear to auscultation bilaterally Cardiovascular: No edema, Normal S1 S2 - Studies Medications List Reviewed: Yes Assessment & Plan - Problems (Diagnosis) (1) Pleural effusion Current Visit: Yes Status: Acute Plan: Patient has bilateral pleural effusion echocardiogram shows depressed ejection fraction reduce prednisone to low-dose 10 mg twice a day transfer patient to the floor cultures are all negative Dc vancomycin cortisol level is satisfactory white count is now normal high risk for thromboembolism exchange floor manager to p.o. Xarelto for now due to elevated creatinine will be unable to do CT angiogram no evidence of DVT his high risk for thromboembolism I have started him on Eliquis continue with thymine p.o. and vitamin-C low-dose prednisone had bronchodilators for possible underlying COPD transfer to the floor (2) Interstitial lung disease Current Visit: Yes Status: Acute Plan: Patient has extensive interstitial lung disease although seems to have improved from yesterday I have ordered some steroids added vancomycin Dc levofloxacin repeat blood cultures arterial blood gases will check with family members regarding DNR is currently on a EPAP of 10 FiO2 80% labs chest x-ray reviewed patient is anti coagulated Physician Review: Patient Assessed, Agree with Above Assessment and Plan
[2018-03-29] MEDS ORDERED: VANCOMYCIN 1.25 GM in NA CHLORIDE 0.9% 250 ML IVPB SCH (08:00)
[2018-03-29] MEDS: ARFORMOTEROL TARTRATE 15 MCG/2 ML VIAL.NEB NEB SCH ×2 (08:08→20:00)
--- NOTE | 2018-03-29 08:23 | RAD REPORT ---
EXAM DESCRIPTION: RAD - Chest Single View - 03/29/2018 7:28 am CLINICAL HISTORY: pulmonary edema Chest pain. COMPARISON: Chest Single View dated 03/28/2018; Chest Single View dated 03/22/2018; Chest Single Vie w dated 03/21/2018; Chest Single View dated 03/07/2018 FINDINGS: Portable technique limits examination quality. Bilateral pulmonary opacities are again noted, moderately improved since the comparative study. The h eart is upper limit normal in size. No displaced fractures. IMPRESSION: Moderate improvement in lung aeration since comparative study.
[2018-03-29] MEDS: METHYLPREDNISOLONE 40 MG INJ IV SCH ×2 (08:36→17:42)
[2018-03-29] MEDS: ASCORBIC ACID 500 MG TABLET PO SCH (09:00)
[2018-03-29] MEDS: PROMOD 30 ML DOSE PO SCH ×2 (09:00→20:19)
[2018-03-29] MEDS: APIXABAN 5 MG TABLET PO SCH ×2 (09:00→10:25)
[2018-03-29] MEDS: THIAMINE HCL 100 MG TABLET PO SCH (09:00)
--- NOTE | 2018-03-29 09:21 | P.PN ---
Subjective Date of Service: 03/29/18 I was called to see patient because he was more short of breath. He was not willing to keep his BiPAP on. He appeared to be in a panic. A reviewed his chart and his chest x-ray appeared to look much worse. He had hypoalbuminemia and his echo revealed an ejection fraction of less than 40%. Patient has not been on any diuretics. Will go ahead and give IV albumin and IV Lasix. Patient has significant JV distention indicative of elevated right-sided heart pressures. After the Lasix patient put out almost a L of urine output. Will continue monitoring the patient in ICU. Will repeat chest x-ray labs this morning. Hopefully patient starts improving. Review of Systems difficult Physical Examination - Vital Signs Temperature: 97.9 F Blood Pressure: 123/95 Pulse: 119 Respirations: 40 Pulse Ox (%): 93 - Physical Exam General: Alert, In no apparent distress, Oriented x3, Oriented x1 HEENT: Atraumatic, PERRLA, EOMI Neck: Supple, JVD distended (TO THE ANGLE OF THE MANDIBLE) Respiratory: Crackles/rales, Expiratory wheezes, Rhonchi/gurgles Cardiovascular: Regular rate/rhythm, Normal S1 S2 Gastrointestinal: Normal bowel sounds, Soft and benign, Non-distended, No tenderness Musculoskeletal: No clubbing, No tenderness, Swelling Integumentary: No rashes Neurological: Normal speech, Normal tone, Sensation intact, Cranial nerves 3-12 intact, Normal affect Lymphatics: No axilla or inguinal lymphadenopathy - Studies Medications List Reviewed: Yes Assessment & Plan - Problems (Diagnosis) (1) Acute exacerbation of CHF (congestive heart failure) Current Visit: Yes Status: Acute (2) History of lung cancer Current Visit: Yes Status: Acute (3) COPD exacerbation Onset Date: 03/22/18 Current Visit: Yes Status: Acute (4) Interstitial lung disease Current Visit: Yes Status: Acute (5) Pleural effusion Current Visit: Yes Status: Acute - Plan 1. Continue with IV antibiotics 2. Repeat chest x-ray 3. Will proceed with CT scan of the chest to rule out pulmonary embolus 4. ReConsult pulmonary 5. Continue with nebs as needed 6. BiPAP-to assist with hypoxemia 7. Repeat labs including CBC and renal function in a.m. 8. IV albumin with IV Lasix 9. Daily weight 10. Strict input and output 11. GI and DVT prophylaxis Discharge Plan: Shelter Plan to discharge in: Greater than 2 days - Advance Directives Does patient have a Living Will: No Does patient have a Durable POA for Healthcare: Yes - Code Status/Comfort Care Code Status: Full Code Physician Review: Patient Assessed, Agree with Above Assessment and Plan Time Spent Managing PTS Care (In Minutes): 65
[2018-03-29 10:57] LABS: Arterial Blood Carboxyhemoglob 1.3 % (0-1.5); Blood Gas Oxyhemoglobin 93.4 % (94-97)
[2018-03-29] MEDS: LORazepam 2 MG/ML VIAL IV PRN ×2 (11:24→20:46)
[2018-03-29] MEDS: PRAMIPEXOLE 1 MG TAB PO SCH (12:00)
[2018-03-29] MEDS: AA 5%/D20W/ELECTROLYTES-TPN 2,000 ML, Lipids 20% 250 ML with MULTIVITAMINS INJ 10 ML IV SCH ×3 (17:42)
[2018-03-29] MEDS: ENOXAPARIN 80 MG/0.8 ML SQ SCH (17:42)
--- NOTE | 2018-03-29 18:30 | P.PN ---
Subjective Date of Service: 03/29/18 Chief Complaint: sepsis Patient seen and examined at bedside. Daughters at bedside. Chart reviewed and case discussed with nursing staff. Answer to ICU overnight as patient agitated travel BiPAP off. He becomes very anxious with BiPAP as well, gasping for air. Discussed with daughters at bedside Review of Systems As noted Physical Examination - Vital Signs Temperature: 97.1 F Blood Pressure: 102/51 Pulse: 85 Respirations: 25 Pulse Ox (%): 99 - Physical Exam General: Moderate distress, Severe distress, Confused Respiratory: Other (On BiPAP, no wheezes or crackles heard) Cardiovascular: No edema, Irregular heart rate/rhythm (Tachycardic) - Studies Medications List Reviewed: Yes Assessment And Plan - Plan This is an 87-year-old male with: Septic shock secondary to pneumonia, seems to be improving with numbers. Clinically no improvement noted. Blood pressure is stable on antibiotics. IV antibiotics adjusted. Cultures are negative. Acute chronic obstructive pulmonary disease exacerbation, worsens. Transfer is to the ICU. Continue BiPAP at this time, Dr. Thayer on board. on nebulizer treatments. ABGs that were done this morning to not look too terrible, though if clinically deteriorating, he may need to be intubated. Discussed with daughters, patient's wish was to have everything done as possible. He remains a full code Acute respiratory distress with hypoxia requiring BiPAP secondary to chronic obstructive pulmonary disease and possible pulmonary embolism. New-onset atrial fibrillation, paroxysmal. Continue with Eliquis for rate control. Bilateral lower lobe pneumonia, healthcare associated. Continue with antibiotics, IV cefepime. IV antibiotics adjusted. Cultures negative to date. Possible pulmonary embolism. Unable to do any imaging as patient not stable enough. Will treat with Lovenox full dose. Bilateral pleural effusions, likely coming from his history of lung cancer. History of small cell lung cancer. On chart review, patient noted to be on oral chemotherapy medication trend last visit, which was stopped for 2 weeks due to excessive nausea vomiting. I am unsure if patient has restarted taking the medication as he is unable to tell me so and there is no family at bedside. Attempts to call our number provided, unable to reach or leave a message. Will attempt to contact her again for further information Elevated troponin level secondary to septic shock. No intervention planned. Appreciate Dr. Garber's and Dr. Montejo's input. Hypothyroidism. Continue Synthroid. Severe protein-calorie malnutrition. To continue p.o. protein supplementation. Acute on chronic kidney disease stage 3. Creatinine stable. We will monitor and avoid NSAIDs. Normocytic normochromic anemia secondary to anemia of chronic disease. Hypertensive heart disease. Acute metabolic encephalopathy, unclear etiology. Improved. CT head negative for any acute abnormalities. Continue to monitor. This may be secondary to medication side effect. DVT prophylaxis: Lovenox GI prophylaxis: Not needed Diet: Heart healthy Disposition: Poor prognosis long-term. Continue to monitor in ICU, wean BiPAP as tolerated. If deteriorating, may need to be intubated. - Code Status/Comfort Care Code Status Assessed: Yes Code Status: Full Code Physician Review: Patient Assessed, Agree with Above Assessment and Plan Critical Care: Yes Time Spent Managing PTS Care (In Minutes): 55
[2018-03-29] MEDS: FERROUS SULFATE 325 MG TAB PO SCH (20:19)
[2018-03-30] MEDS: METHYLPREDNISOLONE 40 MG INJ IV SCH ×4 (00:27→17:42)
[2018-03-30] MEDS: CEFEPIME/SWI 1gm 1 GM/10 ML SYR IVP SCH ×3 (00:27→17:42)
[2018-03-30] MEDS ORDERED: D50W 25 GM/50 ML SYRINGE IV PRN (00:38)
[2018-03-30] MEDS ORDERED: GLUCAGON 1 MG/VIAL IM PRN (00:38)
[2018-03-30] MEDS: LORazepam 2 MG/ML VIAL IV PRN ×2 (01:07→19:36)
[2018-03-30] MEDS: INSULIN -REGULAR HUMAN 50 UNIT/0.5 ML ML SQ SCH ×4 (01:07→18:25)
[2018-03-30] MEDS: LEVOTHYROXINE SOD 0.075 MG TAB PO SCH (05:56)
[2018-03-30] MEDS: PANTOPRAZOLE 40MG TABLET PO SCH (05:56)
[2018-03-30] MEDS: ARFORMOTEROL TARTRATE 15 MCG/2 ML VIAL.NEB NEB SCH ×2 (07:28→19:50)
--- NOTE | 2018-03-30 08:14 | P.PN ---
Subjective Date of Service: 03/30/18 Chief Complaint: Respiratory failure Patient is still hypoxic unable to tolerate being off the BiPAP alert responsive cooperative unable to swallow yesterday Review of Systems is unable to be obtained Physical Examination - Vital Signs Temperature: 97.6 F Blood Pressure: 122/86 Pulse: 100 Respirations: 21 Pulse Ox (%): 96 - Physical Exam General: Alert, Cooperative Respiratory: Crackles/rales Cardiovascular: No edema Gastrointestinal: Normal bowel sounds, Soft and benign - Studies Medications List Reviewed: Yes Assessment & Plan - Problems (Diagnosis) (1) Interstitial lung disease Current Visit: Yes Status: Acute Plan: Patient has significant bilateral interstitial lung disease I have added Lasix continue with antibiotics labs chest x-ray trial off BiPAP consider L tach reduce dose of steroids (2) Respiratory failure Current Visit: Yes Status: Acute Plan: Acute resp failure Requiring BIPAP. withsig ILD on CXRY Qualifiers: Chronicity: acute Physician Review: Patient Assessed, Agree with Above Assessment and Plan
[2018-03-30] MEDS: ASCORBIC ACID 500 MG TABLET PO SCH (08:17)
[2018-03-30] MEDS: PROMOD 30 ML DOSE PO SCH ×2 (08:17→19:36)
[2018-03-30] MEDS: THIAMINE HCL 100 MG TABLET PO SCH (08:17)
[2018-03-30] MEDS: FUROSEMIDE 20 MG/ 2ML VIAL IV SCH ×2 (08:20→17:42)
[2018-03-30 08:30] LABS: Hematocrit 25.1 % (39.6-49.0); MPV 7.7 fL (7.6-11.3); RBC Red Blood Cell Count 2.84 M/uL (4.33-5.43)
[2018-03-30 08:45] LABS: Potassium 3.2 mmol/L (3.5-5.1)
--- NOTE | 2018-03-30 09:50 | RAD REPORT ---
EXAM DESCRIPTION: [place] Single View03/30/2018 8:44 am CLINICAL HISTORY: Shortness of breath COMPARISON: March 29 FINDINGS: No significant change in extensive bilateral pulmonary opacities. Heart remains enlarged IMPRESSION: No change the extensive bilateral pulmonary opacities
[2018-03-30] MEDS: PRAMIPEXOLE 1 MG TAB PO SCH (12:00)
--- NOTE | 2018-03-30 12:38 | P.PN ---
Subjective Date of Service: 03/30/18 Chief Complaint: Respiratory failure Subjective: No new changes, Improving Patient seen and examined at bedside. Daughters at bedside. Chart reviewed and case discussed with nursing staff. Patient much more awake and alert this morning. Has been off of BiPAP since 8: 00 a.m.. Currently on Venti mask. He does have TPN running, though at the time of my exam, daughter at bedside feeding patient applesauce and yogurt. Patient more focal this morning, though still having episodes of tachypnea. Review of Systems Noted Physical Examination - Vital Signs Temperature: 97.6 F Blood Pressure: 91/57 Pulse: 117 Respirations: 30 Pulse Ox (%): 92 - Physical Exam General: Mild distress, Moderate distress, Confused Neck: JVD not distended Respiratory: Other (Ventimask, off BiPAP since 8:00 a.m.) - Studies Medications List Reviewed: Yes Assessment And Plan - Plan This is an 87-year-old male with: Septic shock secondary to pneumonia, improving. Blood pressure is stable on antibiotics. Continue current IV antibiotics. Cultures are negative. Acute chronic obstructive pulmonary disease exacerbation, improving. Continue BiPAP as needed at this time, Dr. Thayer on board. Continue IV Lasix and, 20 mg b.i.d.. Discussed with daughters, patient's wish was to have everything done as possible. He remains a full code Acute respiratory distress with hypoxia requiring BiPAP secondary to chronic obstructive pulmonary disease and possible pulmonary embolism. New-onset atrial fibrillation, paroxysmal. Continue with Eliquis for rate control. Bilateral lower lobe pneumonia, healthcare associated. Continue with current antibiotics. Cultures negative to date. Possible pulmonary embolism. Unable to do any imaging as patient not stable enough. Will treat with Lovenox full dose. Bilateral pleural effusions, likely coming from his history of lung cancer. History of small cell lung cancer. On chart review, patient noted to be on oral chemotherapy medication last visit , which was stopped for 2 weeks due to excessive nausea vomiting. I am unsure if patient has restarted taking the medication as he is unable to tell me so and there is no family at bedside. Attempts to call our number provided, unable to reach or leave a message. Will attempt to contact her again for further information Elevated troponin level secondary to septic shock. No intervention planned. Appreciate Dr. Garber's and Dr. Montejo' input. Hypothyroidism. Continue Synthroid. Severe protein-calorie malnutrition. To continue p.o. protein supplementation. Acute on chronic kidney disease stage 3. Creatinine stable. We will monitor and avoid NSAIDs. Normocytic normochromic anemia secondary to anemia of chronic disease. Hypertensive heart disease. Acute metabolic encephalopathy CT head negative for any acute abnormalities. Continue to monitor. DVT prophylaxis: Lovenox GI prophylaxis: Not needed Diet: Heart healthy Disposition: Poor prognosis long-term. Continue to monitor in ICU, wean BiPAP as tolerated. If deteriorating, may need to be intubated. - Code Status/Comfort Care Code Status: Full Code Physician Review: Patient Assessed, Agree with Above Assessment and Plan Critical Care: Yes Time Spent Managing PTS Care (In Minutes): 45
[2018-03-30] MEDS ORDERED: VANCOMYCIN 1.25 GM in NA CHLORIDE 0.9% 250 ML IVPB SCH (13:00)
[2018-03-30] MEDS: AA 5%/D20W/ELECTROLYTES-TPN 2,000 ML, Lipids 20% 250 ML with MULTIVITAMINS INJ 10 ML IV SCH ×3 (17:41)
[2018-03-30] MEDS: ENOXAPARIN 80 MG/0.8 ML SQ SCH (17:42)
[2018-03-30] MEDS: FERROUS SULFATE 325 MG TAB PO SCH (19:36)
[2018-03-31] MEDS: CEFEPIME/SWI 1gm 1 GM/10 ML SYR IVP SCH ×3 (00:24→16:40)
[2018-03-31] MEDS: INSULIN -REGULAR HUMAN 50 UNIT/0.5 ML ML SQ SCH ×4 (00:24→17:38)
[2018-03-31] MEDS: METHYLPREDNISOLONE 40 MG INJ IV SCH ×2 (00:24→08:15)
[2018-03-31] MEDS: LORazepam 2 MG/ML VIAL IV PRN (00:25)
[2018-03-31 05:46] VITALS: BMI 23.3
[2018-03-31] MEDS: LEVOTHYROXINE SOD 0.075 MG TAB PO SCH (05:49)
[2018-03-31] MEDS: PANTOPRAZOLE 40MG TABLET PO SCH (05:49)
[2018-03-31 07:33] LABS: Absolute Lymphocytes (CBC) 0.4 K/uL (0.7-4.9); Absolute Monocytes 0.5 K/uL (0.1-1.3); Absolute Neutrophil 11.7 K/uL (1.8-8.0); Basophils % 0.2 % (0-1.3); Hematocrit 24.4 % (39.6-49.0); Lymphocytes % 3.4 % (15.3-44.8); MPV 7.7 fL (7.6-11.3); Monocytes % 4.1 % (3.3-12.3); RBC Red Blood Cell Count 2.74 M/uL (4.33-5.43)
[2018-03-31 07:51] LABS: Magnesium 2.3 mg/dL (1.8-2.4); Phosphorus 3.4 mg/dL (2.5-4.9); Potassium 3.1 mmol/L (3.5-5.1)
[2018-03-31] MEDS: ARFORMOTEROL TARTRATE 15 MCG/2 ML VIAL.NEB NEB SCH (08:03)
[2018-03-31] MEDS: FUROSEMIDE 20 MG/ 2ML VIAL IV SCH (08:15)
[2018-03-31] MEDS: ASCORBIC ACID 500 MG TABLET PO SCH (08:16)
[2018-03-31] MEDS: PROMOD 30 ML DOSE PO SCH (08:16)
[2018-03-31] MEDS: THIAMINE HCL 100 MG TABLET PO SCH (08:16)
--- NOTE | 2018-03-31 09:09 | RAD REPORT ---
EXAM DESCRIPTION: [facility] Single View03/31/2018 6:53 am CLINICAL HISTORY: Shortness of breath COMPARISON: March 30 FINDINGS: Mild worsening in the right upper lobe opacities with mild atelectasis No significant change in additional bilateral pulmonary opacities The heart is mildly enlarged
[2018-03-31] MEDS ORDERED: HALOPERIDOL LACT 5 MG/ML INJ IV PRN (10:46)
--- NOTE | 2018-03-31 10:49 | P.PN ---
Subjective Date of Service: 03/31/18 Chief Complaint: Respiratory failure No change in patient's condition is intermittently confused still requiring BiPAP Review of Systems is unable to be obtained Physical Examination - Vital Signs Temperature: 97.6 F Blood Pressure: 109/80 Pulse: 112 Respirations: 24 Pulse Ox (%): 93 - Physical Exam General: Moderate distress Neck: Supple Respiratory: Crackles/rales Cardiovascular: No edema, Normal S1 S2 - Studies Medications List Reviewed: Yes Assessment & Plan - Problems (Diagnosis) (1) Interstitial lung disease Current Visit: Yes Status: Acute Plan: Patient has significant bilateral interstitial lung disease I have added Lasix continue with antibiotics labs chest x-ray trial off BiPAP consider L tach reduce dose of steroids (2) Respiratory failure Current Visit: Yes Status: Acute Plan: Patient has most likely ARDS discuss with the family members need to discuss with the patient regarding DNR and the 6 change to once a day Dc vancomycin Dc steroids and Ativan use Haldol labs reviewed renal function is worse plan to advance his dietary intake chest x-ray shows diffuse bilateral changes prognosis is very poor advise the family members to consider hospice care Qualifiers: Chronicity: acute Physician Review: Patient Assessed, Agree with Above Assessment and Plan
[2018-03-31 13:02] VITALS: O2SAT 100
[2018-03-31] MEDS: KCL 20 MEQ/100 mL IVPB 20 MEQ/100 ML BAG IV SCH ×2 (13:08→14:31)
[2018-03-31] MEDS ORDERED: MORPHINE 2 MG/ML SYR IV ONE (14:49)
[2018-03-31] MEDS: ENOXAPARIN 80 MG/0.8 ML SQ SCH (16:40)
[2018-03-31 18:00] VITALS: TEMP 99.9
[2018-03-31 19:08] VITALS: BP 108/75
--- NOTE | 2018-03-31 19:14 | P.PN ---
Subjective Date of Service: 03/31/18 Chief Complaint: Respiratory failure Subjective: No new changes, No C/O voiced Patient seen and examined at bedside. Daughters at bedside. Chart reviewed and case discussed with nursing staff. Patient's mentation waxing and waning. Also the need to use BiPAP intermittently. Review of Systems 10-point ROS is otherwise unremarkable Physical Examination - Vital Signs Temperature: 99.9 F Blood Pressure: 108/75 Pulse: 124 Respirations: 24 Pulse Ox (%): 97 - Studies Medications List Reviewed: Yes Assessment And Plan - Plan This is an 87-year-old male with: Septic shock secondary to pneumonia, Blood pressure is stable on antibiotics. Continue current IV antibiotics. Cultures are negative. Acute chronic obstructive pulmonary disease exacerbation, improving. Continue BiPAP as needed at this time, Dr. Thayer on board. Continue IV Lasix and, 20 mg b.i.d.. Acute respiratory distress with hypoxia requiring BiPAP secondary to chronic obstructive pulmonary disease and possible pulmonary embolism. New-onset atrial fibrillation, paroxysmal. Continue with Eliquis for rate control. Bilateral lower lobe pneumonia, healthcare associated. Continue with current antibiotics. Cultures negative to date. Possible pulmonary embolism. Unable to do any imaging as patient not stable enough. Will treat with Lovenox full dose. Bilateral pleural effusions, likely coming from his history of lung cancer. History of small cell lung cancer. On chart review, patient noted to be on oral chemotherapy medication last visit , which was stopped for 2 weeks due to excessive nausea vomiting. I am unsure if patient has restarted taking the medication as he is unable to tell me so and there is no family at bedside. Attempts to call our number provided, unable to reach or leave a message. Will attempt to contact her again for further information Elevated troponin level secondary to septic shock. No intervention planned. Appreciate Dr. Garber's and Dr. Montejo' input. Hypothyroidism. Continue Synthroid. Severe protein-calorie malnutrition. To continue p.o. protein supplementation. Acute on chronic kidney disease stage 3. Creatinine stable. We will monitor and avoid NSAIDs. Normocytic normochromic anemia secondary to anemia of chronic disease. Hypertensive heart disease. Acute metabolic encephalopathy CT head negative for any acute abnormalities. Continue to monitor. DVT prophylaxis: Lovenox GI prophylaxis: Not needed Diet: Heart healthy Disposition: Poor prognosis long-term. It seems that family has decided to go with hospice, hospice consulted. Pending hospice evaluation Physician Review: Patient Assessed, Agree with Above Assessment and Plan
[2018-04-01] MEDS ORDERED: THIAMINE 200 MG/2 ML INJ IVP SCH (09:00)
[2018-04-01] MEDS ORDERED: FUROSEMIDE 20 MG/ 2ML VIAL IV SCH (09:00)
--- NOTE | 2018-04-01 12:30 | P.DS ---
Admission Date: 03/21/18 Discharge Date: 04/01/18 Disposition: HOSPICE-MEDICAL FACILITY Discharge Condition: SERIOUS Reason for Admission: Respiratory failure Consultations: Cardiology Pulmonology Brief History of Present Illness: Mr Garrett is an 87 years old male with history of NSCC of the lyng, COPD, former smoker, hypothyroidism, who start today with progressive SOB and cough. He has had fever as well. The patient is very hard hearing. At arrival the patient was hypotensive, febrile and tachycardic, O2 sat 90% on RA. Lab work remarkable for leukocytosis, normal lactate but elevated procalcitonin. Trop I was also elevated in context of acute on CKD. CXR remarkable for bilateral infiltrate consistent with pneumonia. Hospital Course: Patient With a history of small-cell lung cancer who was admitted with septic shock, likely secondary to pneumonia. He was started on IV antibiotics he. He seemed to deteriorate in respiratory garcia, was using BiPAP and we were unable to wean him off BiPAP. He was transferred to the ICU, did receive IV Lasix along with the BiPAP. He it was very difficult transition patient off BiPAP, even when taken off BiPAP for feeding, he would decide at, start panicking gasping for air. He was also started on Lovenox to cover for a possible pulmonary embolism. Imaging/further testing was unable to be done as patient was not stable enough for it. His blood cultures did remained negative throughout. He remained in the ICU for the rest of the stay, trying to wean off BiPAP, we were unable to do so for very long. His time. He was a full code , it was discussed with patient and the family regarding code status. They were not sure how they wanted to proceed, patient getting confused and was unable to express his wishes properly. Family did decide to converted to a DNR , they did have a meeting with hospice and eventually decided to convert patient to hospice inpatient. Patient was discharged from the ICU for inpatient hospice care. Vital Signs/Physical Exam: Temp Pulse Resp BP Pulse Ox 99.9 F 124 H 24 H 108/75 97 04/01/18 12:30 04/01/18 12:30 04/01/18 12:30 04/01/18 12:30 04/01/18 12:30 General: Moderate distress, Confused Respiratory: Clear to auscultation bilaterally Laboratory Data at Discharge: WBC 12.7 K/uL (4.3-10.9) H 03/31/18 07:22 Hgb 8.2 g/dL (13.6-17.9) L 03/31/18 07:22 Hct 24.4 % (39.6-49.0) L 03/31/18 07:22 Plt Count 348 K/uL (152-406) 03/31/18 07:22 PT 14.8 SECONDS (9.5-12.5) H 03/21/18 14:56 INR 1.25 03/21/18 14:56 APTT 39.8 SECONDS (24.3-36.9) H 03/21/18 14:56 Sodium 145 mmol/L (136-145) 03/31/18 07:22 Potassium 3.1 mmol/L (3.5-5.1) L 03/31/18 07:22 BUN 79 mg/dL (7-18) H 03/31/18 07:22 Creatinine 2.23 mg/dL (0.55-1.3) H 03/31/18 07:22 Glucose 221 mg/dL (74-106) H 03/31/18 07:22 Phosphorus 3.4 mg/dL (2.5-4.9) 03/31/18 07:22 Magnesium 2.3 mg/dL (1.8-2.4) 03/31/18 07:22 Total Bilirubin 0.5 mg/dL (0.2-1.0) 03/29/18 06:39 AST 18 U/L (15-37) 03/29/18 06:39 ALT 34 U/L (12-78) 03/29/18 06:39 Alkaline Phosphatase 68 U/L (45-117) 03/29/18 06:39 Troponin I 0.36 ng/mL (0.0-0.045) H 03/21/18 22:21 Lipase 106 U/L (73-393) 03/21/18 14:56 Home Medications: RX: Levothyroxine [Synthroid*] 0.15 mg PO [id number] 08/09/12 RX: Pramipexole Di-HCl [Mirapex] 1.5 mg PO NOON 08/09/12 RX: Cranberry 4,200 mg PO TID 03/08/18 RX: Cyanocobalamin (Vitamin B-12) [Vitamin B12] 1 tab PO DAILY 03/08/18 RX: Fish Oil/Dha/Epa [Fish Oil 1,200 mg Fish Oil] 1,200 mg PO BID 03/08/18 Albuterol Sulfate [Proair Hfa] 2 puff IH TID PRN #1 hfa.aer.ad 03/09/18 Budesonide/Formoterol Fumarate [Symbicort 160-4.5 Mcg Inhaler] 2 puff IH BID #1 hfa.aer.ad 03/09/18 Pantoprazole [Protonix Tab] 40 mg PO DAILY #30 tab 03/09/18 metroNIDAZOLE [Flagyl] 500 mg PO TID #21 tablet 03/09/18 Ferrous Sulfate [Iron] 325 mg PO BEDTIME 03/22/18 Time spent managing pt's care (in minutes): 55
== END 2018-03-31 20:00 | disposition hospice, inpatient (51) | DRG 871 ==
LOC: ER 14:30 → ERHOLD 17:48 → 3RD-ICU 20:09 → 2ND 03-24 11:54 → 3RD-ICU 03-29 06:40
PROVIDERS: ADMIT Family Medicine; ATTEND Family Medicine
PROC: 5A09557 Assistance with Respiratory Ventilation, Greater than 96 Consecutive Hours, Continuous Positive Airway Pressure (ICD-10-PCS; principal; 2018-03-21)
PROC: 06HY33Z Insertion of Infusion Device into Lower Vein, Percutaneous Approach (ICD-10-PCS; 2018-03-21)
DX: A41.9 Sepsis, unspecified organism (principal); J18.1 Lobar pneumonia, unspecified organism; R65.21 Severe sepsis with septic shock; J96.01 Acute respiratory failure with hypoxia; E43 Unspecified severe protein-calorie malnutrition; G93.41 Metabolic encephalopathy; J44.0 Chronic obstructive pulmonary disease with (acute) lower respiratory infection; J44.1 Chronic obstructive pulmonary disease with (acute) exacerbation; C34.90 Malignant neoplasm of unspecified part of unspecified bronchus or lung; N17.9 Acute kidney failure, unspecified; E87.3 Alkalosis; J91.8 Pleural effusion in other conditions classified elsewhere; L03.116 Cellulitis of left lower limb; L03.115 Cellulitis of right lower limb; R65.20 Severe sepsis without septic shock; Z87.891 Personal history of nicotine dependence; E03.9 Hypothyroidism, unspecified; I95.9 Hypotension, unspecified; G25.81 Restless legs syndrome; D63.1 Anemia in chronic kidney disease; Y95 Nosocomial condition; R79.89 Other specified abnormal findings of blood chemistry; K21.9 Gastro-esophageal reflux disease without esophagitis; R00.0 Tachycardia, unspecified; I45.10 Unspecified right bundle-branch block; I48.0 Paroxysmal atrial fibrillation; I13.10 Hypertensive heart and chronic kidney disease without heart failure, with stage 1 through stage 4 chronic kidney disease, or unspecified chronic kidney disease; N18.3 Chronic kidney disease, stage 3 (moderate); Z51.5 Encounter for palliative care; Z66 Do not resuscitate; Z68.21 Body mass index [BMI] 21.0-21.9, adult
CPT/HCPCS: 36415; 70450; 71045; 71250; 80048; 80053; 80076; 80202; 81003; 81015; 82533; 82550; 82553; 82805; 82962; 83605; 83690; 83735; 83880; 84100; 84145; 84484; 85025; 85027; 85379; 85610; 85730; 86140; 87040; 87086; 87088; 87804; 93005; 93306; 93970; 94640; 94660; 94760; 99285; J0456; J0692; J0696; J1630; J1650; J1720; J1940; J2270; J2920; J3370; J3411; J7030; J7060; J7512; J7605; P9047

== ENCOUNTER 2018-03-31 20:02 | Inpatient (IN) | payer OTHER ==
[2018-03-31] MEDS ORDERED: HALOPERIDOL LACT 5 MG/ML INJ IV PRN (20:17)
[2018-03-31] MEDS ORDERED: ONDANSETRON 4 MG/2 ML VIAL IV PRN (20:23)
[2018-03-31] MEDS ORDERED: BISACODYL 10 MG RECTAL SUPP PR PRN (20:25)
[2018-03-31] MEDS: LORazepam 2 MG/ML VIAL IV PRN ×2 (21:24→23:26)
[2018-03-31] MEDS: SCOPOLAMINE HYDROBROMIDE PATCH TD PRN (21:34)
[2018-03-31] MEDS: MORPHINE 2 MG/ML SYR IV PRN ×2 (21:42→23:30)
[2018-04-01] MEDS: LORazepam 2 MG/ML VIAL IV PRN (03:47)
[2018-04-01] MEDS: MORPHINE 2 MG/ML SYR IV PRN ×4 (03:48→22:19)
[2018-04-01 05:57] VITALS: BMI 23.1
[2018-04-01] MEDS: FUROSEMIDE 20 MG/ 2ML VIAL IV SCH (08:27)
[2018-04-01] MEDS: MORPHINE 2 MG/ML SYR IV SCH ×4 (11:28→20:00)
--- NOTE | 2018-04-01 14:20 | P.HP ---
Certification for Inpatient Patient admitted to: Inpatient With expected LOS: >2 Midnights Patient will require the following post-hospital care: None Practitioner: I am a practitioner with admitting privileges, knowledge of patient current condition, hospital course, and medical plan of care. Services: Services provided to patient in accordance with Admission requirements found in Title 42 Section 412.3 of the Code of Federal Regulations Patient History Date of Service: 04/01/18 History of Present Illness: Mr Garrett is an 87 years old male with history of NSCC of the lung, COPD, former smoker, hypothyroidism, and recently admitted to the hospital for acute respiratory failure secondary to sepsis secondary to pneumonia. Patient was referred over to hospice due to declining acute respiratory status and end- stage COPD and CHF. Patient's family made patient DNR DNI and [facility]. Allergies No Known Allergies Allergy (Verified 08/08/12 18:11) Home Medications: Levothyroxine [Synthroid*] 0.15 mg PO [id number] 08/09/12 Pramipexole Di-HCl [Mirapex] 1.5 mg PO NOON 08/09/12 Cranberry 4,200 mg PO TID 03/08/18 Cyanocobalamin (Vitamin B-12) [Vitamin B12] 1 tab PO DAILY 03/08/18 Fish Oil/Dha/Epa [Fish Oil 1,200 mg Fish Oil] 1,200 mg PO BID 03/08/18 Albuterol Sulfate [Proair Hfa] 2 puff IH TID PRN #1 hfa.aer.ad 03/09/18 Budesonide/Formoterol Fumarate [Symbicort 160-4.5 Mcg Inhaler] 2 puff IH BID #1 hfa.aer.ad 03/09/18 Pantoprazole [Protonix Tab] 40 mg PO DAILY #30 tab 03/09/18 metroNIDAZOLE [Flagyl] 500 mg PO TID #21 tablet 03/09/18 Ferrous Sulfate [Iron] 325 mg PO BEDTIME 03/22/18 - Past Medical/Surgical History Diabetic: No -: Non small-cell lung cancer -: Hypothyroidism -: Former tobacco use -: Restless leg syndrome -: Chronic diarrhea/nausea -: R inguinal hernia -: Diverticulosis -: Emphysema -: polyp removal -: blister on lip removed -: Lung biopsy Psychosocial/ Personal History: The patient is a . He lives by himself. He has several children - Social History Smoking Status: Former smoker Alcohol use: No CD- Drugs: No Caffeine use: No Place of Residence: Home Review of Systems 10-point ROS is otherwise unremarkable Physical Examination - Vital Signs Temperature: 98.1 F Blood Pressure: 96/60 Pulse: 86 Respirations: 12 Pulse Ox (%): 91 - Physical Exam General: In no apparent distress, Moderate distress HEENT: Atraumatic, Mucous membr. moist/pink, EOMI, Sclerae nonicteric Neck: Supple, 2+ carotid pulse no bruit, No LAD, Without JVD or thyroid abnormality Respiratory: Clear to auscultation bilaterally, Normal air movement Cardiovascular: Regular rate/rhythm, Normal S1 S2 Gastrointestinal: Normal bowel sounds, No tenderness Musculoskeletal: No tenderness Integumentary: No rashes Assessment and Plan - Problems (Diagnosis) (1) Admission for hospice care Current Visit: Yes Status: Acute (2) Acute exacerbation of CHF (congestive heart failure) Current Visit: No Status: Acute Qualifiers: Heart failure type: combined systolic and diastolic Qualified Code(s): I50.43 - Acute on chronic combined systolic (congestive) and diastolic ( congestive) heart failure (3) COPD (chronic obstructive pulmonary disease) Onset Date: 03/08/18 Current Visit: No Status: Acute Qualifiers: COPD type: chronic bronchitis Chronic bronchitis type: mixed simple and mucopurulent Qualified Code(s): J41.8 - Mixed simple and mucopurulent chronic bronchitis - Plan The patient is admitted to inpatient hospice due to rapidly declining respiratory status. Will continue to monitor patient closely here in the hospital. P.r.n. medication for hospice already on board. Discharge Plan: Other Plan to discharge in: Greater than 2 days - Advance Directives Does patient have a Living Will: No Does patient have a Durable POA for Healthcare: Yes - Code Status/Comfort Care Code Status Assessed: Yes Comfort Measures: Hospice Care Critical Care: Yes
[2018-04-01] MEDS: ATROPINE 1% OPTH DROPS 5ML SL PRN (21:17)
[2018-04-02] MEDS: MORPHINE 2 MG/ML SYR IV SCH ×7 (00:29→23:55)
[2018-04-02] MEDS: MORPHINE 2 MG/ML SYR IV PRN ×4 (02:22→22:28)
[2018-04-02] MEDS: LORazepam 2 MG/ML VIAL IV PRN ×6 (03:38→20:15)
[2018-04-02] MEDS: ATROPINE 1% OPTH DROPS 5ML SL PRN ×4 (04:26→16:04)
[2018-04-02] MEDS: FUROSEMIDE 20 MG/ 2ML VIAL IV SCH (08:17)
[2018-04-02] MEDS: ACETAMINOPHEN 650MG/RECT SUPP PR PRN (16:06)
[2018-04-03] MEDS: MORPHINE 2 MG/ML SYR IV SCH ×2 (04:01→08:00)
[2018-04-03] MEDS: ATROPINE 1% OPTH DROPS 5ML SL PRN (04:06)
[2018-04-03] MEDS: LORazepam 2 MG/ML VIAL IV PRN (04:11)
[2018-04-03] MEDS: MORPHINE 4 MG/ML SYR IV SCH ×4 (08:13→20:37)
[2018-04-03] MEDS: FUROSEMIDE 20 MG/ 2ML VIAL IV SCH (08:13)
[2018-04-03] MEDS ORDERED: MORPHINE 4 MG/ML SYR IV PRN (09:00)
[2018-04-04] MEDS: MORPHINE 4 MG/ML SYR IV SCH ×7 (00:55→20:38)
[2018-04-04] MEDS: FUROSEMIDE 20 MG/ 2ML VIAL IV SCH (09:00)
[2018-04-04] MEDS ORDERED: MORPHINE 4 MG/ML SYR IV PRN (13:44)
[2018-04-04] MEDS: SCOPOLAMINE HYDROBROMIDE PATCH TD PRN (18:13)
[2018-04-05] MEDS: MORPHINE 4 MG/ML SYR IV SCH ×6 (01:00→21:08)
[2018-04-05] MEDS: FUROSEMIDE 20 MG/ 2ML VIAL IV SCH (09:29)
[2018-04-05] MEDS: ACETAMINOPHEN 650MG/RECT SUPP PR PRN (09:44)
[2018-04-06] MEDS: MORPHINE 4 MG/ML SYR IV SCH ×5 (01:09→13:18)
[2018-04-06] MEDS: ACETAMINOPHEN 650MG/RECT SUPP PR PRN (04:00)
[2018-04-06 08:57] VITALS: TEMP 101.3
[2018-04-06] MEDS: FUROSEMIDE 20 MG/ 2ML VIAL IV SCH (09:03)
[2018-04-06 09:09] VITALS: BP 76/36
[2018-04-06 10:08] VITALS: O2SAT 89
== END 2018-04-06 15:48 | disposition expired | DRG 951 ==
LOC: 3RD-ICU 20:02 → 4TH 04-01 15:50
PROVIDERS: ADMIT Family Medicine; ATTEND Family Medicine
DX: Z51.5 Encounter for palliative care (principal); I50.43 Acute on chronic combined systolic (congestive) and diastolic (congestive) heart failure; C34.90 Malignant neoplasm of unspecified part of unspecified bronchus or lung; J44.9 Chronic obstructive pulmonary disease, unspecified; Z87.891 Personal history of nicotine dependence; E03.9 Hypothyroidism, unspecified; Z66 Do not resuscitate
CPT/HCPCS: J1940; J2270